=== PATIENT | male | born 1995 | race Caucasian/White ===

== ENCOUNTER 2020-02-10 00:39 | Observation (INO) | payer BC, SELFPAY ==
[2020-02-10] VITALS (10 sets, daily range): BP systolic 123–152; BP diastolic 70–93; PULSE 90–110; RESP 10–22; TEMP 36.3–37.7; O2SAT 90–100; BMI 29.7
--- NOTE | ~2020-02-10 | CT_ITS ---
EXAMINATION: CT chest abdomen pelvis w con DATE: 02/10/2020 09:16 INDICATION: Nausea and vomiting. Bilateral flank pain. TECHNIQUE: Computed tomography (CT) of the chest, abdomen, and pelvis was performed with 100 mL Omnip aque 350 intravenous contrast. Automated exposure control and iterative reconstruction technique were employed. The dose-length product was 811.48 mGy-cm. COMPARISON: CT abdomen and pelvis 08/25/2019 FINDINGS: CHEST CT: There are mild groundglass opacities in left lower lobe. No pleural effusion or pneumothorax. Pneumom ediastinum is noted. The heart size is normal. No pericardial effusion. There is mild thoracic spondy losis. ABDOMEN/PELVIS CT: There is an 8 mm cyst in the liver. The gallbladder, spleen, pancreas, adrenal glands, and kidneys ar e normal. There are no dilated loops of bowel. There is diverticulosis of the colon without evidence of diverticulitis. The appendix is normal. There are no dilated loops of bowel. There are no patholog ically enlarged lymph nodes. There is no free intraperitoneal fluid. There is mild lumbar spondylosis . IMPRESSION: 1. Pneumomediastinum. 2. Mild groundglass opacities in left lung lower lobe, consistent with atelectasis versus pneumonia. Reviewed, dictated and finalized at location A. IMPRESSION: 1. Pneumomediastinum. 2. Mild groundglass opacities in left lung lower lobe, consistent with atelecta sis versus pneumonia.
[2020-02-10] MEDS: LACTATED RINGERS 1,000 ML 999 ML IV CONT ×3 (00:52→01:39)
--- NOTE | 2020-02-10 00:57 | ED.GENADULT ---
HPI - General Adult General Chief complaint: Nausea/Vomiting/Diarrhea Stated complaint: Leg cramping Source: patient Mode of arrival: ambulatory Limitations: no limitations History of Present Illness HPI narrative: 24 y.o. developed abdominal pain and vomiting at 4 PM today after ingesting several beers and shots of alcohol. He thinks he vomited about 20 times over the last 9 hours. The initial emesis was clear, but then coffee ground sometimes, sometimes bilious (this is corroborated by his mother). A hot shower helps reduce his nausea. Between episodes of vomiting he drinks fluid which he vomits right back up. He has a hx of migraine headaches but none today. Just prior to arrival pt began having intense cramping in his calfs, right more than left. Pt became anxious with these symptoms, breathing faster and experiencing tingling in his hands. 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 He drinks Gatoraide throughout the day. Pt was hospitalized [facility] around June and again in August for IVF and tx. of vomiting. Hospital stays were 3 - 4 days. He had abdominal pain and vomiting after a tooth extraction in July. The E.D. note was reviewed. He had hypokalemia as well as A.K.I. and dehydration. Between episodes he is totally symptom free. He has a hx of anxiety and ADHD well controlled (per mother) with current meds. He gets heartburn several times a week which has not worsened and is not treated. He states he was a frequent drinker up until a year ago. Now he has a couple of beers on weekends. It's unusual for him to drink on weekdays. Related Data Home Medications Medication Instructions Recorded Confirmed bupropion HCl 150 mg PO DAILY 08/25/19 02/10/20 diazepam 10 mg PO DAILY 08/25/19 02/10/20 escitalopram oxalate 20 mg PO DAILY 08/25/19 02/10/20 oxcarbazepine 300 mg PO BID 08/25/19 02/10/20 dextroamphetamine-amphetamine 10 mg PO DAILY 02/10/20 02/10/20 [Adderall XR] Allergies Allergy/AdvReac Type Severity Reaction Status Date / Time No Known Allergies Allergy Verified 09/14/19 09:09 Review of Systems Constitutional: Constitutional: Denies chills, Reports fatigue and Denies fever(s) ENT: Denies dysphagia, Denies dizziness and Denies sore throat Cardiovascular: Cardiovascular: Denies chest pain Respiratory: Respiratory: Denies dyspnea Gastrointestinal: Gastrointestinal: Reports no additional gastrointestinal complaints Genitourinary: Genitourinary: Reports dysuria Musculoskeletal: Comments: muscle aching associated with his vomiting. Integumentary/Breasts: Comments: no rash Neurologic: Denies syncope Comments: no headache Psychiatric: Psychiatric: Reports no additional psychiatric complaints Hematologic/Lymphatic: Hematologic/Lymphatic: Denies easy bruising PMFSH Social History Social History (Updated 02/10/20 @ 01:02 by Abdiaziz Raymond) Years smoked: 6 Smoking status: Current every day smoker Tobacco type: cigarettes Second hand tobacco smoke exposure: Yes Alcohol intake: current Drinks per week: 4 Substance use: current Substance use type: marijuana Gender identity (if verbalized by the patient): Male Spiritual care concerns: No Exam Narrative: Exam Narrative: Pt limped through the E.D. on the way to his room secondary to leg cramps. Const: Orientation/consciousness: patient oriented x3 Other: In distress, c/o frequent calf cramping. HENMT: Mouth: Yes Normal oral and palatal mucosa present Eyes: Pupils: Equal, round and reactive pupils present EOM: EOMs intact bilaterally Neck: Neck: no lymphadenopathy Chest: Chest palpation & inspection: normal inspection of the chest Resp: Effort & Inspection: normal respiratory effort Auscultation: clear to auscultation bilaterally Cardio: Rate: not tachycardic Rhythm: regular rhythm GI: GI Palp:
[2020-02-10] MEDS: ONDANSETRON INJ 4 MG/2 ML VIAL IV PUSH ×2 (01:12→06:47)
[2020-02-10 01:35] LABS: Basophils Absolute Auto 0.09 K/mm3 (0.00-0.10); Basophils Percent Auto 0.5 % (0.0-1.0); Eosinophils Absolute Auto 0.02 K/mm3 (0.02-0.50); Eosinophils Percent Auto 0.1 % (1.0-6.0); Hematocrit 51.4 % (40.0-54.0); Immature Granulocyte Absolute 0.29 K/mm3 (0.00-0.00); Immature Granulocyte Percent A 1.7 % (0.0-0.0); Lymphocytes Absolute Auto 2.38 K/mm3 (1.10-4.50); Lymphocytes Percent Auto 14.2 % (18.0-42.0); Mean Corpuscular Hemoglobin 29.6 pg (27.0-31.0); Mean Corpuscular Volume 84.4 fL (78.0-102.0); Mean Platelet Volume 10.6 fl (8.7-11.0); Monocytes Absolute Auto 0.85 K/mm3 (0.10-0.90); Monocytes Percent Auto 5.1 % (2.0-11.0); Neutrophils Absolute Auto 13.1 K/mm3 (1.7-7.2); Neutrophils Percent Auto 78.4 % (50.0-70.0); Platelet Count Result 371 K/mm3 (150-420); Red Blood Count 6.09 M/mm3 (4.70-6.10); Red Cell Distribution Width 13.6 % (11.6-14.4); White Blood Count 16.7 K/mm3 (4.8-10.8)
[2020-02-10 01:43] LABS: Alanine Aminotransferase 39 U/L (16-63); Albumin Level 4.8 g/dL (3.4-5.0); Alkaline Phosphatase 116 U/L (46-116); Anion Gap 20.3 mmol/L (7-16); Aspartate Amino Transferase 26 U/L (15-37); Bilirubin,Total 1.9 mg/dL (0.00-1.00); Blood Urea Nitrogen 35 mg/dL (7-18); CRP 1.2 mg/dL (0.0-0.9); Calcium 9.7 mg/dL (8.5-10.1); Carbon Dioxide 27 mmol/L (21-32); Chloride 95 mmol/L (98-108); Creatine Kinase 322 U/L (39-308); Estimated CRCL calculation 51 ml/min; Estimated Glomerular Filt Rate 37; Ethanol < 3 mg/dL (0-6); Glucose 162 mg/dL (70-99); Lipase 55 U/L (73-393); Osmolality Calculated 300 mOsm/kg (285-295); Potassium 3.3 mmol/L (3.5-5.1); Sodium 139 mmol/L (136-145); Total Protein 8.3 g/dL (6.4-8.2)
[2020-02-10 01:46] LABS: Lactic Acid 3.4 mmol/L (0.4-2.0)
[2020-02-10] MEDS: PANTOPRAZOLE SODIUM IV 40 MG VIAL IV PUSH ×2 (01:47→09:28)
[2020-02-10] MEDS: PROMETHAZINE HCL 25 MG/ML AMPUL IM ×2 (01:52→10:07)
[2020-02-10 02:17] LABS: Add Urine Microscopic? YES; Appearance Urine Clear (Clear); Bilirubin Urine Negative (Negative); Blood Urine Negative (Negative); Color Urine Yellow (Yellow); Glucose Urine UA Negative (Negative); Ketones Urine 3+ (Negative); Leukocyte Esterase Ur Trace (Negative); Nitrate Urine Negative (Negative); Protein Urine Trace (Negative); Specific Grav Ur 1.015 (1.010-1.020); Urobilinogen Urine 0.2 mg/dL (0.2-1.0)
[2020-02-10 02:26] LABS: Amphetamine Screen Urine Negative (Negative); Barbiturate Screen Urine Negative (Negative); Benzodiazepines Screen Urine Positive (Negative); Cannabinoid Screen Urine Positive (Negative); Cocaine Screen Urine Negative (Negative); Methadone Screen Urine Negative (Negative); Opiate Screen Urine Negative (Negative); Phencyclidine Screen Urine Negative (Negative); RBC Urine 0-2 /hpf (0-2); Squamous Epithelial Cell Urine Rare /hpf (Few)
[2020-02-10 02:27] LABS: Bacteria Urine 1+ /hpf; Hyaline Casts Urine 30-49 /lpf
--- NOTE | 2020-02-10 02:35 | PC.NURSE ---
While pt is sleeping it is noted his oxygen sat drops 87-90%, pt placed on 2L NC. ERP aware
[2020-02-10] MEDS: KETOROLAC 30 MG/ML VIAL (*BKC) IV PUSH (02:47)
[2020-02-10] MEDS: LACTATED RINGERS 1,000 ML 125 ML IV CONT ×2 (03:11→12:10)
--- NOTE | 2020-02-10 03:53 | ADMGEN ---
This patient, Wenceslao Ruiz, was admitted to 2nd Floor Room 203-2. Patient oriented to hospital policies and general routines including ID bracelet, bed and alarms, visiting hours, pain management, procedures, bathroom and other care routines, personal items, smoking policy, room service/diet, and visiting hours. Information on how to activate the Rapid Response Team has been discussed. Patient encouraged to report perceived risks to care and to ask questions if they do not understand what they are told or what they should do.
--- NOTE | 2020-02-10 04:07 | PC.NURSE ---
pt is vomiting, charge master analyst calling Dr Angel regarding medication
--- NOTE | 2020-02-10 04:09 | PC.NURSE ---
Attempted to talk to Dr. Angel but he was with a patient in ER.
--- NOTE | 2020-02-10 04:50 | PM.EVENT ---
Event Note Event Note Event Note: Escitalopram held while taking Zofran 4 mg every 4 hours to decrease risk of prolonged QTc.
[2020-02-10 05:59] LABS: Basophils Absolute Auto 0.02 K/mm3 (0.00-0.10); Basophils Percent Auto 0.1 % (0.0-1.0); Eosinophils Absolute Auto 0.04 K/mm3 (0.02-0.50); Eosinophils Percent Auto 0.3 % (1.0-6.0); Hematocrit 47.2 % (40.0-54.0); Hemoglobin 16.3 g/dL (14.0-18.0); Immature Granulocyte Absolute 0.09 K/mm3 (0.00-0.00); Immature Granulocyte Percent A 0.6 % (0.0-0.0); Lymphocytes Absolute Auto 0.96 K/mm3 (1.10-4.50); Lymphocytes Percent Auto 6.7 % (18.0-42.0); Mean Corpuscular HGB Conc 34.5 g/dL (32.0-36.0); Mean Corpuscular Hemoglobin 29.6 pg (27.0-31.0); Mean Corpuscular Volume 85.8 fL (78.0-102.0); Mean Platelet Volume 10.2 fl (8.7-11.0); Monocytes Absolute Auto 0.52 K/mm3 (0.10-0.90); Monocytes Percent Auto 3.6 % (2.0-11.0); Neutrophils Absolute Auto 12.7 K/mm3 (1.7-7.2); Neutrophils Percent Auto 88.7 % (50.0-70.0); Platelet Count Result 301 K/mm3 (150-420); Red Cell Distribution Width 13.7 % (11.6-14.4); White Blood Count 14.4 K/mm3 (4.8-10.8)
--- NOTE | 2020-02-10 06:06 | PC.NURSE ---
[id number] Angel regarding pt's continued nausea and vomiting. New orders received and noted.
[2020-02-10 06:09] LABS: Anion Gap 15.5 mmol/L (7-16); Blood Urea Nitrogen 27 mg/dL (7-18); Calcium 9.1 mg/dL (8.5-10.1); Carbon Dioxide 29 mmol/L (21-32); Chloride 98 mmol/L (98-108); Estimated CRCL calculation 71 ml/min; Estimated Glomerular Filt Rate > 60; Glucose 125 mg/dL (70-99); Osmolality Calculated 294 mOsm/kg (285-295); Potassium 3.5 mmol/L (3.5-5.1); Sodium 139 mmol/L (136-145)
[2020-02-10 06:22] LABS: Lactic Acid 1.3 mmol/L (0.4-2.0)
[2020-02-10 06:28] LABS: Occult Blood Negative (Negative)
--- NOTE | 2020-02-10 06:36 | ECG_ITS ---
Measurements Intervals [place] Rate: 99 P: 56 LA: 166 QRS: 73 QRSD: 106 T: 22 QT: 381 QTc: 491 Interpretive Statements SINUS RHYTHM MINIMAL Q WAVES- INFERIOR LEADS NONSPECIFIC T-WAVE ABNORMALITY- LATERAL LEADS BORDERLINE ECG Electronically Signed On 02-10-2020 7:07:29 CDT by Monty Johnson D.O.
--- NOTE | 2020-02-10 07:43 | PC.NURSE ---
Continues to have bile color emesis off and on, abdominal cramping off and on, fluids infusing,
--- NOTE | 2020-02-10 08:08 | PC.NURSE ---
saline lock covered with plastic bag, up for hot shower to try to ease vomiting
--- NOTE | 2020-02-10 08:30 | PC.NURSE ---
shower complete, feels better, less nausea, capsaicin cream applied to abdomen
[2020-02-10] MEDS: CAPSAICIN 0.025% CREAM 60 GM TUBE 1 APPLIC TOPICAL ×3 (08:35→16:58)
[2020-02-10] MEDS: FAMOTIDINE 20 MG/ISO 50 ML 20 MG/50 ML BAG 100 MG IVPB (08:38)
--- NOTE | 2020-02-10 08:39 | PM.IMHP ---
H&P: HPI History of Present Illness Chief complaint: dehydration <Mary Timmons, JANN - Last Filed: 02/10/20 14:03> Narrative: Wenceslao Ruiz is a 24 year old male admitted late yesterday evening. He stated that yesterday he went to a friend's house had 2 shots of alcohol as well as a big tall beer, arrived home and started feeling sick to the stomach, started having nausea vomiting, reported that he vomited about 20 times, and was unable to stop himself. He reports having intermittent severe Vomiting episodes requiring multiple ER visits and hospitalizations over the last 6 months. Wenceslao continued to actively vomit in the ED, having coffee ground emesis as well as green bilious emesis. He was found to be severely dehydrated and was also experiencing severe leg cramps and pain. His admission creatinine of 2.24, lactic of 3.4, which improved with continuous 125 ml/hr IVFs to creatinine 1.41 with lactic 1.3 today. His alcohol level was checked when he came into the ER but found to be less than 3. His total bilirubin was elevated at 1.9 and elevated CRP at 1.2 today. LFTs wnl. Glucose levels consistently elevated, checking C-peptide and A1C. Wenceslao stated that he has always had a quick gag relex, will gag during teeth brushing. He also uses marijuana on a regular basis due to his anxiety. He sees a Psychiatrist every 2 months for 1-2 hours, and takes his medications daily. He does report having GI discomfort nearly every day upon waking, and will either have to eat something to get comfort or vomit to get comfort. Wenceslao admitted this morning to his nurse as well as to myself and Dr. Ibarra that on a rare occasion, when he is having significant abdominal pain or discomfort at home, wishes to relieve his pain by vomiting, that he will use his finger. His mother reports hearing Wenceslao in the morning when he brushes his teeth, gagging which she stated quickly leads to him vomiting, and is never just once, he ends up vomiting multiple times. She stated that his father also seems to have that problem. This morning I did witness the patient in a vomiting episode. Drinking water seemed to be the only possible trigger. It was a mixture of retching and vomiting of green bilious emesis, he has significantly strong and forceful vomiting reflex, and is complaining of a sore back and abdomen after his episodes. Changed patient to NPO. Ordered CT scan Chest Abd Pelvis. Instructed patient to take a hot shower and ordered Capscacin cream to be applied to his arms and entire abdomen. His relief was almost immediate. Wenceslao stated that the Capscacin cream really helped resolve his nausea, retching, and vomitting and he is now able to rest. Continue NPO status and IVFs at 125 ml/hr with goal to have very tight control and elimination of his nausea and vomitng. CT scan showed a pneumomediastinum. He stated that during his N/V episodes that he has some generalized soreness or discomfort at the anterior base of his throat/neck, but not severe and not at this current time of my exam. Patient is mostly asymptomatic; he denies SOB, dyspnea, chest or neck pain, denies pain with drinking or eating, no difficulty or discomfort taking deep breaths, both sides of chest with similar expansion, breath sounds clear and present to all lobes, no labored breathing or accessory muscle use with turns or sitting up in bed, and no subcutaneous emphysema. Vital signs are stable with no fevers at admission or overnight. But this morning, his temp is 37.6 C (99.68 F), HR 100, RR 20, BP 152/88, 98% on 2 L RA. Immediately called and discussed with patient and his mother, his transfer to higher level of care hospital for GI consultation with possible CT surgery consultation if needed. Wenceslao stated that he preferred to transfer to [facility], when I called [facility] transfer line they had no beds, so Wenceslao agreed to transfer to [facility], that is currently in process and awaiting call back from [facility] M
--- NOTE | 2020-02-10 09:00 | PC.NURSE ---
states feels like cream is working, noted a stinging sensation to abdomen which makes him not think about the cramping and nausea
--- NOTE | 2020-02-10 09:02 | PC.NURSE ---
to imaging via [facility]
[2020-02-10 09:05] LABS: Folic Acid 18.4 ng/mL (8.6->20); Magnesium 2.1 mg/dL (1.8-2.4); Phosphorus 4.4 mg/dL (2.6-4.7); Vitamin B12 587 pg/mL (193-986)
[2020-02-10 09:13] LABS: Free T4 Free Thyroxine Reflex 1.47 ng/dL (0.76-1.46); Thyroid Stimulating Hormone Reflex 0.24 u/IU/mL (0.36-3.74)
--- NOTE | 2020-02-10 09:21 | PC.NURSE ---
returned from imaging
[2020-02-10 09:33] LABS: Hemoglobin A1C 5.5 % (<5.7)
--- NOTE | 2020-02-10 10:24 | PC.NURSE ---
Starting to have nausea return, phenergan given
--- NOTE | 2020-02-10 11:16 | PC.NURSE ---
Resting quietly, no further emesis at this time, not ready to try oral meds yet, fluids infusing
--- NOTE | 2020-02-10 12:19 | PC.NURSE ---
Resting well, no vomiting, still not wanting oral meds, hospitalist attempting to transfer to [facility], placed on telemetry as ordered, no chest pain, no sob
--- NOTE | 2020-02-10 13:01 | PC.NURSE ---
[facility] accepts patient in transfer due to esophogeal tear, no distress, sleeping, telemetry ST
--- NOTE | 2020-02-10 14:03 | PM.DS ---
DS: Admitting Diagnosis Admitting Diagnosis Admitting Diagnosis: Dehydration <Mary Timmons NP - Last Filed: 02/10/20 16:36> DS: Discharge Diagnosis Discharge Diagnosis (1) Acute kidney injury: Code(s): N17.9 - Acute kidney failure, unspecified <Mary Timmons NP - Last Filed: 02/10/20 16:36> Status: Acute <Mary Timmons NP - Last Filed: 02/10/20 16:36> Assessment and Plan: due to severity of his prolonged hyperemesis telemetry monitoring replenish electrolytes as needed, potassium currently 3.5, magnesium currently 2.1, phosphorus currently 4.4 admission creatinine of 2.24, lactic of 3.4, which improved to creatinine 1.41 with lactic 1.3 today. continue IV fluids at 125 ml/hr as patient needs to remain NPO until GI evaluation/EGD. Improving with IV hydration but he did receive CT scan with IV contrast - continue to monitor. avoid further nephrotoxic meds <Mary Timmons NP - Last Filed: 02/10/20 16:36> (2) Acute dehydration: Code(s): E86.0 - Dehydration <Mary Timmons NP - Last Filed: 02/10/20 16:36> Status: Acute <Mary Timmons NP - Last Filed: 02/10/20 16:36> Assessment and Plan: due to severity of his prolonged hyperemesis either due to Cannabis hyperemesis syndrome or Cyclic Vomiting Syndrome telemetry monitoring replenish electrolytes as needed, potassium currently 3.5, magnesium currently 2.1, phosphorus currently 4.4 admission creatinine of 2.24, lactic of 3.4, which improved to creatinine 1.41 with lactic 1.3 today. continue IV fluids as patient needs to remain NPO until GI evaluation/EGD and or CT surgeon evaluation due to pneumomediastinum on CT scan, needs work up for possible perforation of esophagus/GI tract/or PUD, ensure patient can saftely eat and drink and maintain hydration and adequate nutrition prior to discharge. Transfer to GI Eval and possible Cyclic Vomiting Syndrome work up. Continue home antidepressants and PPIs. <Mary Timmons NP - Last Filed: 02/10/20 16:36> (3) Cannabis hyperemesis syndrome concurrent with and due to cannabis abuse: Code(s): F12.188 - Cannabis abuse with other cannabis-induced disorder <Mary Timmons NP - Last Filed: 02/10/20 16:36> Status: Acute <Mary Timmons NP - Last Filed: 02/10/20 16:36> Assessment and Plan: His HOT SHOWER and Capscacin Cream to abdomen/arms has really brought him great comfort and relief from N/V. Continue Capscacin and hot showers as needed. Using shower chair and nursing assistance appropriately. Giving IV Protonix due to Coffee Ground emesis report from Wenceslao's mother/the patient/ and the ER Dr. Angel report. Giving IV Pepcid due to persistent GERD and belching despite receiving protonix. ordered CT scan Chest/Abd/Pelvis: findings include Pneumomediastinum, and mild groundglass opacities in the LLL, consistent with atelectasis vs pneumonia. Wenceslao's Risk factors for Pneumomediastinum include: intubation from ankle surgery, patient gagging self with fingers, possible PUD, esophageal varicies, mary retching and vomitting from marijuana induced hyperemesis. Lung sounds are clear, no SOB, no wheezing, sats >94% on room air, no cough, no crepitus, no checking for H.Pylori changed to NPO status ordered PRN IV benadryl, zofran, promethazine; considering Reglan. Telemetry monitoring due to risk for prolonged QT interval due to anti-emetic use. transfer for GI consult, possible EGD. <Mary Timmons NP - Last Filed: 02/10/20 16:36> (4) Anxiety: Code(s): F41.9 - Anxiety disorder, unspecified <Mary Timmons NP - Last Filed: 02/10/20 16:36> Status: Acute <Mary Timmons NP - Last Filed: 02/10/20 16:36> Assessment and Plan: Continue seeing Psychiatrist every month. Continue home meds of Buproprion, Adderall XR, diazepam, lexapro, and oxcarbazepine. See weekly or biweekly counseling with a Psych
--- NOTE | 2020-02-10 14:04 | PC.NURSE ---
[facility], no bed yet, will call when available
--- NOTE | 2020-02-10 14:57 | PC.NURSE ---
No nausea, no vomiting, awaiting bed at [facility], NPO at this time, fluids infusing
--- NOTE | 2020-02-10 16:41 | PC.NURSE ---
Bed assignment obtained
--- NOTE | 2020-02-10 16:53 | PC.NURSE ---
Report to Taylor millan Quach, to go to [id number]
--- NOTE | 2020-02-10 17:01 | PC.NURSE ---
Refused IV zofran as offerred for nausea, no emesis since 744 this am, nausea off and on
--- NOTE | 2020-02-10 17:35 | PC.NURSE ---
Transfer via EMS to [facility], no emesis upon dc
[2020-02-13 04:24] LABS: C-Peptide 4.31 ng/mL (0.80-3.85)
[2020-02-13 11:15] LABS: Cortisol Random 68.6 mcg/dL (***)
[2020-02-13 18:54] LABS: H pylori, Urea Breath NOT DETECTED (NOT DETECTED)
[2020-02-14 05:01] LABS: Insulin Level Total 15.2 uIU/mL (<=19.6)
[2020-02-14 05:25] LABS: Hepatitis A Antibody IgM Nonreactive; Hepatitis B Core Antibody Nonreactive (Nonreactive); Hepatitis B Surface Antigen Nonreactive (Nonreactive); Hepatitis C Signal to Cutoff 0.01 ratio (<1.00); Hepatitis C Virus Antibody Nonreactive (Nonreactive)
== END 2020-02-10 17:35 | disposition short-term general hospital (02) ==
LOC: CHSED 00:44 → CHS2ND 02:28
PROVIDERS: Nurse Practitioner; Admitting Provider Family Medicine; Emergency Provider Family Medicine; PCP Family Medicine; Visit Provider Family Medicine
DX: E86.0 Dehydration (principal); N17.9 Acute kidney failure, unspecified; J98.2 Interstitial emphysema; M21.42 Flat foot [pes planus] (acquired), left foot; K21.9 Gastro-esophageal reflux disease without esophagitis; J39.2 Other diseases of pharynx; E05.90 Thyrotoxicosis, unspecified without thyrotoxic crisis or storm; F17.210 Nicotine dependence, cigarettes, uncomplicated; F41.9 Anxiety disorder, unspecified; F90.9 Attention-deficit hyperactivity disorder, unspecified type; F12.980 Cannabis use, unspecified with anxiety disorder
CPT/HCPCS: 36415; 71260; 74177; 80048; 80053; 80074; 80307; 81001; 82533; 82550; 82607; 82746; 83013; 83036; 83525; 83605; 83690; 83735; 84100; 84439; 84443; 84681; 85025; 86140; 87086; 93005; 96361; 96365; 96372; 96375; 96376; 99284; A9270; C9113; G0378; J1200; J1885; J2405; J2550; J3360; J7120; Q9965

== ENCOUNTER 2020-11-19 19:15 | Emergency (ER) | payer OTHER, SELFPAY ==
[2020-11-19 19:30] VITALS: BP 138/74; PULSE 94; RESP 18; TEMP 36.9; O2SAT 96
--- NOTE | 2020-11-19 20:03 | ED.GENADULT ---
HPI - General Adult General Chief complaint: Wound/Laceration Stated complaint: left leg lac Time Seen by Provider: 11/19/20 20:03 Source: patient and RN notes reviewed Mode of arrival: ambulatory Limitations: no limitations History of Present Illness HPI narrative: 25-year-old male presents with complaints of laceration to left lower, caused by a chain saw for the past 4.5 hours. Wenceslao reports while cutting a tree branch the chain slipped hitting LT leg causing lacerations. Cleaned areas and applied pressure and dressing, bleeding controlled. Denies focal weakness, altered sensation. Denies high fever or chills. Denies rash or skin lesions. Denies pain, numbness or tingling, or loss of mobility. No foreign body sensation. Tetanus NOT up-to-date, will update today. The patient reports he have not been diagnosed with COVID-19. The patient reports he is not waiting for the results of a COVID-19 lab test. The patient reports he do not have weakness or fatigue. The patient reports he do not have a new or worsening cough or shortness of breath. Denies chest pain. The patient reports he do not have any rhinorrhea, congestion, loss of taste or smell, sore throat, nausea, vomiting, abdominal pain, and diarrhea. Tolerating po intake well. Denies recent traveling. Denies concerns for COVID-19 or exposures been home with limited outdoor exposure except for essential household needs, work, and return home. At this time, patient is not suspected of having COVID-19. Some parts of this dictation were generated by voice recognition software and may contain typographical and/or grammatical inaccuracies. Related Data Home Medications Medication Instructions Recorded Confirmed diazepam 5 mg PO DAILY 08/25/19 11/19/20 escitalopram oxalate 20 mg PO DAILY 08/25/19 11/19/20 oxcarbazepine 300 mg PO BID 08/25/19 11/19/20 dextroamphetamine-amphetamine 10 mg PO DAILY 02/10/20 11/19/20 [Adderall XR] Allergies Allergy/AdvReac Type Severity Reaction Status Date / Time No Known Allergies Allergy Verified 11/19/20 19:44 Review of Systems Review of Systems: Narrative: CONSTITUTIONAL: Denies fever, chills, sweats. EYES: Denies visual changes, redness, discharge. ENT: Denies rhinorrhea, congestion, sore throat, otalgia. CARDIOVASCULAR: Denies chest pain, palpitations, edema. RESPIRATORY: Denies dyspnea, wheezing, cough. GASTROINTESTINAL: Denies abdominal pain, nausea, vomiting, or diarrhea. SKIN: Denies rash or itching. Complains of lacerations to left lower leg. MUSCULOSKELETAL: Denies acute back pain, joint pain, or myalgia. NEUROLOGIC: Denies numbness or focal weakness. PSYCHIATRIC: Denies anxiety or depression. All systems reviewed & are unremarkable except as noted in HPI and below. [facility] Past Medical History Medical History (Updated 11/20/20 @ 00:00 by [facility]) Alcohol use Anxiety Coffee ground emesis Depression Drug-induced nausea and vomiting Flat foot [pes planus] (acquired), left foot (09/25/18) GERD (gastroesophageal reflux disease) History of ETOH abuse Hyperactive gag reflex Marijuana use Pain in left ankle and joints of left foot Posterior tibial tendinitis, left leg (09/25/18) Sprain of deltoid ligament of left ankle, sequela Vomiting bile Surgical History Surgical History History of ankle surgery [place] teeth extracted Family History Family History Father Vomiting Grandparent Diabetes mellitus DM II with Insulin dependence Social History Social History (Updated 11/19/20 @ 21:01 by WESTLEY Quarles) Smoking packs per day: 1 Smoking cigarettes per day: 20.0 Years smoked: 6 Smoking pack-years: 6.00 Smoking status: Current every day smoker Tobacco type: cigarettes Second hand tobacco smoke exposure: Yes Alcohol intake: current Drinks pe
[2020-11-19] MEDS: TETANUS,DIPHTHERIA,AC PERTUSSIS ADULT (0.5 ML) BOOSTRIX IM (20:22)
== END 2020-11-19 20:58 | disposition home or self-care (01) ==
PROVIDERS: Emergency Provider Nurse Practitioner Family; PCP Family Medicine
DX: S81.812A Laceration without foreign body, left lower leg, initial encounter (principal); W29.3XXA Contact with powered garden and outdoor hand tools and machinery, initial encounter; Z23 Encounter for immunization; F17.210 Nicotine dependence, cigarettes, uncomplicated; F41.9 Anxiety disorder, unspecified; F32.9 Major depressive disorder, single episode, unspecified; K21.9 Gastro-esophageal reflux disease without esophagitis
CPT/HCPCS: 12002; 90471; 90715; 99213; G0463

== ENCOUNTER 2022-08-23 12:02 | Emergency (ER) | payer OTHER, MEDICAID, SELFPAY ==
[2022-08-23 12:11] VITALS: BP 138/88; PULSE 147; RESP 16; TEMP 36.9; O2SAT 98
[2022-08-23 12:43] LABS: Basophils Absolute Auto 0.09 K/mm3 (0.00-0.10); Basophils Percent Auto 0.9 % (0.0-1.0); Eosinophils Percent Auto 2.1 % (1.0-6.0); Hematocrit 46.9 % (40.0-54.0); Hemoglobin 15.9 g/dL (14.0-18.0); Immature Granulocyte Absolute 0.03 K/mm3 (0.00-0.00); Immature Granulocyte Percent A 0.3 % (0.0-0.0); Lymphocytes Absolute Auto 2.93 K/mm3 (1.10-4.50); Lymphocytes Percent Auto 30.1 % (18.0-42.0); Mean Corpuscular HGB Conc 33.9 g/dL (32.0-36.0); Mean Corpuscular Hemoglobin 29.6 pg (27.0-31.0); Mean Corpuscular Volume 87.3 fL (78.0-102.0); Mean Platelet Volume 10.3 fl (8.7-11.0); Monocytes Absolute Auto 0.63 K/mm3 (0.10-0.90); Monocytes Percent Auto 6.5 % (2.0-11.0); Neutrophils Absolute Auto 5.9 K/mm3 (1.7-7.2); Neutrophils Percent Auto 60.1 % (50.0-70.0); Platelet Count Result 321 K/mm3 (150-420); Red Blood Count 5.37 M/mm3 (4.70-6.10); Red Cell Distribution Width 12.6 % (11.6-14.4); White Blood Count 9.7 K/mm3 (4.8-10.8)
[2022-08-23 13:03] LABS: Alanine Aminotransferase 35 U/L (16-63); Albumin Level 4.2 g/dL (3.4-5.0); Alkaline Phosphatase 83 U/L (46-116); Anion Gap 8 mmol/L (8-16); Aspartate Amino Transferase 23 U/L (15-37); Bilirubin,Total 0.9 mg/dL (0.00-1.00); Blood Urea Nitrogen 9 mg/dL (7-18); Calcium 8.8 mg/dL (8.5-10.1); Carbon Dioxide 29 mmol/L (21-32); Chloride 104 mmol/L (98-108); Estimated Glomerular Filt Rate > 60; Glucose 111 mg/dL (70-99); Magnesium 1.9 mg/dL (1.8-2.4); Osmolality Calculated 291 mOsm/kg (285-295); Potassium 3.4 mmol/L (3.5-5.1); Salicylate 0.3 mg/dL (2.8-20.0); Sodium 141 mmol/L (136-145); Total Protein 7.4 g/dL (6.4-8.2)
[2022-08-23 13:05] LABS: Acetaminophen < 2 ug/mL (10-30); Ethanol < 3 mg/dL (0-6)
[2022-08-23 13:15] LABS: Add Urine Microscopic? YES; Appearance Urine Clear (Clear); Bilirubin Urine Negative (Negative); Blood Urine Negative (Negative); Color Urine Light Yellow (Yellow); Glucose Urine UA Negative (Negative); Ketones Urine Negative (Negative); Leukocyte Esterase Ur Trace LEU/UL (Negative); Nitrate Urine Negative (Negative); Protein Urine Negative (Negative)
[2022-08-23 13:18] LABS: SARS-CoV-2 RNA PCR Negative (Negative)
[2022-08-23 13:19] LABS: RBC Urine None seen /hpf (0-2); WBC Urine 0-3 /hpf (0-3)
[2022-08-23 13:20] LABS: Bacteria Urine Trace /hpf
[2022-08-23 13:21] LABS: Mucus Urine Few /lpf
[2022-08-23 13:23] LABS: Amphetamine Screen Urine Positive (Negative); Barbiturate Screen Urine Negative (Negative); Benzodiazepines Screen Urine Positive (Negative); Cannabinoid Screen Urine Negative (Negative); Cocaine Screen Urine Negative (Negative); Methadone Screen Urine Negative (Negative); Opiate Screen Urine Negative (Negative); Phencyclidine Screen Urine Negative (Negative)
--- NOTE | 2022-08-23 13:28 | PC.NURSE ---
patient continued to deny any suicidal ideation with ERP and RN in room. patient Refused any IM or PO medications when ERP offered to calm delusions. after erp left room patient put boots on and walked out of ED.
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
--- NOTE | 2022-08-23 13:44 | PCRCNOTE ---
1315 Attempted to do an EKG but pt was very paranoid and got up off the cot before he could be completely hooked up and began pacing the rivera.
== END 2022-08-23 13:59 | disposition left against medical advice (07) ==
PROVIDERS: Emergency Provider Emergency Medicine; PCP Internal Medicine Infectious Disease
DX: F22 Delusional disorders (principal); F23 Brief psychotic disorder; F15.90 Other stimulant use, unspecified, uncomplicated; F90.9 Attention-deficit hyperactivity disorder, unspecified type; F41.9 Anxiety disorder, unspecified; F17.210 Nicotine dependence, cigarettes, uncomplicated; Z20.822 Contact with and (suspected) exposure to COVID-19; Z79.899 Other long term (current) drug therapy
CPT/HCPCS: 36415; 80053; 80307; 81001; 83735; 85025; 93005; 99284; J1630; U0003; U0005

== ENCOUNTER 2022-12-12 18:20 | Emergency (ER) | payer OTHER, SELFPAY ==
--- NOTE | ~2022-12-12 | XR_ITS ---
XR finger 5th RT min 2V 12/12/2022 18:50 INDICATION: Right fifth finger infection PROCEDURE: 4 views right fifth finger COMPARISON: 05/08/2015 FINDINGS: Fracture, dislocation or subluxation is not identified. There is soft tissue swelling adjac ent to the fifth PIP joint. No erosive change to suggest osteomyelitis. No foreign bodies are identi fied. IMPRESSION: 1: Moderate soft tissue swelling adjacent to the fifth PIP joint. Reviewed, dictated and finalized at location A.
[2022-12-12 18:28] VITALS: BP 122/71; PULSE 120; RESP 18; TEMP 37.3; O2SAT 97
--- NOTE | 2022-12-12 18:28 | ED.GENADULT ---
HPI - General Adult General Chief complaint: Extremity Problem,Nontraumatic Stated complaint: Skin Sore/Finger Source: patient and RN notes reviewed History of Present Illness HPI narrative: 27 yo M presents to urgent care with complaints of right pinky finger pain and swelling. PT states he first noticed yesterday but today it swelled up more after swinging a hammer all day. Pt states he always has calluses on his hands from work and believes he had a blood blister in the middle of this swelling. Denies any drainage from the area, fevers, chills, vomiting, numbness, or tingling. Denies any known injury. Pt has taken 3 doses of ibuprofen today with good relief, last dose was around 16:30. Pt states the swelling has gone down a lot when compared to earlier today. Related Data Home Medications Medication Instructions Recorded Confirmed escitalopram oxalate 10 mg tablet 10 mg PO DAILY 12/12/22 12/12/22 hydroxyzine pamoate 25 mg capsule 25 mg PO TID 12/12/22 12/12/22 paliperidone palmitate 156 mg/mL 156 mg IM MONTHLY 12/12/22 12/12/22 intramuscular syringe (Invega Sustenna) risperidone 0.5 mg tablet 0.5 mg PO BID 12/12/22 12/12/22 risperidone 2 mg tablet 2 mg PO BID 12/12/22 12/12/22 Allergies Allergy/AdvReac Type Severity Reaction Status Date / Time No Known Allergies Allergy Verified 12/12/22 18:30 Review of Systems Review of Systems: Pertinent positives and pertinent negatives per HPI. [facility] Past Medical History Medical History (Updated 12/12/22 @ 19:06 by Nina Billy APRN) Alcohol use Anxiety Coffee ground emesis Depression Drug-induced nausea and vomiting Flat foot [pes planus] (acquired), left foot (09/25/18) GERD (gastroesophageal reflux disease) History of ETOH abuse Hyperactive gag reflex Marijuana use Pain in left ankle and joints of left foot Posterior tibial tendinitis, left leg (09/25/18) Sprain of deltoid ligament of left ankle, sequela Vomiting bile Surgical History Surgical History History of ankle surgery [place] teeth extracted Family History Family History Father Vomiting Grandparent Diabetes mellitus DM II with Insulin dependence Social History Social History (Updated 11/19/20 @ 21:01 by WESTLEY Quarles) Smoking packs per day: 1 Smoking cigarettes per day: 20.0 Years smoked: 6 Smoking pack-years: 6.00 Smoking status: Current every day smoker Tobacco type: cigarettes Second hand tobacco smoke exposure: Yes Alcohol intake: current Drinks per week: 4 Substance use: current Substance use type: methamphetamine and unknown Living arrangements: with family Occupation/Education: occupation Gender identity (if verbalized by the patient): Male Spiritual care concerns: No Comments At the time of my signature, I reviewed and agree with the nursing past medical, surgical, social, and family history. There is no relevant family history pertinent to the patient complaint. Exam Narrative: GENERAL: This is a well-nourished, well-developed patient, in no apparent distress. HEAD: normocephalic, atraumatic. EYES: Sclera clear/white. Vision is grossly intact. EARS: External ears normal, auditory canals clear and without drainage. Hearing grossly intact. NECK: Neck supple, non-tender without lymphadenopathy, masses or thyromegaly. CARDIOVASCULAR: Slightly tachycardic RESPIRATORY: No respiratory distress SKIN: warm, intact with no suspicious lesions or rash, good texture and turgor. NEURO: awake, alert, and oriented to person, place and time. There were no obvious focal neurologic abnormalities. EXTREMITIES: Erythema noted around right PIP joint with moderate swelling. Black dot noted to center of swelling, dorsally. no drainage. Pt has some ROM but not full due to swelling. Cap refill <3 sec. Course Course Level of Ca
[2022-12-12 18:45] VITALS: BP 122/71; PULSE 120; RESP 18; TEMP 37.3; O2SAT 97
== END 2022-12-12 19:10 | disposition home or self-care (01) ==
PROVIDERS: Emergency Provider Nurse Practitioner Family
DX: L03.011 Cellulitis of right finger (principal); F17.210 Nicotine dependence, cigarettes, uncomplicated; K21.9 Gastro-esophageal reflux disease without esophagitis; F41.9 Anxiety disorder, unspecified; F32.A Depression, unspecified
CPT/HCPCS: 73140; 99213; G0463

== ENCOUNTER 2023-04-07 05:27 | Emergency (ER) | payer OTHER, SELFPAY ==
--- NOTE | 2023-04-07 05:29 | ED.PSYCH ---
HPI - Psych General Chief Complaint: Psychiatric Symptoms Stated Complaint: psychiatric eval Time Seen by Provider: 04/07/23 05:28 Source: patient Mode of arrival: other ( police /[employer]) Limitations: clinical condition History of Present Illness HPI Narrative: patient is a 27-year-old male here with police/[employer] for his safety due to acute psychosis. psychology services called us to let us know he was coming and called [employer] / police to bring the patient to the emergency room due to the fact that he was having acute psychosis at home. He was barricaded in his back bedroom at home with his parents /mother and having acute psychotic features. Onset (ago): hour(s) Duration: constant History of same: Yes Relieving factors: none Exacerbating factors: none Associated psychiatric symptoms: none Associated symptoms: denies other symptoms Treatments prior to arrival: none Related Data Home Medications Medication Instructions Recorded Confirmed escitalopram oxalate 10 mg tablet 10 mg PO DAILY 12/12/22 12/12/22 hydroxyzine pamoate 25 mg capsule 25 mg PO TID 12/12/22 12/12/22 paliperidone palmitate 156 mg/mL 156 mg IM MONTHLY 12/12/22 12/12/22 intramuscular syringe (Invega Sustenna) risperidone 0.5 mg tablet 0.5 mg PO BID 12/12/22 12/12/22 risperidone 2 mg tablet 2 mg PO BID 12/12/22 12/12/22 Allergies Allergy/AdvReac Type Severity Reaction Status Date / Time No Known Allergies Allergy Verified 12/12/22 18:30 Review of Systems Review of Systems: All systems reviewed & are unremarkable except as noted in HPI and below Constitutional: Constitutional: Reports no additional constitutional complaints Eyes: Eyes: Reports no additional eye complaints ENT: Reports system reviewed and no additional complaints, except as documented Cardiovascular: Cardiovascular: Reports no additional cardiovascular complaints Respiratory: Respiratory: Reports no additional respiratory complaints Gastrointestinal: Gastrointestinal: Reports no additional gastrointestinal complaints Genitourinary: Genitourinary: Reports no additional male genitourinary complaints Musculoskeletal: Musculoskeletal: Reports no additional musculoskeletal complaints Integumentary/Breasts: Skin/Breast: Reports system reviewed and no additional complaints, except as docu Neurologic: Reports system reviewed and no additional complaints, except as documented Psychiatric: Psychiatric: Reports no additional psychiatric complaints Endocrine: Endocrine: Reports no additional endocrine complaints Hematologic/Lymphatic: Hematologic/Lymphatic: Reports no additional hematologic/lymphatic complaints Allergic/Immunologic: Allergic/Immunologic: Reports no additional allergic/immunologic complaints [facility] Past Medical History Medical History (Updated 04/07/23 @ 07:03 by Juan Chase MD) Alcohol use Anxiety Coffee ground emesis Depression Drug-induced nausea and vomiting Flat foot [pes planus] (acquired), left foot (09/25/18) GERD (gastroesophageal reflux disease) History of ETOH abuse Hyperactive gag reflex Marijuana use Pain in left ankle and joints of left foot Posterior tibial tendinitis, left leg (09/25/18) Sprain of deltoid ligament of left ankle, sequela Vomiting bile Surgical History Surgical History History of ankle surgery [place] teeth extracted Family History Family History Father Vomiting Grandparent Diabetes mellitus DM II with Insulin dependence Social History Social History Smoking packs per day: 1 Smoking cigarettes per day: 20.0 Years smoked: 6 Smoking pack-years: 6.00 Smoking status: Current every day smoker Tobacco type: cigarettes Second hand tobacco smoke exposure: Yes Alcohol intake: current Shreyas
--- NOTE | 2023-04-07 05:30 | PC.NURSE ---
Pt given as per order zyprexa 10mg IM to help calm behavior. Pt cannot follow simple commands and fighting/resiting staff. Attempting to calm pt c PD at bedside, pt continues staring into space and has no eye contact, he is unable to be redirected. He has noted unsteady gait and attempts to resist sitting.
--- NOTE | 2023-04-07 05:32 | ECG_ITS ---
Measurements Intervals [place] Rate: 82 P: 5 DC: 149 QRS: 52 QRSD: 98 T: 48 QT: 375 QTc: 438 Interpretive Statements SINUS RHYTHM EARLY REPOLARIZATION OTHERWISE NORMAL ECG COMPARED TO ECG 02/10/2020 06:03:13 NO SIGNIFICANT CHANGES Electronically Signed On 04-07-2023 10:00:02 CDT by Michael Silver M.D.
[2023-04-07] MEDS: OLANZapine 10 MG, WATER, STERILE FOR INJECTION 2.1 ML IM (05:34)
[2023-04-07 06:00] VITALS: PULSE 100; O2SAT 87
--- NOTE | 2023-04-07 06:05 | PC.NURSE ---
Pt became very sedated and semi conscious p given Zyprexa, pt assisted to bed to lying position and clothing removed along c belongings. Pt is now relaxed, upon assessment of VS pts. RR is shallow at approx 8-10 and SPO2 87% on RA. He is diaphoretic. Pt moved to RM 1 for closer observation, placed on O2 at 4L NC and monitor. Pts. SPO2 increased to 93%. He remains semi-conscious at this time p moving to RM 1. Pts eyes open but unable to comprehend or follow instruction.
[2023-04-07 06:13] VITALS: BP 143/92; PULSE 92; RESP 20; TEMP 37.2; O2SAT 99
[2023-04-07 06:18] LABS: Basophils Absolute Auto 0.06 K/mm3 (0.00-0.10); Basophils Percent Auto 0.8 % (0.0-1.0); Eosinophils Absolute Auto 0.04 K/mm3 (0.02-0.50); Eosinophils Percent Auto 0.5 % (1.0-6.0); Hematocrit 43.7 % (40.0-54.0); Immature Granulocyte Absolute 0.05 K/mm3 (0.00-0.00); Immature Granulocyte Percent A 0.7 % (0.0-0.0); Lymphocytes Absolute Auto 3.05 K/mm3 (1.10-4.50); Lymphocytes Percent Auto 39.7 % (18.0-42.0); Mean Corpuscular HGB Conc 34.3 g/dL (32.0-36.0); Mean Corpuscular Hemoglobin 30.4 pg (27.0-31.0); Mean Corpuscular Volume 88.5 fL (78.0-102.0); Mean Platelet Volume 9.8 fl (8.7-11.0); Monocytes Absolute Auto 0.64 K/mm3 (0.10-0.90); Monocytes Percent Auto 8.3 % (2.0-11.0); Neutrophils Absolute Auto 3.9 K/mm3 (1.7-7.2); Platelet Count Result 296 K/mm3 (150-420); Red Blood Count 4.94 M/mm3 (4.70-6.10); Red Cell Distribution Width 13.2 % (11.6-14.4); White Blood Count 7.7 K/mm3 (4.8-10.8)
[2023-04-07 06:28] VITALS: O2SAT 97
--- NOTE | 2023-04-07 06:38 | PC.NURSE ---
Pt is more awake and alert when entering room, He will open his eyes when asked and answer some questions that he wants to answer. VSS at this time, monitor shows NSR.
[2023-04-07 06:40] LABS: Alanine Aminotransferase 32 U/L (16-63); Alkaline Phosphatase 74 U/L (46-116); Anion Gap 13 mmol/L (8-16); Aspartate Amino Transferase 17 U/L (15-37); Bilirubin,Total 1.7 mg/dL (0.00-1.00); Blood Urea Nitrogen 18 mg/dL (7-18); Calcium 8.7 mg/dL (8.5-10.1); Carbon Dioxide 26 mmol/L (21-32); Chloride 102 mmol/L (98-108); Estimated Glomerular Filt Rate > 60; Glucose 150 mg/dL (70-99); Osmolality Calculated 296 mOsm/kg (285-295); Potassium 2.8 mmol/L (3.5-5.1); Sodium 141 mmol/L (136-145); Thyroid Stimulating Hormone 1.13 uIU/mL (0.36-3.74); Total Protein 7.2 g/dL (6.4-8.2)
[2023-04-07 06:41] VITALS: BP 129/88; PULSE 72; RESP 20; O2SAT 100
[2023-04-07 06:41] LABS: Acetaminophen < 2 ug/mL (10-30); Ethanol < 3 mg/dL (0-6); Salicylate < 0.2 mg/dL (2.8-20.0)
--- NOTE | 2023-04-07 06:45 | PC.NURSE ---
Pt sitting up in bed awake and alert, answering all question appropriately. ERP in to re-evaluate pt and he denies any SI/HI and won't discuss what happened tonight. Pt is cooperative c care at this time but now wanting to go home. ERP Dr Fernandez talking c pt about need for consultation c mental health but pt refuses. He states he wants to walk home and will sign AMA form.
[2023-04-07 06:50] VITALS: BP 138/74; PULSE 78; RESP 20; TEMP 36.6; O2SAT 100
--- NOTE | 2023-04-07 07:00 | PC.NURSE ---
Pts parents here and wanting to see pt. Pt is ok c parents coming to room. He still refuses talking to mental health resources. Pt signed AMA paperwork p talking c pt about need for resources and need for mental health eval. Risks/benefits explained to pt by ERP and he still signed paperwork. Pt left room and stormed out of ER and didn't want to discuss anything c parents.
== END 2023-04-07 07:00 | disposition left against medical advice (07) ==
PROVIDERS: Emergency Provider Emergency Medicine
DX: F23 Brief psychotic disorder (principal); F17.210 Nicotine dependence, cigarettes, uncomplicated
CPT/HCPCS: 36415; 80053; 80307; 84443; 85025; 93005; 96372; 99284

== ENCOUNTER 2023-04-26 17:16 | Emergency (ER) | payer OTHER, SELFPAY ==
[2023-04-26 17:19] VITALS: BP 142/89; PULSE 109; RESP 20; TEMP 36.4; O2SAT 99
[2023-04-26 17:59] LABS: Basophils Absolute Auto 0.1 K/mm3 (0.0-0.1); Basophils Percent Auto 0.6 % (0.2-1.2); Eosinophils Absolute Auto 0.1 K/mm3 (0-0.3); Eosinophils Percent Auto 1.6 % (0-4.4); Hematocrit 51.1 % (42.0-52.0); Hemoglobin 17.2 g/dL (14.0-18.0); Immature Granulocyte Absolute 0.03 K/mm3 (0.00-0.031); Immature Granulocyte Percent A 0.3 % (0-0.5); Lymphocytes Absolute Auto 2.21 K/mm3 (0.9-3.2); Lymphocytes Percent Auto 25.5 % (18.3-44.2); Mean Corpuscular HGB Conc 33.7 g/dl (32-36); Mean Platelet Volume 9.8 fl (7.4-10.4); Monocytes Absolute Auto 0.6 K/mm3 (0.1-0.6); Monocytes Percent Auto 7.2 % (2.6-8.5); Neutrophils Absolute Auto 5.6 K/mm3 (1.3-6.7); Neutrophils Percent Auto 64.8 % (45.5-73.1); Platelet Count Result 308 k/mm3 (150-375); Red Blood Count 5.74 M/mm3 (4.6-6.20); Red Cell Distribution Width 13.2 % (11.5-14.5); White Blood Count 8.7 K/mm3 (4.5-10.0)
[2023-04-26 18:01] LABS: Appearance Urine Clear (Clear); Bilirubin Urine Negative (Negative); Blood Urine Negative (Negative); Color Urine Yellow (Yellow); Glucose Urine UA Negative (Negative); Ketones Urine Negative (Negative); Leukocyte Esterase Ur Negative LEU/UL (Negative); Nitrate Urine Negative (Negative); Protein Urine Negative (Negative); Specific Grav Ur 1.022 (1.001-1.035)
[2023-04-26 18:08] LABS: Ethanol < 10 mg/dL (<10)
[2023-04-26 18:09] LABS: Alanine Aminotransferase 35 U/L (6-50); Albumin Level 4.6 g/dL (3.5-5.1); Alkaline Phosphatase 64 U/L (38-126); Anion Gap 9 mmol/L (8-16); Aspartate Amino Transferase 28 U/L (17-59); Bilirubin,Total 1.4 mg/dL (0.2-1.3); Blood Urea Nitrogen 16 mg/dL (9-20); Calcium 9.2 mg/dL (8.4-10.2); Carbon Dioxide 28 mmol/L (22-30); Chloride 103 mmol/L (98-107); Estimated CRCL calculation 103 ml/min; Estimated Glomerular Filt Rate > 60; Glucose 103 mg/dL (65-110); Potassium 4.2 mmol/L (3.4-5.0); Sodium 140 mmol/L (137-145)
[2023-04-26 18:19] LABS: Add Urine Microscopic? NO
[2023-04-26 18:36] LABS: SARS-CoV-2 RNA PCR Negative (Negative)
[2023-04-26 18:38] LABS: Amphetamine Screen Urine Negative (Negative); Barbiturate Screen Urine Negative (Negative); Benzodiazepines Screen Urine Negative (Negative); Cannabinoid Screen Urine Negative (Negative); Cocaine Screen Urine Negative (Negative); Methadone Screen Urine Negative (Negative); Opiate Screen Urine Negative (Negative); Phencyclidine Screen Urine Negative (Negative)
[2023-04-26 18:39] LABS: Thyroid Stimulating Hormone 0.906 uIU/mL (0.465-4.680)
--- NOTE | 2023-04-26 19:02 | PC.NURSE ---
Attempted to call Crisis for evaluation of pt with no answer. Voicemail left.
--- NOTE | 2023-04-26 19:25 | PC.NURSE ---
Shelley with Crisis called back for evaluation. She states a phone representative will be out soon.
--- NOTE | 2023-04-26 19:39 | ED.PSYCH ---
HPI - Psych General Chief Complaint: Psychiatric Symptoms Stated Complaint: mental issues Time Seen by Provider: 04/26/23 18:33 History of Present Illness HPI Narrative: Patient is a 27-year-old male presenting with psychotic symptoms. Patient's mother is at bedside and assists with the history. Patient states that he has struggled with visual and auditory hallucinations for many months. States that he has become increasingly paranoid and thinks that people are watching him and following him. States that every time he goes into a store everyone covers their eyes because they do not want to look at him. States that he hears voices and things under his floor which prevent him from sleeping. He denies suicidal ideation or homicidal ideation. His mother states that he has become progressively more unstable over the last several months. States that they tried to seek help several weeks ago but the patient ended up leaving AMA. He denies any physical complaints. Related Data Home Medications Medication Instructions Recorded Confirmed escitalopram oxalate 10 mg tablet 10 mg PO DAILY 12/12/22 12/12/22 hydroxyzine pamoate 25 mg capsule 25 mg PO TID 12/12/22 12/12/22 paliperidone palmitate 156 mg/mL 156 mg IM MONTHLY 12/12/22 12/12/22 intramuscular syringe (Invega Sustenna) risperidone 0.5 mg tablet 0.5 mg PO BID 12/12/22 12/12/22 risperidone 2 mg tablet 2 mg PO BID 12/12/22 12/12/22 Allergies Allergy/AdvReac Type Severity Reaction Status Date / Time No Known Allergies Allergy Verified 04/26/23 17:26 Review of Systems Review of Systems: All systems reviewed & are unremarkable except as noted in HPI and below PMFSH Past Medical History Medical History (Updated 04/26/23 @ 21:21 by Jossy oTvar MD) Alcohol use Anxiety Coffee ground emesis Depression Drug-induced nausea and vomiting Flat foot [pes planus] (acquired), left foot (09/25/18) GERD (gastroesophageal reflux disease) History of ETOH abuse Hyperactive gag reflex Marijuana use Pain in left ankle and joints of left foot Posterior tibial tendinitis, left leg (09/25/18) Sprain of deltoid ligament of left ankle, sequela Vomiting bile Surgical History Surgical History History of ankle surgery [place] teeth extracted Family History Family History Father Vomiting Grandparent Diabetes mellitus DM II with Insulin dependence Social History Social History Smoking packs per day: 1 Smoking cigarettes per day: 20.0 Years smoked: 6 Smoking pack-years: 6.00 Smoking status: Current every day smoker Tobacco type: cigarettes Second hand tobacco smoke exposure: Yes Alcohol intake: current Drinks per week: 4 Substance use: current Substance use type: does not use Living arrangements: with family Occupation/Education: occupation Gender identity (if verbalized by the patient): Male Spiritual care concerns: No Exam Narrative: GENERAL: Well-appearing, in no acute distress. HEAD: Normocephalic, atraumatic. EYES: PERRLA and EOMI. ENT: No epistaxis NECK: Supple. CHEST: No respiratory distress. HEART: Regular rate and rhythm ABDOMEN: Nondistended EXTREMITIES: Normal range of motion. SKIN: Warm, dry, no rash. NEURO: Alert and oriented x3. PSYCH: Somewhat inappropriate affect, he started giggling when saying the voices used to tell him to kill himself; denies SI or HI; speech is coherent and seemingly linear, does not appear to be responding to internal stimuli Course Vital Signs Vital signs: Vital Signs Temperature 97.6 F 04/26/23 17:19 Pulse Rate 109 H 04/26/23 17:19 Respiratory Rate 20 04/26/23 17:19 Blood Pressure 142/89 H 04/26/23 17:19 Pulse Oximetry 99 04/26/23 17:19 Oxygen Delivery Room Air 04/26/23 17:19 Te
--- NOTE | 2023-04-26 20:00 | PC.NURSE ---
Crisis arrived for evaluation. Representatives at bedside.
[2023-04-26 21:39] VITALS: BP 134/98; PULSE 86; RESP 18; O2SAT 96
== END 2023-04-26 21:40 | disposition home or self-care (01) ==
PROVIDERS: Preventive Medicine Aerospace Medicine; Emergency Provider Emergency Medicine; PCP Internal Medicine Infectious Disease
DX: F22 Delusional disorders (principal); Z20.822 Contact with and (suspected) exposure to COVID-19; F41.9 Anxiety disorder, unspecified; F32.A Depression, unspecified; K21.9 Gastro-esophageal reflux disease without esophagitis; F17.210 Nicotine dependence, cigarettes, uncomplicated
CPT/HCPCS: 36415; 80053; 80307; 81003; 84443; 85025; 87635; 99284

== ENCOUNTER 2024-05-31 14:51 | Emergency (ER) | payer OTHER, SELFPAY ==
[2024-05-31 15:30] VITALS: BP 140/80; PULSE 87; RESP 15; TEMP 36.6; O2SAT 100
--- NOTE | 2024-05-31 17:25 | ED.GENADULT ---
HPI - General Adult General Chief complaint: Unspecified Stated complaint: drug exposure History of Present Illness HPI narrative: 28-year-old male presents to the emergency department from [facility] with his mother at bedside for drug test. Patient states yesterday he found a baggy of a white substance on the ground at the sober house. He liked it and then reported it to his staff. States that everyone in the house was drug tested yesterday. He was told by staff today than he did go to the emergency department to get dressed tested again. He states he feels fine. No complaints. Related Data Home Medications Medication Instructions Recorded Confirmed escitalopram oxalate 10 mg tablet 10 mg PO DAILY 12/12/22 12/12/22 hydroxyzine pamoate 25 mg capsule 25 mg PO TID 12/12/22 12/12/22 paliperidone palmitate 156 mg/mL 156 mg IM MONTHLY 12/12/22 12/12/22 intramuscular syringe (Invega Sustenna) risperidone 0.5 mg tablet 0.5 mg PO BID 12/12/22 12/12/22 risperidone 2 mg tablet 2 mg PO BID 12/12/22 12/12/22 Allergies Allergy/AdvReac Type Severity Reaction Status Date / Time No Known Allergies Allergy Verified 05/31/24 14:51 Review of Systems Review of Systems: All systems reviewed & are unremarkable except as noted in HPI and below PMFSH Past Medical History Medical History (Updated 05/31/24 @ 17:33 by Anayeli Murillo PA-C) Alcohol use Anxiety Coffee ground emesis Depression Drug-induced nausea and vomiting Flat foot [pes planus] (acquired), left foot (09/25/18) GERD (gastroesophageal reflux disease) History of ETOH abuse Hyperactive gag reflex Marijuana use Pain in left ankle and joints of left foot Posterior tibial tendinitis, left leg (09/25/18) Sprain of deltoid ligament of left ankle, sequela Vomiting bile Surgical History Surgical History History of ankle surgery [place] teeth extracted Family History Family History Father Vomiting Grandparent Diabetes mellitus DM II with Insulin dependence Social History Social History Smoking packs per day: 1 Smoking cigarettes per day: 20.0 Years smoked: 6 Smoking pack-years: 6.00 Smoking status: Current every day smoker Tobacco type: cigarettes Second hand tobacco smoke exposure: Yes Alcohol intake: current Drinks per week: 4 Substance use: current Substance use type: does not use Living arrangements: with family Occupation/Education: occupation Gender identity (if verbalized by the patient): Male Spiritual care concerns: No Exam Narrative: GENERAL: Well-appearing, well-nourished, and in no acute distress. HEAD: Normocephalic, atraumatic. EYES: EOMI. ENT: Nares clear, no rhinorrhea or epistaxis. Mucous membranes moist. NECK: Supple. CHEST: Clear to auscultation. No respiratory distress. HEART: Regular rate and rhythm. No murmur heard. Normal peripheral pulses. ABDOMEN: Soft, nontender, nondistended, normal active bowel sounds. EXTREMITIES: Normal range of motion. No edema. SKIN: Warm, dry, no rash. NEURO: No focal deficits. Alert and oriented x3 Course Vital Signs Vital signs: Vital Signs Temperature 97.9 F 05/31/24 15:30 Pulse Rate 87 05/31/24 15:30 Respiratory Rate 15 05/31/24 15:30 Blood Pressure 140/80 05/31/24 15:30 Pulse Oximetry 100 05/31/24 15:30 Temperature 97.9 F 05/31/24 15:30 Pulse Rate 87 05/31/24 15:30 Respiratory Rate 15 05/31/24 15:30 Blood Pressure 140/80 05/31/24 15:30 Pulse Oximetry 100 05/31/24 15:30 Medical Decision Making [facility] Narrative Medical decision making narrative: 28-year-old male presents to the ER with his mom is bedside from [facility] for drug test. Patient liked a white baggy of substance he found on the ground the sober house yester
== END 2024-05-31 18:44 | disposition home or self-care (01) ==
LOC: ANHED 17:35
PROVIDERS: Emergency Provider Physician Assistant; PCP Internal Medicine Infectious Disease
DX: Z02.83 Encounter for blood-alcohol and blood-drug test (principal); F41.9 Anxiety disorder, unspecified; F32.A Depression, unspecified; F17.210 Nicotine dependence, cigarettes, uncomplicated
CPT/HCPCS: 99281

== ENCOUNTER 2024-09-26 09:24 | Emergency (ER) | payer OTHER, SELFPAY ==
--- NOTE | 2024-09-26 09:45 | ED_ITS ---
HPI - URI/Sore Throat General Chief Complaint: Upper Respiratory Infection Stated Complaint: Sinus/Bodyaches Time Seen by Provider: 09/26/24 09:45 History of Present Illness HPI Narrative: 28-year-old male presented for complaint of sore throat, body aches, sinus pressure/congestion, cough, fever/chills. onset yesterday. Denies sob, wheezing, n/v/d. Remains with similar symptoms. Taking Coricidin for symptoms. Related Data Home Medications ?Medication ?Instructions ?Recorded ?Confirmed ?Last Taken ?Type hydroxyzine pamoate 25 mg capsule 25 mg PO TID 12/12/22 12/12/22 Unknown History paliperidone palmitate 156 mg/mL 156 mg IM MONTHLY 12/12/22 12/12/22 Unknown History intramuscular syringe (Invega Sustenna) sertraline 100 mg tablet mg 09/26/24 Unknown History Allergies Allergy/AdvReac Type Severity Reaction Status Date / Time No Known Allergies Allergy Verified 09/26/24 09:27 Review of Systems Review of Systems: per HPI [facility] Past Medical History Medical History Alcohol use Drug-induced nausea and vomiting Coffee ground emesis Vomiting bile Hyperactive gag reflex Marijuana use Flat foot [pes planus] (acquired), left foot (09/25/18) Pain in left ankle and joints of left foot Posterior tibial tendinitis, left leg (09/25/18) Sprain of deltoid ligament of left ankle, sequela History of ETOH abuse Depression Anxiety GERD (gastroesophageal reflux disease) Surgical History Surgical History Lee teeth extracted History of ankle surgery Family History Family History Father Vomiting Grandparent Diabetes mellitus DM II with Insulin dependence Social History Social History Smoking packs per day: 1 Smoking cigarettes per day: 20.0 Years smoked: 6 Smoking pack-years: 6.00 Smoking status: Current every day smoker Tobacco type: cigarettes Second hand tobacco smoke exposure: Yes Alcohol intake: current Drinks per week: 4 Substance use: current Substance use type: does not use Living arrangements: with family Occupation/Education: occupation Gender identity (if verbalized by the patient): Male Spiritual care concerns: No Exam Narrative: GENERAL: Ill-appearing, nontoxic no acute distress. EYES: conjunctivae clear ENT: Mucous membranes moist. TM erythematous with normal light reflex bilaterally; no tragal tenderness. Oropharynx erythematous without lesions. No drooling, no hoarseness, no trismus, uvula midline. No tripod positioning, hot potato voice, or soft palate swelling. NECK: Supple. No lymphadenopathy CHEST: Clear to auscultation, breath sounds equal. No respiratory distress, speaks in full sentences. HEART: Regular rate and rhythm. No murmur heard. SKIN: Warm, dry, no rash. NEURO: Alert and oriented x3. Course Course Emergency Course: Patient is aware of diagnosis, understands and agrees to treatment plan. Anticipatory guidance given. Patient agrees to follow-up as directed and is aware of reasons to seek care at the emergency department. Portions of this record may have been created with voice recognition software Level of Care: Express Care Visit MDM - URI/Sore Throat MDM Narrative Medical decision making narrative: POS flu. Neg strep result reviewed with pt. Advise supportive treatments. Patient is appropriate for outpatient treatment and follow-up. Differential Diagnosis Differential diagnosis: Likely upper respiratory infection, viral infection and pharyngitis Discharge Plan Discharge Clinical Impression: Influenza Patient Disposition: Home, Self-Care Condition: Stable Instructions: Influenza (ED) Additional Instructions: Influenza positive You should avoid crowds until you are fever free for 24 hours without the use of fever reducing medications, or the symptoms are improved Rest. Drink plenty of fluids. Tylenol 1000mg every 8 hours as needed for pain/fever Recommend Flonase spray and Zyrtec (or Claritin/Karlie) for sinus pressure/congestion over the counter Cough syrup may cause drowsiness; avoid driving or take it at night time. Follow up with your primary care provider as needed Go to the ER for worsening symptoms or concerns Patient Language: Persian Prescriptions: New benzonatate 200 mg capsule 200 mg PO TID PRN (Reason: cough) Qty: 20 0RF methylprednisolone [Medrol (Aric)] 4 mg tablets,dose pack See Rx Instructions .ROUTE .COMPLEX Qty: 21 0RF Rx Instructions: orally per package directions No Action hydroxyzine pamoate 25 mg capsule 25 mg PO TID Invega Sustenna 156 mg/mL syringe 156 mg IM MONTHLY sertraline 100 mg tablet Follow-up/Referrals: Edwina,Milton De La Cruz MD [Primary Care Provider] - Stand Alone Forms: Work/School Release IP
[2024-09-26 09:54] LABS: EDCOVIDSCREEN Negative (Negative); EDINFLUASCREEN Positive (Negative); EDINFLUBSCREEN Negative (Negative); EDSTREPNEGPOS1 Negative (Negative)
== END 2024-09-26 09:55 | disposition home or self-care (01) ==
PROVIDERS: Emergency Provider Nurse Practitioner Family; PCP Internal Medicine Infectious Disease
DX: J10.1 Influenza due to other identified influenza virus with other respiratory manifestations (principal); Z20.822 Contact with and (suspected) exposure to COVID-19; K21.9 Gastro-esophageal reflux disease without esophagitis; F41.9 Anxiety disorder, unspecified; F17.210 Nicotine dependence, cigarettes, uncomplicated
CPT/HCPCS: 87081; 87426; 87804; 87880; 99213; G0463

== ENCOUNTER 2024-09-26 19:35 | Emergency (ER) | payer OTHER, SELFPAY ==
--- NOTE | ~2024-09-26 | XR_ITS ---
EXAMINATION: XR chest 2V Exam Date/Time: 09/26/2024 20:48 MUSIC THERAPIST HISTORY: CHEST PAIN Comparison: 09/14/2016. RESULT: Lines, tubes, and devices: None. Lungs and pleura: Clear. Cardiomediastinal silhouette: Stable. Other: No acute osseous or upper abdominal finding. IMPRESSION: No acute cardiopulmonary process. Reviewed, dictated and finalized at location K. C THERAPIST
[2024-09-26 19:37] VITALS: BP 139/84; PULSE 113; RESP 20; TEMP 37; O2SAT 100
--- OUTSIDE RECORDS SUMMARY | 2024-09-26 19:37 | XMS_ITS | Referral Summary ---
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 (06/14/2021 4:01 PM CDT): Drinking more again - cessation advised. Advised to cut back on use. Agreed to do so. Assessment & Plan (06/19/2019 2:57 PM CDT): Chronic condition, persistent symptoms, would benefit from reduction in use of alcohol. He does not feel that naltrexone has been beneficial. Despite this, it is my recommendation to continue using the naltrexone, and to continue to try to get the patient to discontinue use of alcohol. It is likely that he is using alcohol to help with sleep and to control some of the symptoms of PTSD. Supportive, insight-oriented counseling provided in the office today. Alcohol use disorder 01/30/2019 Assessment & Plan (12/14/2022 3:14 PM CDT): He no longer drinks daily, but still has a few beers not infrequently. He is in group therapy for substance use. Assessment & Plan (09/16/2022 1:32 PM EVP OPERATIONS): Chronic and persistent use. Advised against using alcohol and drugs. Patient states that he is going to continue using them. He does not have much interest to quit at this time. Assessment & Plan (08/07/2021 3:34 PM EVP OPERATIONS): He is still drinking heavily every day. Other mood problems seem to be better. We encouraged him to follow-up with psychiatry and seek assistance through other agencies such as [facility]. We will check some follow-up labs for toxic effects of heavy daily alcohol use. Assessment & Plan (10/10/2019 10:00 AM EVP OPERATIONS): Chronic issue, treatment recommended, does not wish to stop use at this time, but states that he tries to cut back issues. Supportive counseling and education provided regarding strategies for doing so. Substance use treatment highly advised but declined by the patient at this time. Assessment & Plan (01/30/2019 11:21 AM CDT): Chronic, persistent daily use. Start naltrexone 50 mg at bedtime and follow-up. AMANDA (generalized anxiety disorder) 01/30/2019 Assessment & Plan (06/03/2022 12:26 PM CDT): Chronic condition with persistent symptoms. Medication changes today: Clonidine 0.1 mg p.o. b.i.d. off-label for anxiety/impulse control Insight-oriented, supportive counseling provided. Continued management as discussed Assessment & Plan (01/14/2022 11:38 AM CDT): Chronic, stable. No change to treatment. Continue to monitor. Assessment & Plan (09/11/2021 9:44 PM EVP OPERATIONS): Chronic condition, persistent but stable symptoms. Medication changes today: None Continue management as discussed. Support provided. Assessment & Plan (06/14/2021 4:05 PM CDT): Chronic, persistent. Assessment & Plan (04/02/2021 5:52 PM CDT): Chronic condition, persistent but stable symptoms. Medication changes today: None Continue management as discussed. Support provided. Assessment & Plan (12/12/2020 5:06 PM CDT): Chronic, stable. No medication changes at this time. Continue to monitor at interval. Assessment & Plan (10/10/2019 9:57 AM EVP OPERATIONS): Chronic, persistent, difficult to tell whether not this is solely from an organic source-has genetic predisposition for certain-or if made worse by substance use issues-multiple. Continue current medication regimen. No changes except to try to target mood lability with Abilify. See additional problems. Assessment & Plan (06/19/2019 2:56 PM CDT): Chronic, persistent anxiety despite use of multiple different medications. Needs to start therapy at some point. Has been to unstable from a psychiatric standpoint to do so. Continue Lexapro 20 mg daily. Continue Valium 5 mg twice daily Consideration for addition of hydroxyzine in the future. Continue to monitor. Assessment & Plan (01/30/2019 11:20 AM CDT): F41.1 - Generalized Anxiety Disorder - chronic, stable symptoms of Generalized Anxiety Disorder including restlessness or feeling of feeling keyed up or on edge, being easily fatigued, difficulty concentrating or mind going blank, irritability, muscle tension, and sleep disturbance. The patient reports that the anxiety, worry, or physical symptoms cause clinically significant distress or impairment in social, occupational, or other important areas of functioning. Continue the following medications: - Lexapro 10 mg daily -Valium 5 mg in the morning-not to be taking in conjunction with alcohol or within 6 hours of use of any alcohol whatsoever Full informed consent provided by the patient to start/continue the current medication (or medications). The patient verbalized an understanding of the reason for initiating/continuing including the diagnosis and target symptoms for the medication recommended, the possible benefits and/or intended outcome of treatment, and as applicable, all available procedures involved in the proposed treatment, the possible risks and side effects, (including risk of medications to women and women who are ), the possible alternatives and complementary treatments, the possible results of not taking the recommended medications, (including but not limited to worsening symptoms, psychiatric instability, and even ), the possibility that this medication dose and/or frequency may need to be adjusted over time in consultation with Dr. Mcconnell. The patient verbalized an understanding of the need for ongoing medical and psychiatric monitoring on an interval basis. At this time, the patient verbalizes full consent to initiate/continue and understands the benefits and risks and wishes to proceed with full, informed consent. - supportive, insight-oriented counseling provided in the office today. - the patient is not participating in therapy Pain of foot 05/05/2014 Arthralgia of ankle 04/28/2014 Abdominal pain 03/11/2014 Assessment & Plan (09/05/2019 4:23 PM EVP OPERATIONS): Due to gastritis, IVF, supportive care. Clears only for now, improving and will advance diet as tolerated Tobacco use disorder 02/23/2013 Assessment & Plan (12/14/2022 3:12 PM CDT): He is no longer smoking cigarettes but is vaping. We recommended a pneumococcal vaccination. We can not give him immunizations here due to his insurance. Assessment & Plan (08/07/2021 3:28 PM EVP OPERATIONS): Smokes cigarettes, about a pack a day. He has no motivation to quit. His father has emphysema and he has relatives who had lung cancer. We discussed the importance of cutting back and quitting now while he is still young. Persistent mood disorder (CMS/HCC) 02/24/2008 Assessment & Plan (08/07/2021 3:31 PM EVP OPERATIONS): He has a long history of mood problems including anger, depression, and anxiety. He was diagnosed as bipolar by his psychiatrist. He is doing much better on medications which he takes every day, but still drinks too much. About two years ago he had some complications including a mild elevation of AST and probable alcoholic gastritis. He also smokes marijuana most days, just a couple of hits. 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 He gets up every day. He enjoys his work. 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 It sounds like there are still some issues that he needs to work on including his alcohol use, and lonely feelings when he gets home. He will continue current medications and keep his follow ups with psychiatry. Resolved Problems Problem Noted Date Diagnosed Date Resolved Date Hypomagnesemia 10/07/2023 10/07/2023 Hypocalcemia 10/07/2023 10/07/2023 Close exposure to COVID-19 virus 04/25/2021 08/05/2021 Overview (08/05/2021): Test negative. Hyperemesis 02/10/2020 12/30/2022 Overview (12/30/2022): Possibly due to cannabis use, pneumomediastinum on OSH CT per notes from 02/11/2020. Assessment & Plan (02/11/2020 9:40 AM CDT): Reportedly last cannabis use 2 weeks ago Pneumomediastinum on OSH CT. 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 Assessment & Plan (09/05/2019 4:23 PM EVP OPERATIONS): replete Intractable vomiting 09/04/2019 023 Overview (12/30/2022): Cyclic vomiting syndrome vs gastritis per evaluation in 2019. Assessment & Plan (09/04/2019 6:03 PM EVP OPERATIONS): Cyclic vomiting syndrome vs gastritis. Supportive care GI bleed 09/04/2019 12/30/2022 Overview (12/30/2022): See hospital records. Placed on PPI. Assessment & Plan (09/04/2019 6:08 PM EVP OPERATIONS): Monitor CBC. Protonix bid Sprain of ligament of tarsometatarsal joint 03/15/2014 08/05/2021 Overview (08/05/2021): Details lacking. Diarrhea 03/11/2014 08/05/2021 Overview (08/05/2021): Details lacking. Immunizations Name Administration Dates Next Due DTaP 04/15/2009, 2,10/28/1998,04/29,03/01/1998,1997 HPV, Quadrivalent 03/01/2015,10/27/2014,10/22/19 14 Hep B / HiB 05/01/2002,04/29/1998 Hep B, Adolescent or Pediatric 1997,1997 HiB 10/28/1998,03/01/1998,1997 IPV 05/01/2002,03/01/1998,1997 Influenza, Unspecified 10/08/2018(Deferred: Yudelka ent Refused) MMR 06/17/2002,10/28/1998 Meningococcal MCV4P (Menactra) 10/22/2013 OPV 10/28/1998 Pfizer SARS-CoV-2 Monovalent Vaccination (12+ Yrs) PURPLE 05/27/2021,05/06/2021 Tdap 11/19/2020,03/14/2012 Varicella 04/15/2009,06/17/2002 Social History Tobacco Use Types Packs/Day Years Used Date Smoking Tobacco: Every Day Cigarettes Cigars Smokeless Tobacco: Never Tobacco Cessation:Ready to Q uit: No; Counseling Given: Not Answered Alcohol Use Standard Drinks/Week Comments Yes 8 (1 standard drink = 0.6 oz pur e alcohol) AUDIT-C Answer Date Recorded Q1: How often do you have a drink containing alcohol? 4 or more times a week 10/06/2023 Q2: How many drinks containi ng alcohol do you have on a typical day when you are drinking? 5 or 6 Q3: How often do you have si x or more drinks on one occasion? Weekly 10/06/2023 PHQ-2 Answer Date Recorded PHQ-2 Total Score (If total score is 3 or more points, staff should administer the PHQ-9) 2 12/14/2022 Personal Safety Answer Date Recorded Have you ever been in or are you currently in a harmful physical or emotional relationship or is someone making you feel afraid or unsafe? Denies 02/24/2024 Sex and Gender Information Value Date Recorded Sex Assigned at Not on file Legal Sex Male 3:19 AM EVP OPERATIONS Gender Identity Not on file Sexual Orientation Not on file Last Filed Vital Signs Vital Sign Reading Time Taken Comments Blood Pressure 123/73 02/25/2024 3:19 PM CDT Pulse 94 02/25/2024 3:19 PM CDT Temperature 36.6 ??C (97.9 ??F) 02/25/2024 12:32 AM C DT Respiratory Rate 18 02/25/2024 3:19 PM CDT Oxygen Saturation 95% 02/25/2024 3:19 PM CDT Inhaled Oxygen Concentration - - Weight 94.9 kg (209 lb 3.5 oz) 02/24/2024 6:43 P M CDT Height 167.6 cm (5' 6 ) 02/24/2024 6:43 PM CDT Body Mass Index 33.77 02/24/2024 6:43 PM CDT Plan of Treatment Not on file Insurance [facility] CHOICE PLUS Advance Directives For more information, please contact: [phone] * Full Code (Latest Code Status on File) Date Activated Date Inactivated Comments 10/06/2023 7:38 PM 10/09/2023 4:49 PM * Full Code Date Activated Date Inactivated Comments 02/10/2020 6:52 PM 02/12/2020 4:44 PM * Full Code Date Activated Date Inactivated Comments 09/04/2019 5:46 PM 09/06/2019 8:13 PM * Full Code Date Activated Date Inactivated Comments 08/28/2019 7:00 AM 08/30/2019 6:47 PM * Full Code Date Activated Date Inactivated Comments 08/28/2019 4:14 AM 08/28/2019 7:00 AM Care Teams Loading Unit Operator Relationship Specialty Start Date End Date Milton Bland MD [address] [place] [id number] PCP - General Internal Medicine 08/07/21 Marck Gee MD Surgeon Thoracic Surgery 02/11/20 [place] [id number] [address] [place] [address] Consulting Physician Plastic Surgery 12/21/22
--- OUTSIDE RECORDS SUMMARY | 2024-09-26 19:37 | XMS_ITS | Patient Health Summary ---
Author Organization [email or web address] Address [address] [place] [address] Care Team Providers Care Head Boys Tennis Coach Name Role Phone Unavailable Primary Care Provider Unavailabl e Note from [facility],non-owned Affiliates and Associated Physician Practices is amultiple site organization consisting of ambulatory clinics and hospital sitesin [place], [place], [place] and [place]. This disclosure is being madepursuant to the Care Everywhere program and may not contain all information available regarding this patient. Last updated 18.[email or web address] Allergies No known active allergies Medications * Be aware that medications may not be up to date on this document. Always verify current medications with the patient. * hydrOXYzine hcl (ATARAX) 25 MG tablet(Started 03/01/2018) Take 1 tablet by mouth 3 times daily as needed (anxiety) Social History Tobacco Use Types Packs/Day Years Used Date Smoking Tobacco: Every Day Smokeless Tobacco: Never Alcohol Use Standard Drinks/Week Comments Yes 0 (1 standard drink = 0.6 oz pur e alcohol) Sex and Gender Information Value Date Recorded Sex Assigned at Not on file Gender Identity Not on file Sexual Orientation Not on file Last Filed Vital Signs Vital Sign Reading Time Taken Comments Blood Pressure 128/79 03/01/2018 1:39 PM CDT Pulse 92 03/01/2018 1:38 PM CDT Temperature 36.7 ??C (98 ??F) 03/01/2018 1:38 PM CDT Respiratory Rate 15 03/01/2018 1:38 PM CDT Oxygen Saturation 100% 03/01/2018 1:38 PM CDT Inhaled Oxygen Concentration - - Weight 72.6 kg (160 lb) 03/01/2018 1:38 PM CDT Height 172.7 cm (5' 8 ) 03/01/2018 1:38 PM CDT Body Mass Index 24.33 03/01/2018 1:38 PM CDT Procedures * HEPATITIS SCREEN ACUTE(Performed 03/01/2018) * HIV-1 HIV-2 ANTIBODY + HIV P24 AG RAPID PNL(Performed 03/01/2018) * URINE DRUG SCREEN IMMUNOASSAY(Performed 03/01/2018) * URINALYSIS REFLEX MICROSCOPIC REFLEX CULTURE(Performed 03/01/2018) * TSH(Performed 03/01/2018) * MAGNESIUM BLOOD(Performed 03/01/2018) * COMPREHENSIVE METABOLIC PANEL(Performed 03/01/2018) * CBC W AUTO DIFFERENTIAL(Performed 03/01/2018) Results * HIV-1 HIV-2 ANTIBODY + HIV P24 AG RAPID PNL (03/01/2018 2:23 PM CDT) [facility] HIV1/2 Ab + P24 Ag Rapid Non Reactive Non Reactive 03/01/2018 3:24 PM CDT [facility] Blood BLOOD SPECIMEN / Unknown Venipuncture / Unknown 03/01/2018 2:23 PM CDT 03/01/2018 2:50 PM CDT Narrative [facility] - 03/01/2018 3:24 PM CDT No Laboratory evidence of HIV infection. Evens Angel MD LAB - SEROLOGY ORDER CAITLIN [facility] [address] [place] [address] * URINALYSIS REFLEX MICROSCOPIC REFLEX CULTURE (03/01/2018 2:23 PM CDT) Pathologist [facility] Color UA Yellow Straw, Yellow 03/01/2018 2:36 PM CDT [facility] Clarity UA Clear Clear 03/01/2018 2:36 PM CDT [facility] Glucose UA Negative Negative 03/01/2018 2:36 PM CDT [facility] Bilirubin UA Negative Negative 03/01/2018 2:36 PM CDT [facility] Ketone UA Negative Negative 03/01/2018 2:36 PM CDT [facility] Specific [place] UA 1.016 1.005 - 1.030 03/01/2018 2:36 PM CDT [facility] Blood UA Negative Negative 03/01/2018 2:36 PM CDT [facility] pH UA 8.0 5.0 - 8.0 pH 03/01/2018 2:36 PM CDT [facility] Protein UA Negative Negative 03/01/2018 2:36 PM CDT [facility] Urobilinogen UA Negative Negative mg/dL 03/01/2018 2:36 PM CDT [facility] Nitrite UA Negative Negative 03/01/2018 2:36 PM CDT [facility] Leukocyte UA Negative Negative 03/01/2018 2:36 PM CDT [facility] Urine Microscopy Urine microscopy not indicated 03/01/2018 2:36 PM CDT [facility] Reflex Status Culture not indicated 03/01/2018 2:36 PM CDT [facility] Urine URINE SPECIMEN OBTAINED BY CLEAN CATCH PROCEDURE / Unknown Collection / Unknown 03/01/2018 2:23 PM CDT 03/01/2018 2:[address] [facility] - 03/01/2018 2:36 PM CDT Evens Angel MD LAB - URINALYSIS ORD ERABLES Performing Organization Address City/State/[facility] Co de Phone Number [facility] [address] [place] [id number] * CBC W AUTO DIFFERENTIAL (03/01/2018 2:23 PM CDT) WBC 6.8 4.4 - 10.7 x10E9/L 03/01/2018 2:33 PM CDT [facility] WBC Corrected x10E9/L 03/01/2018 2:33 PM CDT [facility] RBC 5.32 3.80 - 5.40 x10E12/L 03/01/2018 2:33 PM CDT [facility] Hemoglobin 15.7 12.0 - 17.6 gm/dL 03/01/2018 2:33 PM CDT [facility] Hematocrit 47.1 35.2 - 51.7 % 03/01/2018 2:33 PM CDT [facility] MCV 88.5 80.7 - 98.3 fl 03/01/2018 2:33 PM CDT [facility] MCH 29.5 26.7 - 34.0 pg 03/01/2018 2:33 PM CDT [facility] MCHC 33.3 30.8 - 35.9 gm/dL 03/01/2018 2:33 PM CDT [facility] Platelet Count 284 153 - 416 x10E9/L 03/01/2018 2:33 PM CDT [facility] RDW-CV 13.2 12.1 - 14.9 % 03/01/2018 2:33 PM CDT [facility] MPV 10.5 9.4 - 12.9 fl 03/01/2018 2:33 PM CDT [facility] Neutrophils % 58.7 44.0 - 73.0 % 03/01/2018 2:33 PM CDT [facility] Lymphocytes % 29.4 20.0 - 43.0 % 03/01/2018 2:33 PM CDT [facility] Monocytes % 8.3 5.0 - 13.0 % 03/01/2018 2:33 PM CDT [facility] Eosinophils % 2.6 0.0 - 6.0 % 03/01/2018 2:33 PM CDT [facility] Basophils % 0.7 0.0 - 2.0 % 03/01/2018 2:33 PM CDT [facility] Immature Granulocytes 0.3 0 - 1 % 03/01/2018 2:33 PM CDT [facility] Neutrophil Absolute 4.01 2.01 - 7.14 x10E9/L 03/01/2018 2:33 PM CDT [facility] Lymphocytes Absolute 2.01 1.07 - 3.94 x10E9/L 03/01/2018 2:33 PM CDT [facility] Monocytes Absolute 0.57 0.26 - 1.07 x10E9/L 03/01/2018 2:33 PM CDT [facility] Eosinophils Absolute 0.18 0 - 0.47 x10E9/L 03/01/2018 2:33 PM CDT [facility] Basophils Absolute 0.05 0 - 0.08 x10E9/L 03/01/2018 2:33 PM CDT [facility] Immature Granulocytes Absolute 0.02 0.00 - 0.06 x10E9/L 03/01/2018 2:33 PM CDT [facility] nRBC Auto 0 /100 WBC 03/01/2018 2:33 PM CDT [facility] Blood BLOOD SPECIMEN / Unknown Venipuncture / Unknown 03/01/2018 2:23 PM CDT 03/01/2018 2:27 PM CDT Evens Angel MD LAB - HEMATOLOGY ORD ERABLES [facility] [address] [place] [address] * (ABNORMAL) COMPREHENSIVE METABOLIC PANEL (03/01/2018 2:23 PM CDT) Glucose 83 74 - 106 mg/dL 03/01/2018 2:49 PM CDT [facility] Sodium 140 136 - 145 mmol/L 03/01/2018 2:49 PM CDT [facility] Potassium 4.5 3.5 - 5.1 mmol/L 03/01/2018 2:49 PM CDT [facility] Chloride 104 98 - 107 mmol/L 03/01/2018 2:49 PM CDT [facility] CO2 32(H) 22 - 31 mmol/L 03/01/2018 2:49 PM CDT [facility] Calcium 8.7 8.5 - 10.1 mg/dL 03/01/2018 2:49 PM CDT [facility] Anion Gap 4(L) 8 - 16 mmol/L 03/01/2018 2:49 PM CDT [facility] BUN 16 7 - 21 mg/dL 03/01/2018 2:49 PM CDT [facility] Creatinine 0.96 0.50 - 1.30 mg/dL 03/01/2018 2:49 PM CDT [facility] Alkaline Phosphatase 78 38 - 126 U/L 03/01/2018 2:49 PM CDT [facility] ALT 27 13 - 61 U/L 03/01/2018 2:49 PM CDT [facility] AST 12 5 - 40 U/L 03/01/2018 2:49 PM CDT [facility] Protein Total 6.8 6.4 - 8.2 gm/dL 03/01/2018 2:49 PM CDT [facility] Albumin 3.9 3.4 - 5.0 gm/dL 03/01/2018 2:49 PM CDT [facility] Bilirubin Total 0.9 0.2 - 1.0 mg/dL 03/01/2018 2:49 PM CDT [facility] eGFR by MDRD >60 >60 mL/min/1.7 3m2 03/01/2018 2:49 PM CDT [facility] eGFR by MDRD >60 >60 mL/min/1.7 3m2 03/01/2018 2:49 PM CDT [facility] Blood BLOOD SPECIMEN / Unknown Venipuncture / Unknown 03/01/2018 2:23 PM CDT 03/01/2018 2:27 PM CDT Evens Angel MD LAB - CHEMISTRY [place] [facility] Organization Address City/State/ZIP Co de Phone Number [facility] [address] [place] [address] * DRUG SCREEN TOX URINE PANEL (03/01/2018 2:23 PM CDT) Pathologist [facility] Amphetamines Screen Urine Not Detected Not Detected 03/01/2018 3:06 PM CDT [facility] Barbiturates Screen Urine Not Detected Not Detected 03/01/2018 3:06 PM CDT [facility] Benzodiazepines Screen Urine Not Detected Not Detected 03/01/2018 3:06 PM CDT [facility] Cannabinoids Screen Urine Not Detected Not Detected 03/01/2018 3:06 PM CDT [facility] Cocaine Screen Urine Not Detected Not Detected 03/01/2018 3:06 PM CDT [facility] Methadone Screen Urine Not Detected Not Detected 03/01/2018 3:06 PM CDT [facility] Opiate Screen Urine Not Detected Not Detected 03/01/2018 3:06 PM CDT [facility] Phencyclidine Screen Urine Not Detected Not Detected 03/01/2018 3:06 PM CDT [facility] Urine URINE / Unknown Collection / Unknown 03/01/2018 2:23 PM CDT 03/01/2018 2:27 PM CDT Narrative [facility] - 03/01/2018 3:06 PM CDT This drug screen is designed for MEDICAL purposes only. It is not to be used for legal purposes, including but not limited to worker's comp, police investigations, occupational issues, child custody, etc. ??Any positive result is only presumptive and must be confirmed with a separate confirmatory test ordered by the physician. Drug Screening Test Cutoff Values: AMPHETAMINES ?1000 ng/mL BARBITURATES ? 200 ng/mL BENZODIAZEPINES ??200 ng/mL CANNABINOIDS(THC) 50 ng/mL COCAINE ?300 ng/mL METHADONE ?300 ng/mL OPIATES ?300 ng/mL PHENCYCLIDINE(PCP)25 ng/mL Evens Angel MD LAB - URINE CHEMISTR Y ORDERABLES Performing Organization Address [facility] de Phone Number [facility] [id number] [place] [address] * MAGNESIUM BLOOD (03/01/2018 2:23 PM CDT) [facility] Magnesium 2.1 1.6 - 2.6 mg/dL 03/01/2018 2:49 PM CDT [facility] Blood BLOOD SPECIMEN / Unknown Venipuncture / Unknown 03/01/2018 2:23 PM CDT 03/01/2018 2:27 PM CDT Evens Angel MD LAB - CHEMISTRY [place] Performing Organization Address [facility] de Phone Number [facility] [address] [place] [phone] * TSH (03/01/2018 2:23 PM CDT) [facility] TSH 0.467 0.358 - 3.740 uIU/mL 03/01/2018 2:57 PM CDT [facility] Blood BLOOD SPECIMEN / Unknown Venipuncture / Unknown 03/01/2018 2:23 PM CDT 03/01/2018 2:27 PM CDT Evens Angel MD LAB - CHEMISTRY [place] Performing Organization Address [facility] de Phone Number [facility] [id number] [place] [address] * HEPATITIS SCREEN ACUTE (03/01/2018 2:23 PM CDT) [facility] HAV Antibody IgM Non Reactive Non Reactive 03/02/2018 6:46 PM CDT [facility] HBsAg Non Reactive Non Reactive 03/02/2018 6:46 PM CDT [facility] HBc Antibody IgM Non Reactive Non Reactive 03/02/2018 6:46 PM CDT [facility] HCV Antibody Screen Non Reactive Non Reactive 03/02/2018 6:46 PM CDT [facility] HCV S/C Ratio 0.08 0.00 - 0.79 03/02/2018 6:46 PM CDT [facility] Comment: Blscvg-sn-bucnnp ratio (S/CO) <0.80:?? Non Reactive Blood BLOOD SPECIMEN / Unknown Venipuncture / Unknown 03/01/2018 2:23 PM CDT 03/01/2018 2:50 PM CDT [facility] - 03/02/2018 6:46 PM CDT Non Reactive - Antibodies to Hepatitis C virus (HCV) were not detected, result does not exclude early acute HCV infection. Non Reactive - Antibodies to Hepatitis C virus (HCV) were not detected, result does not exclude early acute HCV infection. Evens Angel MD LAB - CHEMISTRY [place] [facility] Organization Address City/State/ZIP Co de Phone Number [facility] [address] [place] [address]
--- OUTSIDE RECORDS SUMMARY | 2024-09-26 19:37 | XMS_ITS | Clinical Summary ---
Author Organization [facility] Address [address] [place] [address]. 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 Gender Identity Not on file Sexual Orientation Not on file Plan of Treatment Health Maintenance Due Date Last Done Comments Annual Physical 2000 HPV Vaccines (1 - Male 3-dos e series) 2012 DTaP, Tdap and Td Vaccines ( 1 - Tdap) 2016 Hepatitis B Vaccines (1 of 3 - 19+ 3-dose series) 2016 COVID-19 Vaccine ( - 2023-2 5 season) 2024 Influenza Adult (#1) 2024 Hepatitis C Completed 04/30/2016 Meningococcal B Vaccine Aged Out No l onger eligible based on patient's age to complete this topic Meningococcal Vaccine Aged Out No sahil amari eligible based on patient's age to complete this topic Pneumococcal Vaccine: Pediat rics (0 to 5 Years) and At-Risk Patients (6 to 64 Years) Aged Out No longer eligi ble based on patient's age to complete this topic RSV Immunizations Under 20 Months Aged Out No longer eligible based on patient's age to complete this topic Procedures Procedure Name Priority Date/Time Associated Diagnosis Comments HEPATITIS PANEL,ACUTE NOW 04/30/2016 12:54 PM CDT from Last 3 Months or Most Recently Relevant to Health Maintenance Results * HEPATITIS PANEL,ACUTE (04/30/2016 12:54 PM CDT) HEPATITIS B SURFACE AG NON-REACTI VE NON-REACT CARM[place] 05/01/2016 8:50 AM CDT [facility] Comment:HBsAg NOT DETECTED. HEP B CORE IGM NON-REACTI VE NON-REACT CARMELINA 05/01/2016 8:50 AM CDT [facility] Comment: IgM ANTI HBc NOT DETECTED. DOES NOT EXCLUDE THE POSSIBILITY OF EXPOSURE TO OR INFECTION WITH HBV. NO RETEST REQUIRED. HAV IGM NON-REACTI VE NON-REACT CARMELINA 05/01/2016 8:50 AM CDT [facility] Comment: IgM ANTI HAV NOT DETECTED. DOES NOT EXCLUDE THE POSSIBILITY OF EXPOSURE TO OR INFECTION WITH HAV. LEVELS OF IgM ANTI HAV MAY BE BELOW THE CUTOFF IN EARLY INFECTION. HEPATITIS C AB NON-REACTI VE NON-REACT CARMELINA 05/01/2016 8:50 AM CDT [facility] Comment: ANTIBODIES TO HCV NOT DETECTED. DOES NOT EXCLUDE THE POSSIBILITY OF EXPOSURE TO HCV. 04/30/2016 12:5 4 PM CDT 04/30/2016 12:55 PM CDT us Generic Conversion [facility] Final R esult [facility] [place] [address], [id number] from Last 3 Months or Most Recently Relevant to Health Maintenance
--- OUTSIDE RECORDS SUMMARY | 2024-09-26 19:37 | XMS_ITS | Referral Summary ---
Author Organization [facility] Address [address] [place] [place] [address] Care Team Providers Care Torch Heater Name Role Phone Unavailable Primary Care Provider Unavailabl e Source Comments [facility],non-owned Affiliates and Associated Physician Practices is amultiple site organization consisting of ambulatory clinics and hospital sitesin [place], [place], [place] and [place]. This disclosure is being madepursuant to the Care Everywhere program and may not contain all information available regarding this patient. Last updated 18.[facility] Allergies No known active allergies Medications * Be aware that medications may not be up to date on this document. Alwaysverify current medications with the patient. Medication Sig Dispensed Refills Start Date End Date Status hydrOXYzine hcl (ATARAX) 25 MG tablet Take 1 tablet by mouth 3 times daily as needed (anxiety) 21 tablet 03/01/2018 Active Social History Tobacco Use Types Packs/Day Years [...] Mass Index 24.33 03/01/2018 1:38 PM CDT Plan of Treatment Not on file Procedures Procedure Name Priority Date/Time Associated Diagnosis Comments HEPATITIS SCREEN ACUTE Add on 03/01/2018 2:23 PM CDT from Last 3 Months or Most Recently Relevant to Health Maintenance Results * HEPATITIS SCREEN ACUTE (03/01/2018 2:23 PM CDT) HAV Antibody IgM Non Reactive Non Reactive 03/02/2018 6:46 PM CDT [facility] HBsAg Non Reactive Non Reactive 03/02/2018 6:46 PM CDT [facility] HBc Antibody IgM Non Reactive Non Reactive 03/02/2018 6:46 PM CDT [facility] HCV Antibody Screen Non Reactive Non Reactive 03/02/2018 6:46 PM CDT [facility] HCV S/C Ratio 0.08 0.00 - 0.79 03/02/2018 6:46 PM CDT [facility] Comment: Kiqzst-jc-dnlghs ratio (S/CO) <0.80:?? Non Reactive Blood BLOOD SPECIMEN / Unknown Venipuncture / Unknown 03/01/2018 2:23 PM CDT 03/01/2018 2:50 PM CDT Narrative [facility] - 03/02/2018 6:46 PM CDT Non Reactive - Antibodies to Hepatitis C virus (HCV) were not detected, result does not exclude early acute HCV infection. Non Reactive - Antibodies to Hepatitis C virus (HCV) were not detected, result does not exclude early acute HCV infection. Evens Angel MD LAB - CHEMISTRY [place] [facility] [address] [place] [address] from Last 3 Months or Most Recently Relevant to Health Maintenance
--- OUTSIDE RECORDS SUMMARY | 2024-09-26 19:37 | XMS_ITS | Clinical Summary ---
Author Organization [facility] [address] [facility] lt Address [address] [place] [address] Care Team Providers Care Custom Stock Maker Name Role Phone Marck Gee MD Unavailable Milotn Bland MD Primary Care Provider [phone] Victoria Tran MD Unavailable [phone] Allergies No known active allergies Medications albuterol [...] 5th finger, seen in Urgent Care and [facility] ER. Assessment & Plan (12/17/2022 4:44 PM CDT): The right fifth finger cellulitis persists. It centers over the dorsal fifth PIP joint where the wound remains open and gaping with exposure of subcutaneous fat. He did go back to work and was swinging a hammer which is probably not the best thing for this condition. 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 There is no definite tendon or [...] planned. Assessment & Plan (09/16/2022 1:32 PM ZIPPER MEASURER): Subacute, interval improvement with initiation of Invega [...] monitor. Assessment & Plan (08/30/2022 8:31 PM ZIPPER MEASURER): Acute on chronic. Denies SI HI Start Invega - titrate up for effect. 2 wk f/u - plan peter MYERS if eff. Prediabetes 05/30/2022 Assessment & Plan (05/30/2022 3:53 PM CDT): A1c = 5.8% Eat more whole foods Patellar bursitis of left knee 05/26/2021 Assessment & Plan (08/25/2021 4:57 PM ZIPPER MEASURER): About two months ago, he developed some [...] 01/04/2020 Assessment & Plan (11/01/2022 7:51 PM ZIPPER MEASURER): Discontinue Adderall since has relapsed again. Assessment & Plan (08/30/2022 8:33 PM ZIPPER MEASURER): Chronic, persistent symptoms of inattention, distractibility, inability [...] discussed. Assessment & Plan (09/11/2021 9:44 PM ZIPPER MEASURER): Chronic, persistent symptoms of inattention, distractibility, inability [...] freq. Assessment & Plan (11/01/2022 7:52 PM ZIPPER MEASURER): Strongly encouraged cessation. Not ready to quit. Referred for substance use treatment. Ambivalent about treatment. Assessment & Plan (09/16/2022 1:32 PM ZIPPER MEASURER): Chronic, persistent use. Likely contributing to psychosis. Not ready or willing to quit at this time. Encouraged substance use treatment. Declined. Assessment & Plan (08/30/2022 8:34 PM ZIPPER MEASURER): Not using. Strongly cautioned - no use. Agreed. Assessment & Plan (06/03/2022 12:23 PM CDT): Recommend decreasing overall use. Assessment & Plan (08/07/2021 3:32 PM ZIPPER MEASURER): He smokes a little bit every day which helps him calm down after a day of work. Assessment & Plan (06/14/2021 3:59 PM CDT): Reduce overall use. Assessment & Plan (10/10/2019 9:55 AM ZIPPER MEASURER): Chronic, persistent, does not see as a [...] labs Assessment & Plan (09/05/2019 4:23 PM ZIPPER MEASURER): Due to intractable vomiting, improving, cont to monitor Cannabis abuse, daily use 09/01/2019 Bipolar and related disorder ([facility]/HCC) 9 Assessment & Plan (06/03/2022 12:26 PM [...] interval. Assessment & Plan (10/10/2019 9:59 AM ZIPPER MEASURER): Chronic, persistent, admixed with substance use issues. [...] consent. Assessment & Plan (09/04/2019 6:02 PM ZIPPER MEASURER): [facility] home meds Assessment & Plan [...] disorder , severe, in sustained remission, dependence ([facility]) 06/19/2019 Assessment & Plan (12/17/2022 4:47 PM CDT): He is in group therapy and is working hard to avoid amphetamines but still snorts occasionally. Assessment & Plan (11/26/2022 4:14 PM CDT): Last use 10 days ago. Ongoing PI and voices. Assessment & Plan (11/01/2022 7:53 PM ZIPPER MEASURER): Admits that he used about a week [...] available. Assessment & Plan (08/30/2022 8:34 PM ZIPPER MEASURER): Relapse - no use reported since Jun. Cont cessation. Needs drug tx. Referred. Assessment & Plan (09/11/2021 9:44 PM ZIPPER MEASURER): Continued cessation highly advised. Denies any use. Assessment & Plan (06/14/2021 4:01 PM CDT): Continued cessation as advised. Denies any use. Assessment & Plan (12/12/2020 5:05 PM CDT): Denies any use. Continued cessation highly advised. Assessment & Plan (10/10/2019 9:56 AM ZIPPER MEASURER): Chronic, stable. Denies any use of methamphetamine. [...] proceed with full, informed consent. Alcohol-induced insomnia ([facility]/HCC) 06/19/2019 Assessment & Plan (06/14/2021 4:01 PM [...] use. Assessment & Plan (09/16/2022 1:32 PM ZIPPER MEASURER): Chronic and persistent use. Advised against using alcohol and drugs. Patient states that he is going to continue using them. He does not have much interest to quit at this time. Assessment & Plan (08/07/2021 3:34 PM ZIPPER MEASURER): He is still drinking heavily every day. Other mood problems seem to be better. We encouraged him to follow-up with psychiatry and seek assistance through other agencies such as alcoholics anonymous. We will check some follow-up labs for toxic effects of heavy daily alcohol use. Assessment & Plan (10/10/2019 10:00 AM ZIPPER MEASURER): Chronic issue, treatment recommended, does not wish [...] monitor. Assessment & Plan (09/11/2021 9:44 PM ZIPPER MEASURER): Chronic condition, persistent but stable symptoms. Medication [...] interval. Assessment & Plan (10/10/2019 9:57 AM ZIPPER MEASURER): Chronic, persistent, difficult to tell whether not [...] 03/11/2014 Assessment & Plan (09/05/2019 4:23 PM ZIPPER MEASURER): Due to gastritis, IVF, supportive care. Clears only for now, improving and will advance diet as tolerated Tobacco use disorder 02/23/2013 Assessment & Plan (12/14/2022 3:12 PM CDT): He is no longer smoking cigarettes but is vaping. We recommended a pneumococcal vaccination. We can not give him immunizations here due to his insurance. Assessment & Plan (08/07/2021 3:28 PM ZIPPER MEASURER): Smokes cigarettes, about a pack a day. He has no motivation to quit. His father has emphysema and he has relatives who had lung cancer. We discussed the importance of cutting back and quitting now while he is still young. 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 He gets up every day. He enjoys his work. 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 It sounds like there are still some [...] Follow with patient who the patient's outpatient Lifestyle Coordinator is Hypokalemia 09/05/2019 10/07/2023 Overview (08/05/2021): See hospital record. Assessment & Plan (09/05/2019 4:23 PM ZIPPER MEASURER): replete Intractable vomiting 09/04/2019 023 Overview (12/30/2022): Cyclic vomiting syndrome vs gastritis per evaluation in 2019. Assessment & Plan (09/04/2019 6:03 PM ZIPPER MEASURER): Cyclic vomiting syndrome vs gastritis. Supportive care GI bleed 09/04/2019 12/30/2022 Overview (12/30/2022): See hospital records. Placed on PPI. Assessment & Plan (09/04/2019 6:08 PM ZIPPER MEASURER): Monitor CBC. Protonix bid Sprain of ligament [...] Yrs) PURPLE 05/27/2021,05/06/2021 Tdap 11/19/2020,03/14/2012 Varicella 04/15/2009,06/17/2002 Surgical History Surgery Date Site/Laterality Comments TENDON REPAIR 09/25/2018 Left Old injury from baseball, left ankle tendon repair at [facility]. Medical History Medical History Date Comments Obesity Hypokalemia 09/05/2019 See hospital rec ord. Diarrhea 03/11/2014 Details lacking. Sprain of ligament of tarsometatarsal joint 03/15/2014 Details lacking. Close exposure to COVID-19 virus 04/25/2021 Test negative but lost sense of taste and smell. His entire family was sick with test-confirmed Covid. Chickenpox Alcohol dependence, daily use (HCC) 01/30/2019 Intractable vomiting 09/04/2019 Cyclic vomi ting syndrome vs gastritis per evaluation in 2019. Hyperemesis 02/10/2020 Possibly due to cannabis use, pneumomediastinum on OSH CT per notes from 02/11/2020. GI bleed 09/04/2019 See hospital rec ords. Probable alcoholic gastirits. Placed on PPI. Family History Medical History Relation Name Comments Hypertension Father No Known Problems Mother Arthritis Other 1 Family history of Arthritis; Hypertension Other 2 Family history of Hypertension; Alcohol abuse Paternal Grandmother Hypertension Paternal Grandmother Hyperte nsion; Relation Name Status Comments Father Alive Mother Alive Other 1 Other 2 Paternal Grandmother Social History Tobacco Use Types Packs/Day Years [...] on file Legal Sex Male 3:19 AM ZIPPER MEASURER Gender Identity Not on file Sexual Orientation Not on file Obstetrics History Last Filed Vital Signs Vital Sign Reading [...] 02/24/2024 6:43 PM CDT Plan of Treatment Health Maintenance Due Date Last Done Comments Hepatitis C Screening 1997 Pneumococcal vaccine <65 (1 of 2 - PCV) 10/25/2003 Depression Screening 12/15/2023 12/14/2022, 08/07/2021, 08/27/2019, Additional history exists Regular Well Visit/Exam 18-64 12/15/2023 12/14/2022, 08/07/2021 Covid-19 Vaccine (3 - 2023-2 5 season) 2024 05/27/2021, 05/06/2021 DTaP/Tdap/Td Vaccine (9 - Td or Tdap) 11/19/2030 11/19/2020, 03/14/2012, 04/15/2009, Additional history exists HPV Vaccines Completed 03/01/2015, 11/2014, 10/22/2013 Influenza Vaccine Discontinued Insurance [facility] [employer] [facility] [employer] [facility] [place] [address] Advance Directives For more information, please contact: [phone] * Full Code (Latest Code Status on [...] 4:14 AM 08/28/2019 7:00 AM Care Teams Custom Stock Maker Relationship Specialty Start Date End Date Milton Bland MD [address] [place] [id number] PCP - General Internal Medicine 08/07/21 Marck Gee MD Surgeon Thoracic Surgery 02/11/20 [place] [address] [address] [place] [address] Consulting Physician Plastic Surgery 12/21/22
--- OUTSIDE RECORDS SUMMARY | 2024-09-26 19:37 | XMS_ITS | Clinical Summary ---
Author Organization [facility] Address [address] [place] [address] Care Team Providers Care Human Resources Talent Manager Name Role Phone Unavailable Primary Care Provider Unavailabl e Source Comments [facility],non-owned Affiliates and Associated Physician Practices is amultiple site organization consisting of ambulatory clinics and hospital sitesin [place], [place]. This disclosure is being madepursuant to the Care Everywhere program and may not contain all information available regarding this patient. Last updated 18.[facility] Allergies No known active allergies Medications * [...] 03/01/2018 1:38 PM CDT Plan of Treatment Health Maintenance Due Date Last Done Comments HIV SCREENING 2012 HPV VACCINE (1 - Male 3-dose series) 2012 DTAP/TDAP/TD VACCINES (1 - Tdap) 2016 HEPATITIS B VACCINE (1 of 3 - 19+ 3-dose series) 2016 PNEUMOCOCCAL VACCINE (1 of 2 - PCV) 2016 COVID-19 VACCINE (1 - 2023-2 5 season) 2024 INFLUENZA VACCINE (#1) 2024 DEPRESSION SCREENING 08/26/2024 ZOSTER VACCINE (1 of 2) 10/25/2047 HEPATITIS C SCREENING Completed 03/01/2018 HIB VACCINE Aged Out No longer eligi ble based on patient's age to complete this topic MENINGOCOCCAL (Group B) VACCINE Aged Out No longer eligible based on patient's age to complete this topic MENINGOCOCCAL VACCINE Aged Out No sahil amari eligible based on patient's age to complete this topic Procedures Procedure Name Priority Date/Time Associated Diagnosis Comments HEPATITIS SCREEN ACUTE Add on 03/01/2018 2:23 PM CDT from Last 3 Months or Most Recently Relevant to Health Maintenance Results * HEPATITIS SCREEN ACUTE (03/01/2018 2:23 PM CDT) HAV Antibody IgM Non Reactive Non Reactive 03/02/2018 6:46 PM CDT [facility] HBsAg Non Reactive Non Reactive 03/02/2018 6:46 PM CDT [facility] HBc Antibody IgM Non Reactive Non Reactive 03/02/2018 6:46 PM CDT [facility] HCV Antibody Screen Non Reactive Non Reactive 03/02/2018 6:46 PM CDT [facility] HCV S/C Ratio 0.08 0.00 - 0.79 03/02/2018 6:46 PM CDT [facility] Comment: Bgieuw-zi-kplilt ratio (S/CO) <0.80:?? Non Reactive Blood BLOOD SPECIMEN / Unknown Venipuncture / Unknown 03/01/2018 2:23 PM CDT 03/01/2018 2:50 PM CDT Narrative [facility] - 03/02/2018 6:46 PM CDT Non Reactive - Antibodies to Hepatitis C virus (HCV) were not detected, result does not exclude early acute HCV infection. Non Reactive - Antibodies to Hepatitis C virus (HCV) were not detected, result does not exclude early acute HCV infection. Evens Angel MD LAB - CHEMISTRY CARLOS [place]on Organization Address City/State/ZIP Co de Phone Number [facility] [address] [place] [address] from Last 3 Months or Most Recently Relevant to Health Maintenance
--- NOTE | 2024-09-26 19:41 | ECG_ITS ---
Test Date: 2024-09-26 19:44:51 Measurements Intervals Coram Rate: 112 P: 46 NH: 168 QRS: 47 QRSD: 98 T: 33 QT: 308 QTc: 422 Interpretive Statements SINUS TACHYCARDIA INCOMPLETE RIGHT BUNDLE BRANCH BLOCK BORDERLINE T WAVE ABNORMALITY- ANTERIOR LEADS BASELINE ARTIFACT- I, III, AVR, AVL, V1-V2 ABNORMAL ECG No previous ECG available for comparison Electronically Signed On 09-27-2024 08:09:58 REVENUE TAX SPECIALIST by Monty Johnson D.O.
--- OUTSIDE RECORDS SUMMARY | 2024-09-26 20:58 | XMS_ITS | Referral Summary ---
Author Organization [facility] Address [address] [place] [address] Care Team Providers Care Preschool Education Director Name Role Phone Unavailable Primary Care Provider Unavailabl e Source Comments [facility],non-owned Affiliates and Associated Physician Practices is amultiple site organization consisting of ambulatory clinics and hospital sitesin [place], [place], [place] and [place]. This disclosure is being madepursuant to the Care Everywhere program and may not contain all information available regarding this patient. Last updated 18.[facility] Allergies No known active allergies Medications * [...] Reactive Non Reactive 03/02/2018 6:46 PM CDT [facility] HBsAg Non Reactive Non Reactive 03/02/2018 6:46 PM CDT [facility] HBc Antibody IgM Non Reactive Non Reactive 03/02/2018 6:46 PM CDT [facility] HCV Antibody Screen Non Reactive Non Reactive 03/02/2018 6:46 PM CDT [facility] HCV S/C Ratio 0.08 0.00 - 0.79 03/02/2018 6:46 PM CDT [facility] Comment: Edvrgr-mh-omsenj ratio (S/CO) <0.80:?? Non Reactive Blood BLOOD SPECIMEN / Unknown Venipuncture / Unknown 03/01/2018 2:23 PM CDT 03/01/2018 2:50 PM CDT Narrative [facility] - 03/02/2018 6:46 PM CDT Non Reactive - Antibodies to Hepatitis C virus (HCV) were not detected, result does not exclude early acute HCV infection. Non Reactive - Antibodies to Hepatitis C virus (HCV) were not detected, result does not exclude early acute HCV infection. Evens Angel MD LAB - CHEMISTRY CARLOS [place] [facility] [address] [place] [address] from Last 3 Months or Most Recently Relevant to Health Maintenance
--- OUTSIDE RECORDS SUMMARY | 2024-09-26 20:58 | XMS_ITS | Referral Summary ---
Author Organization [facility] [address] [facility] lt Address [address] [place] [address] Care Team Providers Care International Project Engineer Name Role Phone Marck Gee MD Unavailable Milton Bland MD Primary Care Provider [phone] Victoria Tran MD Unavailable Allergies No known active allergies Medications albuterol [...] 5th finger, seen in Urgent Care and [facility] ER. Assessment & Plan (12/17/2022 4:44 PM CDT): The right fifth finger cellulitis persists. It centers over the dorsal fifth PIP joint where the wound remains open and gaping with exposure of subcutaneous fat. He did go back to work and was swinging a hammer which is probably not the best thing for this condition. He will ask for pulmonary fellow duty. There is no definite tendon or [...] planned. Assessment & Plan (09/16/2022 1:32 PM FLOOR SERVICE WORKER SPRING): Subacute, interval improvement with initiation of Invega [...] monitor. Assessment & Plan (08/30/2022 8:31 PM FLOOR SERVICE WORKER SPRING): Acute on chronic. Denies SI HI Start Invega - titrate up for effect. 2 wk f/u - plan peter MYERS if eff. 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 If he must kneel, he should use knee pads. A trial of nonsteroidals might be appropriate. ADHD (attention deficit hype ractivity disorder), combined type 01/04/2020 Assessment & Plan (11/01/2022 7:51 PM FLOOR SERVICE WORKER SPRING): Discontinue Adderall since has relapsed again. Assessment & Plan (08/30/2022 8:33 PM FLOOR SERVICE WORKER SPRING): Chronic, persistent symptoms of inattention, distractibility, inability [...] discussed. Assessment & Plan (09/11/2021 9:44 PM FLOOR SERVICE WORKER SPRING): Chronic, persistent symptoms of inattention, distractibility, inability [...] freq. Assessment & Plan (11/01/2022 7:52 PM FLOOR SERVICE WORKER SPRING): Strongly encouraged cessation. Not ready to quit. Referred for substance use treatment. Ambivalent about treatment. Assessment & Plan (09/16/2022 1:32 PM FLOOR SERVICE WORKER SPRING): Chronic, persistent use. Likely contributing to psychosis. Not ready or willing to quit at this time. Encouraged substance use treatment. Declined. Assessment & Plan (08/30/2022 8:34 PM FLOOR SERVICE WORKER SPRING): Not using. Strongly cautioned - no use. Agreed. Assessment & Plan (06/03/2022 12:23 PM CDT): Recommend decreasing overall use. Assessment & Plan (08/07/2021 3:32 PM FLOOR SERVICE WORKER SPRING): He smokes a little bit every day which helps him calm down after a day of work. Assessment & Plan (06/14/2021 3:59 PM CDT): Reduce overall use. Assessment & Plan (10/10/2019 9:55 AM FLOOR SERVICE WORKER SPRING): Chronic, persistent, does not see as a [...] labs Assessment & Plan (09/05/2019 4:23 PM FLOOR SERVICE WORKER SPRING): Due to intractable vomiting, improving, cont to monitor Cannabis abuse, daily use 09/01/2019 Bipolar and related disorder ([facility]/HCC) 9 Assessment & Plan (06/03/2022 12:26 [...] interval. Assessment & Plan (10/10/2019 9:59 AM FLOOR SERVICE WORKER SPRING): Chronic, persistent, admixed with substance use issues. [...] consent. Assessment & Plan (09/04/2019 6:02 PM FLOOR SERVICE WORKER SPRING): [facility] home meds Assessment & Plan (06/19/2019 2:56 [...] disorder , severe, in sustained remission, dependence ([facility]) 06/19/2019 Assessment & Plan (12/17/2022 4:47 PM CDT): He is in group therapy and is working hard to avoid amphetamines but still snorts occasionally. Assessment & Plan (11/26/2022 4:14 PM CDT): Last use 10 days ago. Ongoing PI and voices. Assessment & Plan (11/01/2022 7:53 PM FLOOR SERVICE WORKER SPRING): Admits that he used about a week [...] available. Assessment & Plan (08/30/2022 8:34 PM FLOOR SERVICE WORKER SPRING): Relapse - no use reported since Jun. Cont cessation. Needs drug tx. Referred. Assessment & Plan (09/11/2021 9:44 PM FLOOR SERVICE WORKER SPRING): Continued cessation highly advised. Denies any use. Assessment & Plan (06/14/2021 4:01 PM CDT): Continued cessation as advised. Denies any use. Assessment & Plan (12/12/2020 5:05 PM CDT): Denies any use. Continued cessation highly advised. Assessment & Plan (10/10/2019 9:56 AM FLOOR SERVICE WORKER SPRING): Chronic, stable. Denies any use of methamphetamine. [...] proceed with full, informed consent. 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 Assessment & Plan (09/16/2022 1:32 PM FLOOR SERVICE WORKER SPRING): Chronic and persistent use. Advised against using alcohol and drugs. Patient states that he is going to continue using them. He does not have much interest to quit at this time. Assessment & Plan (08/07/2021 3:34 PM FLOOR SERVICE WORKER SPRING): He is still drinking heavily every day. Other mood problems seem to be better. We encouraged him to follow-up with psychiatry and seek assistance through other agencies such as alcoholics anonymous. We will check some follow-up labs for toxic effects of heavy daily alcohol use. Assessment & Plan (10/10/2019 10:00 AM FLOOR SERVICE WORKER SPRING): Chronic issue, treatment recommended, does not wish [...] monitor. Assessment & Plan (09/11/2021 9:44 PM FLOOR SERVICE WORKER SPRING): Chronic condition, persistent but stable symptoms. Medication [...] interval. Assessment & Plan (10/10/2019 9:57 AM FLOOR SERVICE WORKER SPRING): Chronic, persistent, difficult to tell whether not [...] 03/11/2014 Assessment & Plan (09/05/2019 4:23 PM FLOOR SERVICE WORKER SPRING): Due to gastritis, IVF, supportive care. Clears only for now, improving and will advance diet as tolerated Tobacco use disorder 02/23/2013 Assessment & Plan (12/14/2022 3:12 PM CDT): He is no longer smoking cigarettes but is vaping. We recommended a pneumococcal vaccination. We can not give him immunizations here due to his insurance. Assessment & Plan (08/07/2021 3:28 PM FLOOR SERVICE WORKER SPRING): Smokes cigarettes, about a pack a day. He has no motivation to quit. His father has emphysema and he has relatives who had lung cancer. We discussed the importance of cutting back and quitting now while he is still young. 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 He gets up every day. He enjoys his work. 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 It sounds like there are still [...] Follow with patient who the patient's outpatient Forest Resources Professor is Hypokalemia 09/05/2019 10/07/2023 Overview (08/05/2021): See hospital record. Assessment & Plan (09/05/2019 4:23 PM FLOOR SERVICE WORKER SPRING): replete Intractable vomiting 09/04/2019 023 Overview (12/30/2022): Cyclic vomiting syndrome vs gastritis per evaluation in 2019. Assessment & Plan (09/04/2019 6:03 PM FLOOR SERVICE WORKER SPRING): Cyclic vomiting syndrome vs gastritis. Supportive care GI bleed 09/04/2019 12/30/2022 Overview (12/30/2022): See hospital records. Placed on PPI. Assessment & Plan (09/04/2019 6:08 PM FLOOR SERVICE WORKER SPRING): Monitor CBC. Protonix bid Sprain of ligament [...] on file Legal Sex Male 3:19 AM FLOOR SERVICE WORKER SPRING Gender Identity Not on file Sexual Orientation [...] Plan of Treatment Not on file Insurance [facility] CHO[facility] PL[facility] Advance Directives For more information, please contact: [phone] * Full Code (Latest Code Status on [...] 4:14 AM 08/28/2019 7:00 AM Care Teams International Project Engineer Relationship Specialty Start Date End Date Milton Bland MD [address] [place] [id number] PCP - General Internal Medicine 08/07/21 Marck Gee MD Surgeon Thoracic Surgery 02/11/20 [place] [id number] [address] [place] [address] Consulting Physician Plastic Surgery 12/21/22
--- OUTSIDE RECORDS SUMMARY | 2024-09-26 20:58 | XMS_ITS | Patient Health Summary ---
Author Organization [facility] Address [address] [place] [address] Care Team Providers Care Slipper Maker Name Role Phone Unavailable Primary Care Provider Unavailabl e Note from [facility],non-owned Affiliates and Associated Physician Practices is amultiple site organization consisting of ambulatory clinics and hospital sitesin [place], [place], [place] and [place]. This disclosure is being madepursuant to the Care Everywhere program and may not contain all information available regarding this patient. Last updated 18.[facility] Allergies No known active allergies Medications * [...] AG RAPID PNL (03/01/2018 2:23 PM CDT) [facility] HIV1/2 Ab + P24 Ag Rapid Non Reactive Non Reactive 03/01/2018 3:24 PM CDT [facility] Blood BLOOD SPECIMEN / Unknown Venipuncture / Unknown 03/01/2018 2:23 PM CDT 03/01/2018 2:50 PM CDT Narrative [facility] - 03/01/2018 3:24 PM CDT No Laboratory evidence of HIV infection. Evens Angel MD LAB - SEROLOGY ORDER CAITLIN [facility] [address] [place] [address] * URINALYSIS REFLEX MICROSCOPIC REFLEX CULTURE (03/01/2018 2:23 PM CDT) Pathologist [facility] Color UA Yellow Straw, Yellow 03/01/2018 2:36 PM CDT [facility] Clarity UA Clear Clear 03/01/2018 2:36 PM CDT [facility] Glucose UA Negative Negative 03/01/2018 2:36 PM CDT [facility] Bilirubin UA Negative Negative 03/01/2018 2:36 PM CDT [facility] Ketone UA Negative Negative 03/01/2018 2:36 PM CDT [facility] Specific Castile UA 1.016 1.005 - 1.030 03/01/2018 2:36 PM CDT [facility] Blood UA Negative Negative 03/01/2018 2:36 PM CDT [facility] pH UA 8.0 5.0 - 8.0 pH 03/01/2018 2:36 PM CDT [facility] Protein UA Negative Negative 03/01/2018 2:36 PM CDT [facility] Urobilinogen UA Negative Negative mg/dL 03/01/2018 2:36 PM CDT [facility] Nitrite UA Negative Negative 03/01/2018 2:36 PM CDT [facility] Leukocyte UA Negative Negative 03/01/2018 2:36 PM CDT [facility] Urine Microscopy Urine microscopy not indicated 03/01/2018 2:36 PM CDT [facility] Reflex Status Culture not indicated 03/01/2018 2:36 PM CDT [facility] Urine URINE SPECIMEN OBTAINED BY CLEAN CATCH PROCEDURE / Unknown Collection / Unknown 03/01/2018 2:23 PM CDT 03/01/2018 2:27 PM CDT [facility] - 03/01/2018 2:36 PM CDT Evens Angel MD LAB - URINALYSIS ORD ERABLES Performing Organization Address City/State/[facility] Co de Phone Number [facility] [address] [place] [phone] * CBC W AUTO DIFFERENTIAL (03/01/2018 2:23 PM CDT) WBC 6.8 4.4 - 10.7 x10E9/L 03/01/2018 2:33 PM CDT [facility] WBC Corrected x10E9/L 03/01/2018 2:33 PM CDT [facility] RBC 5.32 3.80 - 5.40 x10E12/L 03/01/2018 2:33 PM CDT [facility] Hemoglobin 15.7 12.0 - 17.6 gm/dL 03/01/2018 2:33 PM CDT [facility] Hematocrit 47.1 35.2 - 51.7 % 03/01/2018 2:33 PM CDT [facility] MCV 88.5 80.7 - 98.3 fl 03/01/2018 2:33 PM CDT [facility] MCH 29.5 26.7 - 34.0 pg 03/01/2018 2:33 PM CDT [facility] MCHC 33.3 30.8 - 35.9 gm/dL 03/01/2018 2:33 PM CDT [facility] Platelet Count 284 153 - 416 x10E9/L 03/01/2018 2:33 PM CDT [facility] RDW-CV 13.2 12.1 - 14.9 % 03/01/2018 2:33 PM CDT [facility] MPV 10.5 9.4 - 12.9 fl 03/01/2018 2:33 PM CDT [facility] Neutrophils % 58.7 44.0 - 73.0 % 03/01/2018 2:33 PM CDT [facility] Lymphocytes % 29.4 20.0 - 43.0 % 03/01/2018 2:33 PM CDT [facility] Monocytes % 8.3 5.0 - 13.0 % 03/01/2018 2:33 PM CDT [facility] Eosinophils % 2.6 0.0 - 6.0 % 03/01/2018 2:33 PM CDT [facility] Basophils % 0.7 0.0 - 2.0 % 03/01/2018 2:33 PM CDT [facility] Immature Granulocytes 0.3 0 - 1 % 03/01/2018 2:33 PM CDT [facility] Neutrophil Absolute 4.01 2.01 - 7.14 x10E9/L 03/01/2018 2:33 PM CDT [facility] Lymphocytes Absolute 2.01 1.07 - 3.94 x10E9/L 03/01/2018 2:33 PM CDT [facility] Monocytes Absolute 0.57 0.26 - 1.07 x10E9/L 03/01/2018 2:33 PM CDT [facility] Eosinophils Absolute 0.18 0 - 0.47 x10E9/L 03/01/2018 2:33 PM CDT [facility] Basophils Absolute 0.05 0 - 0.08 x10E9/L 03/01/2018 2:33 PM CDT [facility] Immature Granulocytes Absolute 0.02 0.00 - 0.06 x10E9/L 03/01/2018 2:33 PM CDT [facility] nRBC Auto 0 /100 WBC 03/01/2018 2:33 PM CDT [facility] Blood BLOOD SPECIMEN / Unknown Venipuncture / Unknown 03/01/2018 2:23 PM CDT 03/01/2018 2:27 PM CDT Evens Angel MD LAB - HEMATOLOGY ORD ERABLES [facility] [address] [place] [address] * (ABNORMAL) COMPREHENSIVE METABOLIC PANEL (03/01/2018 2:23 PM CDT) Glucose 83 74 - 106 mg/dL 03/01/2018 2:49 PM CDT [facility] Sodium 140 136 - 145 mmol/L 03/01/2018 2:49 PM CDT [facility] Potassium 4.5 3.5 - 5.1 mmol/L 03/01/2018 2:49 PM CDT [facility] Chloride 104 98 - 107 mmol/L 03/01/2018 2:49 PM CDT [facility] CO2 32(H) 22 - 31 mmol/L 03/01/2018 2:49 PM CDT [facility] Calcium 8.7 8.5 - 10.1 mg/dL 03/01/2018 2:49 PM CDT [facility] Anion Gap 4(L) 8 - 16 mmol/L 03/01/2018 2:49 PM CDT [facility] BUN 16 7 - 21 mg/dL 03/01/2018 2:49 PM CDT [facility] Creatinine 0.96 0.50 - 1.30 mg/dL 03/01/2018 2:49 PM CDT [facility] Alkaline Phosphatase 78 38 - 126 U/L 03/01/2018 2:49 PM CDT [facility] ALT 27 13 - 61 U/L 03/01/2018 2:49 PM CDT [facility] AST 12 5 - 40 U/L 03/01/2018 2:49 PM CDT [facility] Protein Total 6.8 6.4 - 8.2 gm/dL 03/01/2018 2:49 PM CDT [facility] Albumin 3.9 3.4 - 5.0 gm/dL 03/01/2018 2:49 PM CDT [facility] Bilirubin Total 0.9 0.2 - 1.0 mg/dL 03/01/2018 2:49 PM CDT [facility] eGFR by MDRD >60 >60 mL/min/1.7 3m2 03/01/2018 2:49 PM CDT [facility] eGFR by MDRD >60 >60 mL/min/1.7 3m2 03/01/2018 2:49 PM CDT [facility] Blood BLOOD SPECIMEN / Unknown Venipuncture / Unknown 03/01/2018 2:23 PM CDT 03/01/2018 2:27 PM CDT Evens Angel MD LAB - CHEMISTRY [place] [facility] [place]) Organization Address City/State/ZIP Co de Phone Number [facility] [address] [address] * DRUG SCREEN TOX URINE PANEL (03/01/2018 2:23 PM CDT) Pathologist [facility] Amphetamines Screen Urine Not Detected Not Detected 03/01/2018 3:06 PM CDT [facility] Barbiturates Screen Urine Not Detected Not Detected 03/01/2018 3:06 PM CDT [facility] Benzodiazepines Screen Urine Not Detected Not Detected 03/01/2018 3:06 PM CDT [facility] Cannabinoids Screen Urine Not Detected Not Detected 03/01/2018 3:06 PM CDT [facility] Cocaine Screen Urine Not Detected Not Detected 03/01/2018 3:06 PM CDT [facility] Methadone Screen Urine Not Detected Not Detected 03/01/2018 3:06 PM CDT [facility] Opiate Screen Urine Not Detected Not Detected 03/01/2018 3:06 PM CDT [facility] Phencyclidine Screen Urine Not Detected Not Detected 03/01/2018 3:06 PM CDT [facility] Urine URINE / Unknown Collection / Unknown 03/01/2018 2:23 PM CDT 03/01/2018 2:27 PM CDT Narrative [facility] - 03/01/2018 3:06 PM CDT This [...] URINE CHEMISTR Y ORDERABLES Performing Organization Address [facility] de Phone Number [facility] [phone] [place] [address] * MAGNESIUM BLOOD (03/01/2018 2:23 PM CDT) [facility] Magnesium 2.1 1.6 - 2.6 mg/dL 03/01/2018 2:49 PM CDT [facility] Blood BLOOD SPECIMEN / Unknown Venipuncture / Unknown 03/01/2018 2:23 PM CDT 03/01/2018 2:27 PM CDT Evens Angel MD LAB - CHEMISTRY [place] Performing Organization Address [facility] de Phone Number [facility] [address] [place] [address] * TSH (03/01/2018 2:23 PM CDT) [facility] TSH 0.467 0.358 - 3.740 uIU/mL 03/01/2018 2:57 PM CDT [facility] Blood BLOOD SPECIMEN / Unknown Venipuncture / Unknown 03/01/2018 2:23 PM CDT 03/01/2018 2:27 PM CDT Evens Angel MD LAB - CHEMISTRY [place] Performing Organization Address [facility] de Phone Number [facility] [id number] [place] [address] * HEPATITIS SCREEN ACUTE (03/01/2018 2:23 PM CDT) [facility] HAV Antibody IgM Non Reactive Non Reactive 03/02/2018 6:46 PM CDT [facility] HBsAg Non Reactive Non Reactive 03/02/2018 6:46 PM CDT [facility] HBc Antibody IgM Non Reactive Non Reactive 03/02/2018 6:46 PM CDT [facility] HCV Antibody Screen Non Reactive Non Reactive 03/02/2018 6:46 PM CDT [facility] HCV S/C Ratio 0.08 0.00 - 0.79 03/02/2018 6:46 PM CDT [facility] Comment: Utiofu-pd-uajcmf ratio (S/CO) <0.80:?? Non Reactive Blood BLOOD SPECIMEN / Unknown Venipuncture / Unknown 03/01/2018 2:23 PM CDT 03/01/2018 2:50 PM CDT [facility] - 03/02/2018 6:46 PM CDT Non Reactive - Antibodies to Hepatitis C virus (HCV) were not detected, result does not exclude early acute HCV infection. Non Reactive - Antibodies to Hepatitis C virus (HCV) were not detected, result does not exclude early acute HCV infection. Evens Angel MD LAB - CHEMISTRY [place] [facility] ([place], [place]) Organization Address City/State/ZIP Co de Phone Number [facility] [address] [place] [address]
--- OUTSIDE RECORDS SUMMARY | 2024-09-26 20:58 | XMS_ITS | Clinical Summary ---
Author Organization [facility] Address [address] [place] [address] Care Team Providers Care Molecular Physicist Name Role Phone Unavailable Primary Care Provider Unavailabl e Source Comments [facility],non-owned Affiliates and Associated Physician Practices is amultiple site organization consisting of ambulatory clinics and hospital sitesin [place], [place], [place] and [place]. This disclosure is being madepursuant to the Care Everywhere program and may not contain all information available regarding this patient. Last updated 18.[facility] Allergies No known active allergies Medications * [...] Reactive Non Reactive 03/02/2018 6:46 PM CDT [facility] HBsAg Non Reactive Non Reactive 03/02/2018 6:46 PM CDT [facility] HBc Antibody IgM Non Reactive Non Reactive 03/02/2018 6:46 PM CDT [facility] HCV Antibody Screen Non Reactive Non Reactive 03/02/2018 6:46 PM CDT [facility] HCV S/C Ratio 0.08 0.00 - 0.79 03/02/2018 6:46 PM CDT [facility] Comment: Irfncj-yr-fqykid ratio (S/CO) <0.80:?? Non Reactive Blood BLOOD SPECIMEN / Unknown Venipuncture / Unknown 03/01/2018 2:23 PM CDT 03/01/2018 2:50 PM CDT Narrative [facility] - 03/02/2018 6:46 PM CDT Non Reactive - Antibodies to Hepatitis C virus (HCV) were not detected, result does not exclude early acute HCV infection. Non Reactive - Antibodies to Hepatitis C virus (HCV) were not detected, result does not exclude early acute HCV infection. Evens Angel MD LAB - CHEMISTRY CARLOS [place] Organization Address City/State/ZIP Co de Phone Number [facility] [address] [place] [address] from Last 3 Months or Most Recently Relevant to Health Maintenance
--- OUTSIDE RECORDS SUMMARY | 2024-09-26 20:58 | XMS_ITS | Clinical Summary ---
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 Assessment & Plan (12/17/2022 4:44 PM CDT): The right fifth finger cellulitis persists. It centers over the dorsal fifth PIP joint where the wound remains open and gaping with exposure of subcutaneous fat. He did go back to work and was swinging a hammer which is probably not the best thing for this condition. 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 There is no definite tendon or [...] planned. Assessment & Plan (09/16/2022 1:32 PM CONSUMER LOAN PROCESSOR): Subacute, interval improvement with initiation of Invega [...] monitor. Assessment & Plan (08/30/2022 8:31 PM CONSUMER LOAN PROCESSOR): Acute on chronic. Denies SI HI Start Invega - titrate up for effect. 2 wk f/u - plan peter MYERS if eff. 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 If he must kneel, he should use knee pads. A trial of nonsteroidals might be appropriate. ADHD (attention deficit hype ractivity disorder), combined type 01/04/2020 Assessment & Plan (11/01/2022 7:51 PM CONSUMER LOAN PROCESSOR): Discontinue Adderall since has relapsed again. Assessment & Plan (08/30/2022 8:33 PM CONSUMER LOAN PROCESSOR): Chronic, persistent symptoms of inattention, distractibility, inability [...] discussed. Assessment & Plan (09/11/2021 9:44 PM CONSUMER LOAN PROCESSOR): Chronic, persistent symptoms of inattention, distractibility, inability [...] freq. Assessment & Plan (11/01/2022 7:52 PM CONSUMER LOAN PROCESSOR): Strongly encouraged cessation. Not ready to quit. Referred for substance use treatment. Ambivalent about treatment. Assessment & Plan (09/16/2022 1:32 PM CONSUMER LOAN PROCESSOR): Chronic, persistent use. Likely contributing to psychosis. Not ready or willing to quit at this time. Encouraged substance use treatment. Declined. Assessment & Plan (08/30/2022 8:34 PM CONSUMER LOAN PROCESSOR): Not using. Strongly cautioned - no use. Agreed. Assessment & Plan (06/03/2022 12:23 PM CDT): Recommend decreasing overall use. Assessment & Plan (08/07/2021 3:32 PM CONSUMER LOAN PROCESSOR): He smokes a little bit every day which helps him calm down after a day of work. Assessment & Plan (06/14/2021 3:59 PM CDT): Reduce overall use. Assessment & Plan (10/10/2019 9:55 AM CONSUMER LOAN PROCESSOR): Chronic, persistent, does not see as a [...] labs Assessment & Plan (09/05/2019 4:23 PM CONSUMER LOAN PROCESSOR): Due to intractable vomiting, improving, cont to monitor Cannabis abuse, daily use 09/01/2019 Bipolar and related disorder ([facility]/HCC) 9 Assessment & Plan (06/03/2022 12:26 PM [...] interval. Assessment & Plan (10/10/2019 9:59 AM CONSUMER LOAN PROCESSOR): Chronic, persistent, admixed with substance use issues. [...] consent. Assessment & Plan (09/04/2019 6:02 PM CONSUMER LOAN PROCESSOR): [facility] home meds Assessment & Plan [...] disorder , severe, in sustained remission, dependence ([facility]) 06/19/2019 Assessment & Plan (12/17/2022 4:47 PM CDT): He is in group therapy and is working hard to avoid amphetamines but still snorts occasionally. Assessment & Plan (11/26/2022 4:14 PM CDT): Last use 10 days ago. Ongoing PI and voices. Assessment & Plan (11/01/2022 7:53 PM CONSUMER LOAN PROCESSOR): Admits that he used about a week [...] available. Assessment & Plan (08/30/2022 8:34 PM CONSUMER LOAN PROCESSOR): Relapse - no use reported since Jun. Cont cessation. Needs drug tx. Referred. Assessment & Plan (09/11/2021 9:44 PM CONSUMER LOAN PROCESSOR): Continued cessation highly advised. Denies any use. Assessment & Plan (06/14/2021 4:01 PM CDT): Continued cessation as advised. Denies any use. Assessment & Plan (12/12/2020 5:05 PM CDT): Denies any use. Continued cessation highly advised. Assessment & Plan (10/10/2019 9:56 AM CONSUMER LOAN PROCESSOR): Chronic, stable. Denies any use of methamphetamine. [...] proceed with full, informed consent. Alcohol-induced insomnia ([facility]/HCC) 06/19/2019 Assessment & Plan (06/14/2021 4:01 PM [...] use. Assessment & Plan (09/16/2022 1:32 PM CONSUMER LOAN PROCESSOR): Chronic and persistent use. Advised against using alcohol and drugs. Patient states that he is going to continue using them. He does not have much interest to quit at this time. Assessment & Plan (08/07/2021 3:34 PM CONSUMER LOAN PROCESSOR): He is still drinking heavily every day. Other mood problems seem to be better. We encouraged him to follow-up with psychiatry and seek assistance through other agencies such as [facility]. We will check some follow-up labs for toxic effects of heavy daily alcohol use. Assessment & Plan (10/10/2019 10:00 AM CONSUMER LOAN PROCESSOR): Chronic issue, treatment recommended, does not wish [...] monitor. Assessment & Plan (09/11/2021 9:44 PM CONSUMER LOAN PROCESSOR): Chronic condition, persistent but stable symptoms. Medication [...] interval. Assessment & Plan (10/10/2019 9:57 AM CONSUMER LOAN PROCESSOR): Chronic, persistent, difficult to tell whether not [...] 03/11/2014 Assessment & Plan (09/05/2019 4:23 PM CONSUMER LOAN PROCESSOR): Due to gastritis, IVF, supportive care. Clears only for now, improving and will advance diet as tolerated Tobacco use disorder 02/23/2013 Assessment & Plan (12/14/2022 3:12 PM CDT): He is no longer smoking cigarettes but is vaping. We recommended a pneumococcal vaccination. We can not give him immunizations here due to his insurance. Assessment & Plan (08/07/2021 3:28 PM CONSUMER LOAN PROCESSOR): Smokes cigarettes, about a pack a day. He has no motivation to quit. His father has emphysema and he has relatives who had lung cancer. We discussed the importance of cutting back and quitting now while he is still young. 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 He gets up every day. He enjoys his work. 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 It sounds like there are still some [...] Follow with patient who the patient's outpatient [facility] [place] is Hypokalemia 09/05/2019 10/07/2023 Overview (08/05/2021): See hospital record. Assessment & Plan (09/05/2019 4:23 PM CONSUMER LOAN PROCESSOR): replete Intractable vomiting 09/04/2019 023 Overview (12/30/2022): Cyclic vomiting syndrome vs gastritis per evaluation in 2019. Assessment & Plan (09/04/2019 6:03 PM CONSUMER LOAN PROCESSOR): Cyclic vomiting syndrome vs gastritis. Supportive care GI bleed 09/04/2019 12/30/2022 Overview (12/30/2022): See hospital records. Placed on PPI. Assessment & Plan (09/04/2019 6:08 PM CONSUMER LOAN PROCESSOR): Monitor CBC. Protonix bid Sprain of ligament [...] from baseball, left ankle tendon repair at [facility]. 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
--- OUTSIDE RECORDS SUMMARY | 2024-09-26 20:58 | XMS_ITS | Clinical Summary ---
Author Organization [facility] Address [address] [place] [address]. 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 HEP B CORE IGM NON-REACTI VE NON-REACT CARMELINA 05/01/2016 8:50 AM CDT [facility] Comment: IgM ANTI HBc NOT DETECTED. DOES NOT EXCLUDE THE POSSIBILITY OF EXPOSURE TO OR INFECTION WITH HBV. NO RETEST REQUIRED. HAV IGM NON-REACTI VE NON-REACT CARMELINA 05/01/2016 8:50 AM CDT [facility] Comment: IgM ANTI HAV NOT DETECTED. DOES NOT EXCLUDE THE POSSIBILITY OF EXPOSURE TO OR INFECTION WITH HAV. LEVELS OF IgM ANTI HAV MAY BE BELOW THE CUTOFF IN EARLY INFECTION. HEPATITIS C AB NON-REACTI VE NON-REACT CARMELINA 05/01/2016 8:50 AM CDT [facility] Comment: ANTIBODIES TO HCV NOT DETECTED. DOES NOT EXCLUDE THE POSSIBILITY OF EXPOSURE TO HCV. 04/30/2016 12:5 4 PM CDT 04/30/2016 12:55 PM CDT us Generic Conversion [facility] Final R esult [facility] [place] [address], [id number] from Last 3 Months or Most Recently Relevant to Health Maintenance
[2024-09-26 21:11] LABS: Basophils Percent Auto 0.5 % (0.2-1.2); Eosinophils Percent Auto 0.2 % (0-4.4); Hematocrit 44.2 % (42.0-52.0); Hemoglobin 14.5 g/dL (14.0-18.0); Immature Granulocyte Absolute 0.04 K/mm3 (0.00-0.031); Immature Granulocyte Percent A 0.7 % (0-0.5); Lymphocytes Absolute Auto 1.09 K/mm3 (0.9-3.2); Lymphocytes Percent Auto 18.4 % (18.3-44.2); Mean Corpuscular HGB Conc 32.8 g/dl (32-36); Mean Corpuscular Hemoglobin 28.1 pg (26-34); Mean Corpuscular Volume 85.7 fl (80-100); Mean Platelet Volume 10.1 fl (7.4-10.4); Monocytes Absolute Auto 0.6 K/mm3 (0.1-0.6); Monocytes Percent Auto 10.6 % (2.6-8.5); Neutrophils Absolute Auto 4.1 K/mm3 (1.3-6.7); Neutrophils Percent Auto 69.6 % (45.5-73.1); Platelet Count Result 227 k/mm3 (150-375); Red Blood Count 5.16 M/mm3 (4.6-6.20); Red Cell Distribution Width 14.6 % (11.5-14.5); White Blood Count 5.9 K/mm3 (4.5-10.0)
--- NOTE | 2024-09-26 21:19 | ED_ITS ---
HPI - URI/Sore Throat General Chief Complaint: Upper Respiratory Infection Stated Complaint: chest pain Time Seen by Provider: 09/26/24 20:36 Source: patient Mode of arrival: ambulatory Limitations: no limitations History of Present Illness HPI Narrative: This is a 28 year old male that presents to the ER for cold symptoms present since yesterday. Reports cough, congestion, headache, fevers, myalgias, chest pain. Related Data Home Medications ?Medication ?Instructions ?Recorded ?Confirmed ?Last Taken ?Type hydroxyzine pamoate 25 mg capsule 25 mg PO TID 12/12/22 12/12/22 Unknown History paliperidone palmitate 156 mg/mL 156 mg IM MONTHLY 12/12/22 12/12/22 Unknown History intramuscular syringe (Invega Sustenna) sertraline 100 mg tablet mg 09/26/24 Unknown History Allergies Allergy/AdvReac Type Severity Reaction Status Date / Time No Known Allergies Allergy Verified 09/26/24 19:35 Review of Systems 2 Review of Systems: CONSTITUTIONAL: Reports fever ENT: Reports congestion, sore throat CARDIOVASCULAR: Reports chest pain RESPIRATORY: Reports cough All systems reviewed & are unremarkable except as noted in HPI and below PMFSH Past Medical History Medical History (Updated 09/26/24 @ 22:06 by Ermelinda Rico PA-C) Alcohol use Drug-induced nausea and vomiting Coffee ground emesis Vomiting bile Hyperactive gag reflex Marijuana use Flat foot [pes planus] (acquired), left foot (09/25/18) Pain in left ankle and joints of left foot Posterior tibial tendinitis, left leg (09/25/18) Sprain of deltoid ligament of left ankle, sequela History of ETOH abuse Depression Anxiety GERD (gastroesophageal reflux disease) Surgical History Surgical History [facility] teeth extracted History of ankle surgery Family History Family History Father Vomiting Grandparent Diabetes mellitus DM II with Insulin dependence Social History Social History Smoking packs per day: 1 Smoking cigarettes per day: 20.0 Years smoked: 6 Smoking pack-years: 6.00 Smoking status: Current every day smoker Tobacco type: cigarettes Second hand tobacco smoke exposure: Yes Alcohol intake: current Drinks per week: 4 Substance use: current Substance use type: does not use Living arrangements: with family Occupation/Education: occupation Gender identity (if verbalized by the patient): Male Spiritual care concerns: No Exam 2 Narrative: GENERAL: Well-appearing, well-nourished, and in no acute distress. HEAD: Normocephalic, atraumatic. EYES: EOMI. ENT: Nares clear, no rhinorrhea or epistaxis. Mucous membranes moist. Oropharynx without tonsillar hypertrophy exudate or other lesions. Bilateral TMs pearly mack non-bulging NECK: Supple. No adenopathy or masses. CHEST: Clear to auscultation. No respiratory distress. No wheezes rales or rhonchi HEART: Regular rate and rhythm. No murmur heard. Normal peripheral pulses. EXTREMITIES: Normal range of motion. No edema. SKIN: Warm, dry, no rash. NEURO: No focal deficits. Alert and oriented x3. PSYCH: Normal mood and affect Course Course Emergency Course: Patient updated on his workup and agrees with plan of care Vital Signs Vital signs: Vital Signs Temperature 98.6 F 09/26/24 19:37 Pulse Rate 113 H 09/26/24 19:37 Respiratory Rate 20 09/26/24 19:37 Blood Pressure 139/84 09/26/24 19:37 Pulse Oximetry 100 09/26/24 19:37 Oxygen Delivery Room Air 09/26/24 19:37 Temperature 98.6 F 09/26/24 19:37 Pulse Rate 111 H 09/26/24 21:25 Respiratory Rate 18 09/26/24 21:25 Blood Pressure 138/76 09/26/24 21:25 Pulse Oximetry 99 09/26/24 21:25 Oxygen Delivery Room Air 09/26/24 19:37 MDM - URI/Sore Throat MDM Narrative Medical decision making narrative: Patient presents the emergency department for cold symptoms present since yesterday. He is afebrile and nontoxic appearing. Mildly tachycardic upon arrival, this improved with IV fluids. Cbc without leukocytosis. Metabolic panel without concerning findings. EKG without concerning changes in baseline troponin is negative. Chest x-ray without acute cardiopulmonary abnormality. Patient updated on his workup and agrees with plan of care. He is currently influenza A positive. Symptoms likely due to this. Instructed on further care a viral infection. He is to follow up with primary provider. He was given warnings to return to the ER Differential Diagnosis Differential diagnosis: Likely upper respiratory infection, sinusitis, viral infection and influenza Lab Data Attestation: I reviewed the patient's lab results. 09/26/24 21:06 09/26/24 21:06 Labs: Lab Results 09/26/24 Range/Units 21:06 WBC 5.9 (4.5-10.0) K/mm3 RBC 5.16 (4.6-6.20) M/mm3 Hgb 14.5 (14.0-18.0) g/dL Hct 44.2 (42.0-52.0) % MCV 85.7 (80-100) fl MCH 28.1 (26-34) pg MCHC 32.8 (32-36) g/dl RDW 14.6 H (11.5-14.5) % Plt Count 227 (150-375) k/mm3 MPV 10.1 (7.4-10.4) fl Immature Gran % (Auto) 0.7 H (0-0.5) % Neut % (Auto) 69.6 (45.5-73.1) % Lymph % (Auto) 18.4 (18.3-44.2) % [place] % (Auto) 10.6 H (2.6-8.5) % Eos % (Auto) 0.2 (0-4.4) % Baso % (Auto) 0.5 (0.2-1.2) % Lymph # (Auto) 1.09 (0.9-3.2) K/mm3 [place] # (Auto) 0.6 (0.1-0.6) K/mm3 Eos # (Auto) 0.0 (0-0.3) K/mm3 Baso # (Auto) 0.0 (0.0-0.1) K/mm3 Abs Immat Gran (auto) 0.04 H (0.00-0.031) K/mm3 Absolute Neuts (auto) 4.1 (1.3-6.7) K/mm3 Absolute Nucleated RBC 0.000 (0.0-0.012) K/mm3 Nucleated RBC % 0.0 (0.0-0.2) % Sodium 142 (137-145) mmol/L Potassium 4.5 (3.4-5.0) mmol/L Chloride 108 H (98-107) mmol/L Carbon Dioxide 25 (22-30) mmol/L Anion Gap 9 (4-12) mmol/L BUN 18 (9-20) mg/dL Creatinine 0.74 (0.7-1.3) mg/dL Estim Creat Clear Calc Not Reportable Estimated GFR > 60 (59 - ) Glucose 111 H (65-110) mg/dL Calcium 8.7 (8.4-10.2) mg/dL Total Bilirubin 0.9 (0.2-1.3) mg/dL AST 30 (17-59) U/L ALT 30 (6-50) U/L Alkaline Phosphatase 74 (38-126) U/L Troponin I < 0.012 (0.000-0.034) ng/mL Total Protein 7.0 (6.3-8.2) g/dL Albumin 4.2 (3.5-5.1) g/dL Imaging Data Radiologist's impression: ITS Impressions Chest X-Ray 09/26/24 21:19 IMPRESSION: No acute cardiopulmonary process. ECG Data EKG #1: ECG completion date: 09/26/24 EKG Interpretation: tachycardia, sinus rhythm, no ST changes and normal QT Critical Care Time Critical Care Time Critical Care Time: No Discharge Plan Discharge Clinical Impression: Influenza A Patient Disposition: Home, Self-Care Condition: Stable Instructions: Influenza (ED) Additional Instructions: Return to the emergency department for worsening symptoms, or any other concerns Remain well-hydrated, get plenty of rest. Take Tylenol or Motrin [id number] for pain as needed. Flonase for nasal congestion. Zyrtec for runny nose. Lozenges or Chloraseptic spray for sore throat. Follow up with primary care doctor Patient Language: Lao Prescriptions: No Action hydroxyzine pamoate 25 mg capsule 25 mg PO TID Invega Sustenna 156 mg/mL syringe 156 mg IM MONTHLY sertraline 100 mg tablet benzonatate 200 mg capsule 200 mg PO TID PRN (Reason: cough) Qty: 20 0RF methylprednisolone [Medrol (Aric)] 4 mg tablets,dose pack See Rx Instructions .ROUTE .COMPLEX Qty: 21 0RF Rx Instructions: orally per package directions Follow-up/Referrals: Edwina,Milton De La Cruz MD [Primary Care Provider] -
[2024-09-26 21:22] LABS: Alanine Aminotransferase 30 U/L (6-50); Albumin Level 4.2 g/dL (3.5-5.1); Alkaline Phosphatase 74 U/L (38-126); Anion Gap 9 mmol/L (4-12); Aspartate Amino Transferase 30 U/L (17-59); Bilirubin,Total 0.9 mg/dL (0.2-1.3); Blood Urea Nitrogen 18 mg/dL (9-20); Calcium 8.7 mg/dL (8.4-10.2); Carbon Dioxide 25 mmol/L (22-30); Chloride 108 mmol/L (98-107); Estimated Glomerular Filt Rate > 60; Glucose 111 mg/dL (65-110); Potassium 4.5 mmol/L (3.4-5.0); Sodium 142 mmol/L (137-145)
[2024-09-26] MEDS: SODIUM CHLORIDE 0.9% IV 1,000 ML 999 ML IV CONT (21:24)
[2024-09-26 21:25] VITALS: BP 138/76; PULSE 111; RESP 18; O2SAT 99
[2024-09-26] MEDS: KETOROLAC 15 MG/ML VIAL (*BKC) IV PUSH (21:25)
[2024-09-26 21:34] LABS: Troponin I < 0.012 ng/mL (0.000-0.034)
[2024-09-26 22:43] VITALS: BP 130/72; PULSE 100; RESP 20; O2SAT 99
== END 2024-09-26 22:45 | disposition home or self-care (01) ==
PROVIDERS: Emergency Provider Physician Assistant; PCP Internal Medicine Infectious Disease
DX: J10.1 Influenza due to other identified influenza virus with other respiratory manifestations (principal); K21.9 Gastro-esophageal reflux disease without esophagitis; F41.8 Other specified anxiety disorders; F17.210 Nicotine dependence, cigarettes, uncomplicated
CPT/HCPCS: 36415; 71046; 80053; 84484; 85025; 93005; 96361; 96374; 99284; J1885; J7030

== ENCOUNTER 2025-04-07 11:25 | Emergency (ER) | payer OTHER, BC, SELFPAY ==
--- NOTE | ~2025-04-07 | XR_ITS ---
Exam: X-ray right ankle minimum 3 views Clinical history: Injury. Right ankle lateral, bruising. TECHNIQUE: 4 images of the right ankle were obtained. Comparisons: None. FINDINGS: The talar dome is unremarkable. No fracture. No dislocation. Soft tissue swelling about the lateral m alleolus. IMPRESSION: 1.No acute bony abnormality identified. Soft tissue swelling about the lateral malleolus. If symptoms persist or worsen, consider a short-term follow-up study or additional imaging for furthe r assessment. Reviewed, dictated and finalized at location A. IMPRESSION: 1.No acute bony abnormality identified. Soft tissue swelling about the lateral malleolus. If symptoms persist or worsen, consider a short-term follow-up study or additio nal imaging for further assessment.
--- OUTSIDE RECORDS SUMMARY | 2025-04-07 11:31 | XMS_ITS | Clinical Summary ---
Author Organization [facility] [address] lt Address [address] [place] [address] Care Team Providers Care Wire Stitcher Machine Name Role Phone Marck Gee MD Unavailable Milton Bland MD Primary Care Provider [phone] Victoria Tran MD Unavailable [phone] Allergies No known active allergies Medications albuterol [...] seen in Urgent Care and [facility] ER. Assessment & Plan (12/17/2022 4:44 PM CDT): The right fifth finger cellulitis persists. It centers over the dorsal fifth PIP joint where the wound remains open and gaping with exposure of subcutaneous fat. He did go back to work and was swinging a hammer which is probably not the best thing for this condition. He will ask for desilverizer duty. There is no definite tendon or [...] planned. Assessment & Plan (09/16/2022 1:32 PM TEACHER OF THE HANDICAPPED): Subacute, interval improvement with initiation of Invega [...] monitor. Assessment & Plan (08/30/2022 8:31 PM TEACHER OF THE HANDICAPPED): Acute on chronic. Denies SI HI Start Invega - titrate up for effect. 2 wk f/u - plan peter MYERS if eff. 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 If he must kneel, he should use knee pads. A trial of nonsteroidals might be appropriate. ADHD (attention deficit hype ractivity disorder), combined type 01/04/2020 Assessment & Plan (11/01/2022 7:51 PM TEACHER OF THE HANDICAPPED): Discontinue Adderall since has relapsed again. Assessment & Plan (08/30/2022 8:33 PM TEACHER OF THE HANDICAPPED): Chronic, persistent symptoms of inattention, distractibility, inability [...] discussed. Assessment & Plan (09/11/2021 9:44 PM TEACHER OF THE HANDICAPPED): Chronic, persistent symptoms of inattention, distractibility, inability [...] freq. Assessment & Plan (11/01/2022 7:52 PM TEACHER OF THE HANDICAPPED): Strongly encouraged cessation. Not ready to quit. Referred for substance use treatment. Ambivalent about treatment. Assessment & Plan (09/16/2022 1:32 PM TEACHER OF THE HANDICAPPED): Chronic, persistent use. Likely contributing to psychosis. Not ready or willing to quit at this time. Encouraged substance use treatment. Declined. Assessment & Plan (08/30/2022 8:34 PM TEACHER OF THE HANDICAPPED): Not using. Strongly cautioned - no use. Agreed. Assessment & Plan (06/03/2022 12:23 PM CDT): Recommend decreasing overall use. Assessment & Plan (08/07/2021 3:32 PM TEACHER OF THE HANDICAPPED): He smokes a little bit every day which helps him calm down after a day of work. Assessment & Plan (06/14/2021 3:59 PM CDT): Reduce overall use. Assessment & Plan (10/10/2019 9:55 AM TEACHER OF THE HANDICAPPED): Chronic, persistent, does not see as a [...] encouraged him to cut back on alcohol. HIALRIO (acute kidney injury) 09/04/2019 Overview (09/04/2019): Due to intractable vomiting Assessment & Plan (02/10/2020 7:40 PM CDT): Cr 2.24 on Admission to OSH; hydrated to Cr 1.41 NS @ 100 Recheck labs Assessment & Plan (09/05/2019 4:23 PM TEACHER OF THE HANDICAPPED): Due to intractable vomiting, improving, cont to monitor Cannabis abuse, daily use 09/01/2019 Bipolar and related disorder 06/19/2019 Assessment & Plan (06/03/2022 12:26 PM CDT): [...] interval. Assessment & Plan (10/10/2019 9:59 AM TEACHER OF THE HANDICAPPED): Chronic, persistent, admixed with substance use issues. [...] consent. Assessment & Plan (09/04/2019 6:02 PM TEACHER OF THE HANDICAPPED): [facility] Assessment & Plan (06/19/2019 2:56 PM [...] disorder , severe, in sustained remission, dependence ([facility]) 06/19/2019 Assessment & Plan (12/17/2022 4:47 PM CDT): He is in group therapy and is working hard to avoid amphetamines but still snorts occasionally. Assessment & Plan (11/26/2022 4:14 PM CDT): Last use 10 days ago. Ongoing PI and voices. Assessment & Plan (11/01/2022 7:53 PM TEACHER OF THE HANDICAPPED): Admits that he used about a week [...] available. Assessment & Plan (08/30/2022 8:34 PM TEACHER OF THE HANDICAPPED): Relapse - no use reported since Jun. Cont cessation. Needs drug tx. Referred. Assessment & Plan (09/11/2021 9:44 PM TEACHER OF THE HANDICAPPED): Continued cessation highly advised. Denies any use. Assessment & Plan (06/14/2021 4:01 PM CDT): Continued cessation as advised. Denies any use. Assessment & Plan (12/12/2020 5:05 PM CDT): Denies any use. Continued cessation highly advised. Assessment & Plan (10/10/2019 9:56 AM TEACHER OF THE HANDICAPPED): Chronic, stable. Denies any use of methamphetamine. [...] proceed with full, informed consent. Alcohol-induced insomnia 06/19/2019 Assessment & Plan (06/14/2021 4:01 PM [...] use. Assessment & Plan (09/16/2022 1:32 PM TEACHER OF THE HANDICAPPED): Chronic and persistent use. Advised against using alcohol and drugs. Patient states that he is going to continue using them. He does not have much interest to quit at this time. Assessment & Plan (08/07/2021 3:34 PM TEACHER OF THE HANDICAPPED): He is still drinking heavily every day. Other mood problems seem to be better. We encouraged him to follow-up with psychiatry and seek assistance through other agencies such as [facility]. We will check some follow-up labs for toxic effects of heavy daily alcohol use. Assessment & Plan (10/10/2019 10:00 AM TEACHER OF THE HANDICAPPED): Chronic issue, treatment recommended, does not wish [...] monitor. Assessment & Plan (09/11/2021 9:44 PM TEACHER OF THE HANDICAPPED): Chronic condition, persistent but stable symptoms. Medication [...] interval. Assessment & Plan (10/10/2019 9:57 AM TEACHER OF THE HANDICAPPED): Chronic, persistent, difficult to tell whether not [...] 03/11/2014 Assessment & Plan (09/05/2019 4:23 PM TEACHER OF THE HANDICAPPED): Due to gastritis, IVF, supportive care. Clears only for now, improving and will advance diet as tolerated Tobacco use disorder 02/23/2013 Assessment & Plan (12/14/2022 3:12 PM CDT): He is no longer smoking cigarettes but is vaping. We recommended a pneumococcal vaccination. We can not give him immunizations here due to his insurance. Assessment & Plan (08/07/2021 3:28 PM TEACHER OF THE HANDICAPPED): Smokes cigarettes, about a pack a day. He has no motivation to quit. His father has emphysema and he has relatives who had lung cancer. We discussed the importance of cutting back and quitting now while he is still young. 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 He gets up every day. He enjoys his work. 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 It sounds like there are still some [...] Follow with patient who the patient's outpatient Right Of Way Manager is Hypokalemia 09/05/2019 10/07/2023 Overview (08/05/2021): See hospital record. Assessment & Plan (09/05/2019 4:23 PM TEACHER OF THE HANDICAPPED): replete Intractable vomiting 09/04/2019 023 Overview (12/30/2022): Cyclic vomiting syndrome vs gastritis per evaluation in 2019. Assessment & Plan (09/04/2019 6:03 PM TEACHER OF THE HANDICAPPED): Cyclic vomiting syndrome vs gastritis. Supportive care GI bleed 09/04/2019 12/30/2022 Overview (12/30/2022): See hospital records. Placed on PPI. Assessment & Plan (09/04/2019 6:08 PM TEACHER OF THE HANDICAPPED): Monitor CBC. Protonix bid Sprain of ligament of tarsometatarsal joint 03/15/2014 08/05/2021 Overview (08/05/2021): Details lacking. Diarrhea 03/11/2014 08/05/2021 Overview (08/05/2021): Details lacking. Immunizations Immunization Administration Dates Next Due DTaP 04/15/2009, 2,10/28/1998,04/29,03/01/1998,1997 [...] from baseball, left ankle tendon repair at [facility]. Medical History Medical History Date [...] on file Legal Sex Male 3:19 AM TEACHER OF THE HANDICAPPED Gender Identity Not on file Sexual Orientation Not on file Obstetrics History Last Filed Vital Signs Vital Sign Reading Time Taken Comments Blood Pressure 123/73 02/25/2024 3:19 PM CDT Pulse 94 02/25/2024 3:19 PM CDT Temperature 36.6 C (97.9 F) 02/25/2024 12:32 AM CDT Respiratory Rate 18 02/25/2024 3:19 PM CDT Oxygen Saturation 95% 02/25/2024 3:19 PM CDT Inhaled Oxygen Concentration - - Weight 94.9 kg (209 lb 3.5 oz) 02/24/2024 6:43 P M CDT Height 167.6 cm (5' 6) 02/24/2024 6:43 PM CDT Body Mass Index 33.77 02/24/2024 6:43 PM CDT Plan of Treatment Health Maintenance Due Date Last Done Comments Hepatitis C Screening 1997 Pneumococcal vaccine <65 (1 of 2 - PCV) 2016 Depression Screening 12/15/2023 12/14/2022, 08/07/2021, 08/27/2019, Additional history exists Regular Well Visit/Exam 18-64 12/15/2023 12/14/2022, 08/07/2021 Covid-19 Vaccine (3 - 2023-2 5 season) 2024 05/27/2021, 05/06/2021 DTaP/Tdap/Td Vaccine (9 - Td or Tdap) 11/19/2030 11/19/2020, 03/14/2012, 04/15/2009, Additional history exists Hepatitis B Screening Completed 05/01/2002 , 04/29/1998, 1997, Additional history exists HPV Vaccines Completed 03/01/2015, 11/2014, 10/22/2013 Influenza Vaccine Discontinued Insurance [employer] [facility] [employer] [facility] [employer]ETNA [facility] CHOICE PLUS [facility] HMO/PPO Address: [facility] [address] [place] [address] Advance Directives For more information, please contact: [phone] * Full Code (Latest Code Status on [...] 4:14 AM 08/28/2019 7:00 AM Care Teams Wire Stitcher Machine Relationship Specialty Start Date End Date Milton Bland MD [address] [place] [address] [place] [id number] PCP - General Internal Medicine 08/07/21 Marck Gee MD Surgeon Thoracic Surgery 02/11/20 [place] [address] [facility] [address] [address] Consulting Physician Plastic Surgery 12/21/22
--- OUTSIDE RECORDS SUMMARY | 2025-04-07 11:32 | XMS_ITS | Clinical Summary ---
Author Organization [facility] Address [address] [place] [address] Care Team Providers Care Head Coach Name Role Phone Unavailable Primary Care Provider Unavailabl e Source Comments [facility],non-owned Affiliates and Associated Physician Practices is amultiple site organization consisting of ambulatory clinics and hospital sitesin [place], [place], [place] and [place]. This disclosure is being madepursuant to the Care Everywhere program and may not contain all information available regarding this patient. Last updated 18.[facility] Allergies No known active allergies Medications * Be aware that medications may not be up to date on this document. Alwaysverify current medications with the patient. 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 Gender Identity Not on file Sexual Orientation Not on file Last Filed Vital Signs Vital Sign Reading Time Taken Comments Blood Pressure 128/79 03/01/2018 1:39 PM CDT Pulse 92 03/01/2018 1:38 PM CDT Temperature 36.7 C (98 F) 03/01/2018 1:38 PM CDT Respiratory Rate 15 03/01/2018 1:38 PM CDT Oxygen Saturation 100% 03/01/2018 1:38 PM CDT Inhaled Oxygen Concentration - - Weight 72.6 kg (160 lb) 03/01/2018 1:38 PM CDT Height 172.7 cm (5' 8) 03/01/2018 1:38 PM CDT Body Mass Index 24.33 03/01/2018 1:38 PM CDT Plan of Treatment Health Maintenance Due Date Last Done Comments HIV SCREENING 2012 DTAP/TDAP/TD VACCINES (1 - Tdap) 2016 HEPATITIS B VACCINE (1 of 3 - 19+ 3-dose series) 2016 COVID-19 VACCINE (1 - 2023-2 5 season) 2024 DEPRESSION SCREENING 08/26/2024 HPV VACCINE (1 - 3-dose SCDM series) 2024 INFLUENZA VACCINE (#1) 2025 ZOSTER VACCINE (1 of 2) 10/25/2047 HEPATITIS C SCREENING Completed 03/01/2018 HIB VACCINE Aged Out No longer eligi ble based on patient's age to complete this topic MENINGOCOCCAL (Group B) VACC INE SHARED DECISION-MAKING Aged Out No longer eligibl e based on patient's age to complete this topic MENINGOCOCCAL GROUPS A/C/Y/W VACCINE Aged Out No longer eligible b ased on patient's age to complete this topic PNEUMOCOCCAL VACCINE Aged Out No long er eligible based on patient's age to complete this topic Procedures Procedure Name Priority Date/Time Associated Diagnosis Comments HEPATITIS SCREEN ACUTE Add on 03/01/2018 2:23 PM CDT from Last 3 Months or Most Recently Relevant to Health Maintenance Results * HEPATITIS SCREEN ACUTE (03/01/2018 2:23 PM CDT) HAV Antibody IgM Non Reactive Non Reactive 03/02/2018 6:46 PM CDT [facility] HBsAg Non Reactive Non Reactive 03/02/2018 6:46 PM CDT [facility] HBc Antibody IgM Non Reactive Non Reactive 03/02/2018 6:46 PM CDT [facility] HCV Antibody Screen Non Reactive Non Reactive 03/02/2018 6:46 PM CDT [facility] HCV S/C Ratio 0.08 0.00 - 0.79 03/02/2018 6:46 PM CDT [facility] Comment: Hzmcce-jr-xnxpbu ratio (S/CO) <0.80: Non Reactive Blood BLOOD SPECIMEN / Unknown Venipuncture / Unknown 03/01/2018 2:23 PM CDT 03/01/2018 2:50 PM CDT Narrative [facility] - 03/02/2018 6:46 PM CDT Non Reactive - Antibodies to Hepatitis C virus (HCV) were not detected, result does not exclude early acute HCV infection. Non Reactive - Antibodies to Hepatitis C virus (HCV) were not detected, result does not exclude early acute HCV infection. us Evens Angel MD LAB - CHEMISTRY ORDERABLES Fin al Result [facility] [address] [place] [address] from Last 3 Months or Most Recently Relevant to Health Maintenance Insurance MEDICAID - [place] [facility], [facility] MEDICAID [facility]
--- OUTSIDE RECORDS SUMMARY | 2025-04-07 11:32 | XMS_ITS | Patient Health Record ---
Author Organization [facility] Address [address] [place] [address] Care Team Providers Care Local Government Legislator Name Role Phone Rachel Wero Primary Care Provider Phill Sweeney Unavailable [phone] Kia Vazquez Unavailable [phone] Allergies Allergen (clinical drug ingredient) Drug/Non Drug Allergy documented on EMR Reaction Allergy Type Onset Date Status trazodone traZODone HCl nasal congestion and insomnia Drug Allergy 04/21/2024 Active Results Component Value Reference Range Notes QuantiFERON-TB Gold Plus ([id number]) Reviewed date:04/21/2024 08:06:49 AM Interpretation: Negative [facility] [address] [facility], [place], Phone - [phone], Director - Delmy Notes/Report: QuantiFERON Incubation Incubation performed. QuantiFERON-TB Gold Plus Negative Negative No response to M tuberculosis antigens detected. Infection with M tuberculosis is unlikely, but high risk individuals should be considered for additional testing (ATS/IDSA/CDC Clinical Practice Guidelines, 2017). The reference range is an Antigen minus Nil result of <0.35 IU/mL. Chemiluminescence immunoassay methodology QuantiFERON Criteria QuantiFERON-TB Gold Plus is a qualitative indirect test for M tuberculosis infection (including disease) and is intended for use in conjunction with risk assessment, radiography, and other medical and diagnostic evaluations. The QuantiFERON-TB Gold Plus result is determined by subtracting the Nil value from either TB antigen (Ag) value. The Mitogen tube serves as a control for the test. QuantiFERON TB1 Ag Value 0.41 QuantiFERON TB2 Ag Value 0.47 QuantiFERON Nil Value 0.51 QuantiFERON Mitogen Value >10.00 Reason For Referral No Information Medications Medication SIG (Take, Route, Frequency, Duration) Notes Start Date End Date Status Sertraline HCl 100 MG 1 tablet Orally On ce a day; Duration: 30 days Active hydrOXYzine Pamoate 25 MG 1-2 capsules Orally three times a day; Duration: 30 days As needed Active Multivitamin - 1 tablet Orally Once a day; Duration: 30 days Active Melatonin 5 MG 1 - 2 tablets in the evening Orally Once a day; Duration: 30 days As needed Active Social History Tobacco Use: Social History Observation Description Date Details (start date - stop date) Current Smoker NA - NA Tobacco Control (Standard) Question Answer Notes Tobacco use: Current every day smoker Additional Findings: Tobacco user e-cigarette Section Notes: - - - - - - - - - - - ADDITIONAL SOCIAL HISTORY 04/21/2024: - - - - - - - - - - - PERSONAL BACKGROUND HISTORY Describe childhood- Raised old-fashioned - has a brother that is 10 years older, got hit when he did something wrong but doesn't think he was abused Abuse/Trauma- Trauma from experiences while using drugs Education- Some college Occupation- Unemployed Legal History- On probation for damage to property, drug paraphernalia Spiritual Affiliation- None Other Social History - Homeless prior to going to treatment - - - - - - - - - - - ALCOHOL/DRUG HISTORY Alcohol - 2x/month 1 pint of hard liquor Marijuana - None Cocaine - None Heroin - None Fentanyl - None Meth - None Other Illicit Drugs - None OTC/Rx Drugs - None - - - - - - - - - - - PAST PSYCHIATRIC HISTORY Past Psychiatrist or Therapist - None recently Psychiatric Diagnosis(es) - Schizophrenia (meth induced), anxiety Past Psychiatric Medications - Buspar, clonidine, risperidone, quetiapine Inpt Psych Hospitalizations - Twice in the past year for voices Suicidal Ideation Hx - Endorses several months ago Suicide Attempt(s) - None Homicidal Ideation - None Self-Injury/High Risk Bx - None - - - - - - - - - - - FAMILY PSYCHIATRIC HISTORY - None that he is aware of - - - - - - - - - - - - - - - - - - - - - - ADDITIONAL SOCIAL HISTORY 04/21/2024: - - - - - - - - - - - PERSONAL BACKGROUND HISTORY Describe childhood- Raised old-fashioned - has a brother that is 10 years older, got hit when he did something wrong but doesn't think he was abused Abuse/Trauma- Trauma from experiences while using drugs Education- Some college Occupation- Unemployed Legal History- On probation for damage to property, drug paraphernalia Spiritual Affiliation- None Other Social History - Homeless prior to going to treatment - - - - - - - - - - - ALCOHOL/DRUG HISTORY Alcohol - 2x/month 1 pint of hard liquor Marijuana - None Cocaine - None Heroin - None Fentanyl - None Meth - None Other Illicit Drugs - None OTC/Rx Drugs - None - - - - - - - - - - - PAST PSYCHIATRIC HISTORY Past Psychiatrist or Therapist - None recently Psychiatric Diagnosis(es) - Schizophrenia (meth induced), anxiety Past Psychiatric Medications - Buspar, clonidine, risperidone, quetiapine Inpt Psych Hospitalizations - Twice in the past year for voices Suicidal Ideation Hx - Endorses several months ago Suicide Attempt(s) - None Homicidal Ideation - None Self-Injury/High Risk Bx - None - - - - - - - - - - - FAMILY PSYCHIATRIC HISTORY - None that he is aware of - - - - - - - - - - - - - - - - - - - - - - ADDITIONAL SOCIAL HISTORY 04/21/2024: - - - - - - - - - - - PERSONAL BACKGROUND HISTORY Describe childhood- Raised old-fashioned - has a brother that is 10 years older, got hit when he did something wrong but doesn't think he was abused Abuse/Trauma- Trauma from experiences while using drugs Education- Some college Occupation- Unemployed Legal History- On probation for damage to property, drug paraphernalia Spiritual Affiliation- None Other Social History - Homeless prior to going to treatment - - - - - - - - - - - ALCOHOL/DRUG HISTORY Alcohol - 2x/month 1 pint of hard liquor Marijuana - None Cocaine - None Heroin - None Fentanyl - None Meth - None Other Illicit Drugs - None OTC/Rx Drugs - None - - - - - - - - - - - PAST PSYCHIATRIC HISTORY Past Psychiatrist or Therapist - None recently Psychiatric Diagnosis(es) - Schizophrenia (meth induced), anxiety Past Psychiatric Medications - Buspar, clonidine, risperidone, quetiapine Inpt Psych Hospitalizations - Twice in the past year for voices Suicidal Ideation Hx - Endorses several months ago Suicide Attempt(s) - None Homicidal Ideation - None Self-Injury/High Risk Bx - None - - - - - - - - - - - FAMILY PSYCHIATRIC HISTORY - None that he is aware of - - - - - - - - - - - - - - - - - - - - - - ADDITIONAL SOCIAL HISTORY 04/21/2024: - - - - - - - - - - - PERSONAL BACKGROUND HISTORY Describe childhood- Raised old-fashioned - has a brother that is 10 years older, got hit when he did something wrong but doesn't think he was abused Abuse/Trauma- Trauma from experiences while using drugs Education- Some college Occupation- Unemployed Legal History- On probation for damage to property, drug paraphernalia Spiritual Affiliation- None Other Social History - Homeless prior to going to treatment - - - - - - - - - - - ALCOHOL/DRUG HISTORY Alcohol - 2x/month 1 pint of hard liquor Marijuana - None Cocaine - None Heroin - None Fentanyl - None Meth - None Other Illicit Drugs - None OTC/Rx Drugs - None - - - - - - - - - - - PAST PSYCHIATRIC HISTORY Past Psychiatrist or Therapist - None recently Psychiatric Diagnosis(es) - Schizophrenia (meth induced), anxiety Past Psychiatric Medications - Buspar, clonidine, risperidone, quetiapine Inpt Psych Hospitalizations - Twice in the past year for voices Suicidal Ideation Hx - Endorses several months ago Suicide Attempt(s) - None Homicidal Ideation - None Self-Injury/High Risk Bx - None - - - - - - - - - - - FAMILY PSYCHIATRIC HISTORY - None that he is aware of - - - - - - - - - - - Problems Problem Type SNOMED Code ICD Code Onset Dates Problem Status W/U Status Risk Notes Problem Tobacco user (839249348) Nicotine dependence, unspecified, uncomplicated (F17.200) Active confirmed Problem Generalized anxiety disorder (63693575) AMANDA (generalized anxiety disorder) (F41.1) Active confirmed Problem Bilateral tinnitus (8796409180218) Tinnitus of both ears (H93.13) Active confirmed Problem Methamphetamine abuse (661734329) Methamphetamine abuse (F15.10) Active confirmed Problem Obesity (988262286) Obesity (BMI 30-39.9) (E66.9) Active confirmed Problem Auditory hallucinations (90095833) Auditory hallucinations (R44.0) Problem resolved confirmed Vital Signs Heart Rate 84 /min 04/17/2024 Respiratory Rate 16 /min 04/17/2024 Blood pressure diastolic 70 mm Hg 04/17/2024 Oximetry 97 % 04/17/2024 Height 67.00 in 04/17/2024 Blood pressure systolic 108 mm Hg 04/17/2024 Weight 210.00 lbs 04/17/2024 BMI 32.89 kg/m2 04/17/2024 Encounters Encounter Location Date Provider Diagnosis [facility] [place] [address] 04/15/2024 [facility] General medical exam Z00.00 ; Obesity (BMI 30-39.9) E66.9 ; Nutritional counseling Z71.3 and Nicotine dependence, unspecified, uncomplicated F17.200 [facility] [place] [address] 04/16/2024 [facility] General medical exam Z00.00 [address] [address] [place] [address] 04/17/2024 Wero Ramos Tinnitus of both ear s H93.[address] [address] 04/21/2024 Kia Taylor Depressive disorder F32.A ; AMANDA (generalized anxiety disorder) F41.1 ; Methamphetamine abuse F15.10 ; Auditory hallucinations R44.0 and Nicotine dependence, unspecified, uncomplicated F17.[address] [address] 05/11/2024 Kia Taylor Depressive disorder F32.A ; AMANDA (generalized anxiety disorder) F41.1 ; Methamphetamine abuse F15.10 ; Auditory hallucinations R44.0 and Nicotine dependence, unspecified, uncomplicated F17.[address] [address] 06/08/2024 Kia Sabnelson Depressive disorder F32.A ; AMANDA (generalized anxiety disorder) F41.1 ; Methamphetamine abuse F15.10 ; Auditory hallucinations R44.0 and Nicotine dependence, unspecified, uncomplicated F17.[address] [place] [address] 08/04/2024 Kia Vazquez Depressive disorder F32.A ; AMANDA (generalized anxiety disorder) F41.1 ; Methamphetamine abuse F15.10 ; Nicotine dependence, unspecified, uncomplicated F17.200 and Medication management Z79.[address] [address] 05/05/2024 Wero Ramos [address] [address] 05/25/2024 Kia Vazquez AMANDA (generalized anxiety disorder) F41.1 Assessments Encounter Date Diagnosis (ICD Code) Assessment Notes Treatment Notes Treatment Clinical Notes Section Notes 04/15/2024 General medical exam (ICD-10 - Z00.00) Continue treatment as recommended by [facility] staff. Encouraged patient to obtain routine medical care with patient's own primary care provider or establish as a patient at [facility] if no current primary care provider. 04/15/2024 Obesity (BMI 30-39.9) (ICD-10 - E66.9) 04/16/2024 General medical exam (ICD-10 - Z00.00) 04/17/2024 Tinnitus of both ears (ICD-10 - H93.13) LIKELY DUE TO HEAD TRAUMA AND NOISE EXPOSURE WITH ASSOCIATED MILD HIGH FREQUENCY HEARING LOSS. ADVISED ASSIDUOUS HEARING PROTECTION. CONSIDER AUDIOLOGY REFERRAL AT F/U (AFTER COMPLETING STAY IN UNIT) 04/21/2024 Depressive disorder (ICD-10 - F32.A) 05/11/2024 Depressive disorder (ICD-10 - F32.A) 05/25/2024 AMANDA (generalized anxiety disorder) (ICD-10 - F41.1) 06/08/2024 Depressive disorder (ICD-10 - F32.A) 08/04/2024 Depressive disorder (ICD-10 - F32.A) 08/04/2024 AMANDA (generalized anxiety disorder) (ICD-10 - F41.1) Take sertraline as prescribed. 06/08/2024 AMANDA (generalized anxiety disorder) (ICD-10 - F41.1) Take sertraline as prescribed. 05/11/2024 AMANDA (generalized anxiety disorder) (ICD-10 - F41.1) Take sertraline as prescribed. 04/21/2024 AMANDA (generalized anxiety disorder) (ICD-10 - F41.1) Take sertraline as prescribed. 04/21/2024 Methamphetamine abuse (ICD-10 - F15.10) Continue long-term residential treatment as planned. 04/15/2024 Nutritional counseling (ICD-10 - Z71.3) 05/11/2024 Methamphetamine abuse (ICD-10 - F15.10) Continue long-term residential treatment as planned and recommend a combination of 12-step programs, outpatient programs, and psychotherapy to maintain recovery in the outpatient setting. 06/08/2024 Methamphetamine abuse (ICD-10 - F15.10) Recommend a combination of 12-step programs, outpatient programs, and psychotherapy to maintain recovery in the outpatient setting. 08/04/2024 Methamphetamine abuse (ICD-10 - F15.10) Recommend a combination of 12-step programs, outpatient programs, and psychotherapy to maintain recovery in the outpatient setting. 08/04/2024 Nicotine dependence, unspecified, uncomplicated (ICD-10 - F17.200) Client reports cessation of all nicotine products, including nicotine patch. 05/11/2024 Auditory hallucinations (ICD-10 - R44.0) 06/08/2024 Auditory hallucinations (ICD-10 - R44.0) 04/15/2024 Nicotine dependence, unspecified, uncomplicated (ICD-10 - F17.200) 04/21/2024 Auditory hallucinations (ICD-10 - R44.0) 04/21/2024 Nicotine dependence, unspecified, uncomplicated (ICD-10 - F17.200) 06/08/2024 Nicotine dependence, unspecified, uncomplicated (ICD-10 - F17.200) 05/11/2024 Nicotine dependence, unspecified, uncomplicated (ICD-10 - F17.200) 08/04/2024 Medication management (ICD-10 - Z79.899) May self-administer medications or be administered own oral medications per [facility] protocols. Provided informed consent with understanding of side effects, adverse effects, risks and benefits as well as alternative treatments as previously discussed and with the above recommended medications & other aspects of the treatment program. Agrees to return sooner if symptoms worsen or suicidal or homicidal ideations occur. 04/15/2024 Other 04/21/2024 Other May self-administer medications or be administered own oral medications per [facility] protocols. Provided informed consent with understanding of side effects, adverse effects, risks and benefits as well as alternative treatments as previously discussed and with the above recommended medications & other aspects of the treatment program. Agrees to return sooner if symptoms worsen or suicidal or homicidal ideations occur. 05/11/2024 Other May self-administer medications or be administered own oral medications per [facility] protocols. Provided informed consent with understanding of side effects, adverse effects, risks and benefits as well as alternative treatments as previously discussed and with the above recommended medications & other aspects of the treatment program. Agrees to return sooner if symptoms worsen or suicidal or homicidal ideations occur. 06/08/2024 Other May self-administer medications or be administered own oral medications per [facility] protocols. Provided informed consent with understanding of side effects, adverse effects, risks and benefits as well as alternative treatments as previously discussed and with the above recommended medications & other aspects of the treatment program. Agrees to return sooner if symptoms worsen or suicidal or homicidal ideations occur. Plan Of Treatment No Information Insurance Providers Payer Name Payer Address Payer Phone Subscriber Number Group Number Insured Name Patient Relationship to Insured Coverage Start Date Coverage End Date [facility] [address] [place] [address] [id number] Wenceslao Johnson Self - patient is the insured 4 4 [employer] [address] [place] [address] [id number] Wenceslao Johnson Self - patient is the insured 4 Medical (General) History Medical History History ICD Code No significant prior medical Hx Auditory hallucinations (resolved 2023) Surgical History Surgery Date(Month/Year) screws in left ankle 2017 Hospitalization History Reason Date(Month/Year) mental health 2023
--- OUTSIDE RECORDS SUMMARY | 2025-04-07 11:32 | XMS_ITS | Encounter Summary ---
Author Organization [facility] Healthcare Address [address] [place] [address] Care Team Providers Care Access Director Name Role Phone Marck Gee MD Unavailable Milton Bland MD Primary Care Provider [phone] Victoria Tran MD Unavailable [phone] Encounter Details Date Type Department Care Team (Late st Contact Info) Description 09/27/2024 Orders Only [facility] Health Information Management [address] [place] [id number] Scanning, Provider Social History Tobacco Use Types Packs/Day Years Used Date Smoking Tobacco: Every Day Cigarettes Cigars Smokeless Tobacco: Never Alcohol Use Standard Drinks/Week Comments Yes 8 [...] on file Legal Sex Male 3:19 [employer] Gender Identity Not on file Sexual Orientation Not on file documented as of this encounter Plan of Treatment Not on file documented as of this encounter Procedures Procedure Name Priority Date/Time Associated Diagnosis Comments SCAN - RADIOLOGY/IMAGING 09/27/2024 documented in this encounter Results * SCAN - RADIOLOGY/IMAGING (09/27/2024) Anatomical Region Laterality Modality Other us Provider Scanning Final Result documented in this encounter Visit Diagnoses Not on filedocumented in this encounter Care Teams Access Director Relationship Specialty Start Date End Date Milton Bland MD [address] [address] [place] [address] PCP - General Internal Medicine 08/07/21 Marck Gee MD Surgeon Thoracic Surgery 02/11/20 [place] [address] [address] [facility] [address] [place] [address] Consulting Physician Plastic Surgery 12/21/22 documented as of this encounter
--- OUTSIDE RECORDS SUMMARY | 2025-04-07 11:32 | XMS_ITS ---
Author Organization [facility] Address [address] [place] [address] Care Team Providers Care New Patient Escort Name Role Phone Evita Bond Primary Care Provider Allergies No Known Allergies REASON FOR VISIT Meds, Hallucinations Medications Medication SIG (Take, Route, Fr equency, Duration) Notes Start Date End Date Status predniSONE 10 MG Take 6 tablets on da y 1. Then decrease by 1 tablet daily for 6 days. Orally Once a day Active Social History Tobacco Use: Social History Observation Description Date Details (start date - stop date) Current Smoker NA - NA Sexual History Question Answer Notes Had sex in the past 12 months (vaginal, oral, or anal)? Yes with Women only Use protection? Yes How often? Most of the time Prevention strategies discussed: Condoms Have you ever had a Sexually transmitted disease ? No Tobacco use other than smoking: Question Answer Notes Are you an other tobacco user? No Tobacco Control (Standard) Question Answer Notes Tobacco use: Current smoker How often do you smoke cigarettes? Every day How many cigarettes a day do you smoke? 5 or les s How soon after you wake up do you smoke your fir st cigarette? Within 5 minutes Are you interested in quitting? Not ready to lisa t AUDIT-C (Standard) Question Answer Notes Did you have a drink contain ing alcohol in the past year? Yes How often did you have a dri nk containing alcohol in the past year? 2 to 4 times a month (2 points) How many drinks did you have on a typical day when you were drinking in the past year? 3 or 4 drinks (1 point) How often did you have six o r more drinks on one occasion in the past year? 2 to 4 times a month (2 points) Points 5 Interpretation Positive PRAPARE Question Answer Notes Date Completed/Updated: 03/09/2025 What is your current housing situation? I have h ousing Are you worried about losing your housing? No What is the highest level of school that you have finished? 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 Check all that apply I do not have problems meeting my needs Has lack of transportation k ept you from medical appointments, meetings, work or from getting things needed for daily living? No How often do you see or talk to people that you care about and feel close to? (For example: talking to friends on the phone, visiting friends or family, going to christian or club meetings) 3 to 5 times a week How stressed are you? Stress is when someone feels tense, nervous, anxious, or can't sleep at night because their mind is troubled Somewhat PRAPARE Score: 1 Enabling Services Provided? Yes Please specify Outreach Services Problems Problem Type SNOMED Code ICD Code Onset Dates Problem Status W/U Status Risk Notes Problem BMI 30+ - obesity (167000061) BMI 32.0-32.9,adult (Z68.32) Active confirmed Problem Methamphetamine abuse (645587343) Methamphetamine abuse (F15.10) Active confirmed Vital Signs Temperature 97.9 degrees Fahrenheit 03/09/20 25 Blood pressure systolic 158 mm Hg 03/09/20 25 Blood pressure diastolic 97 mm Hg 025 Heart Rate 105 /min 03/09/2025 Respiratory Rate 18 /min 03/09/2025 Height 69 in 03/09/2025 Weight 217 lbs 03/09/2025 BMI 32.04 kg/m2 03/09/2025 Oximetry 98 % 03/09/2025 Height-cm 175.26 cm 03/09/2025 Weight-kg 98.43 kg 03/09/2025 Encounters Encounter Location Date Provider Diagnosis [address] [address] 03/09/2025 Evita Bond BMI 32.0-32.9,adult Z68.32 ; Tobacco abuse Z72.0 ; Exercise counseling Z71.82 ; Dietary counseling Z71.3 ; Tobacco abuse counseling Z71.6 and Methamphetamine abuse F15.10 Assessments Encounter Date Diagnosis (ICD Code) Assessment Notes Treatment Notes Treatment Clinical Notes Section Notes 03/09/2025 BMI 32.0-32.9,adult (ICD-10 - Z68.32) 03/09/2025 Tobacco abuse (ICD-10 - Z72.0) 03/09/2025 Exercise counseling (ICD-10 - Z71.82) 03/09/2025 Dietary counseling (ICD-10 - Z71.3) 03/09/2025 Tobacco abuse counseling (ICD-10 - Z71.6) 03/09/2025 Methamphetamine abuse (ICD-10 - F15.10) Plan Of Treatment No Information Progress Notes * Wenceslao CHANDRADOB:1995 (29 yo M)Acc No.[id number]:03/09/2025 Patient: Wenceslao ESTEVES Provider: CORINE Hernandez :1995 A ge:29 Y S ex:Male Date:03/09/2025 Address:[address] [place] [address] Check In:02:49 PM CSTCheck O ut:03:14 PM 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 Meds, Hallucinations. * HPI: D epression Screening: PHQ-2 (2015 Edition) L ittle interest or pleasure in doing things? S everal days, F eeling down, depressed, or hopeless? S everal days, T otal Score 2 . 03/09/25 Patient is a current resident of [facility]. He is being treated for methamphetamine abuse. 1/2gm daily. He last used 7 days ago. Patient reports that he has auditory hallucinations that is worse at night and when he is using Meth. He has had his auditory hallucinations for the last 5 years. H e reports that since he has been at [facility] he no longer hears any voices. He scored an 8 on his PHQ9. He does not want any medications due to side effects- weight gain. He already sees MH here at [facility]. Will follow up as needed. D epression Screening: PHQ-9 L ittle interest or pleasure in doing things S everal days, F eeling down, depressed, or hopeless S everal days, T rouble falling or staying asleep, or sleeping too much S everal days, F eeling tired or having little energy S everal days, P oor appetite or overeating S everal days, F eeling bad about yourself or that you are a failure, or have let yourself or your family down M ore than half the days, T rouble concentrating on things, such as reading the newspaper or watching television S ever, M oving or speaking so slowly that other people could have noticed; or the opposite, being so fidgety or restless that you have been moving around a lot more than usual S ever,?Thoughts that you would be better off or of hurting yourself in some way N ot at all, Total Score 9 , I nterpretation M ild Depression. I ntervention D epression Screening Findings P ositive, S uicide Risk Assessment Performed 0 03/09/2025. F amily Planning: Reproductive Life Plan D o you want to talk about contraception or prevention during your visit today? N o, D o any of these apply to you??I am here for something else. * ROS: G eneral/Constitutional: Patient denies c hills, fatigue, fever, headache. ? R espiratory: Patient denies c ough, shortness of breath, sputum production, wheezing. C ardiovascular: Patient denies c hest pain, palpitations, swelling in hands/feet, Syncopal events. G astrointestinal: Patient denies a bdominal pain, nausea, vomiting, diarrhea, constipation, blood in stool. M usculoskeletal: Patient denies a rthritis, back problems, muscle aches, painful joints, weakness. S kin: Patient denies d iscoloration, dry skin, mole(s), rash.? N eurologic: Patient denies d izziness, fainting, headache, loss of strength, seizures, tingling/numbness. P sychiatric: Patient denies f eelings of anxiety , depressed mood , auditory/visual hallucinations , suicidal/homicidal thoughts. * Medical History: A nxiety, ADHD. * Surgical History: L eft ankle screws . * Hospitalization/Major Diagno stic Procedure: L eft ankle has screws put in . * Family History: N o Family History documented.. * Social History: T obacco Use: T obacco use other than smoking A re you an other tobacco user? N o. A re you a second hand smoker? A re you a second hand smoker? N o. T obacco Control (Standard) T obacco use: C urrent smoker, H ow often do you smoke cigarettes? E very day, H ow many cigarettes a day do you smoke? 5 or less, H ow soon after you wake up do you smoke your first cigarette? W ithin 5 minutes, A re you interested in quitting? N ot ready to quit.? P CMH: A DULT E ducation: M ore than high school diploma/GED, E mployment: F ull time, D o you understand spoken welsh? Y es, C ommunication needs (hearing, visual or cognitive): N o, G ood ability to interact with other people: Y es, I nsecurities in? (list all that apply) N one, R eviewed/Updated 0 03/09/2025. D rug/Alcohol: A PEDRO-C (Standard) D id you have a drink containing alcohol in the past year? Y es,?How often did you have a drink containing alcohol in the past year? 2 to 4 times a month (2 points), H ow many drinks did you have on a typical day when you were drinking in the past year? 3 or 4 drinks (1 point), H ow often did you have six or more drinks on one occasion in the past year? 2 to 4 times a month (2 points), P oints 5 , I nterpretation P ositive. S exual History: S exual History H ad sex in the past 12 months (vaginal, oral, or anal)? Y es, w ith W omen only, U se protection? Y es, H ow often? M ost of the time, P revention strategies discussed: C ondoms, H ave you ever had a Sexually transmitted disease??No. D etails of Sexual History A re you sexually active? Y es, A re you having any sexual problems? N o, H ave you had any sexually transmitted diseases (STDs)? N o. S exual Abuse H istory: n one. D rugs/Alcohol: D rugs H ave you used drugs other than those for medical reasons in the past 12 months??Yes, A re you in a treatment program? Y es, r elapse prevention discussed? Y es, Name of program: [facility], T ype of program: R esidential treatment, H ave ever injected drugs? Y es, A re you currently injecting drugs? Y es, A re you still using? N o, I s there a minor (18 years or younger) at risk at home? N o, Methamphetamine? Y es. C affeine I ntake: m ore than 4 cups per day. S ocial Determinants: Mita MIKE D ate Completed/Updated: 0 03/09/2025, W hat is your current housing situation? I have housing, A re you worried about losing your housing? N o, W hat is the highest level of school that you have finished? M ore than high school, W hat is your current work situation? F ull time work, I n the past year, have you or any family members you live with been unable to get any of the following when it was really needed? Check all that apply I do not have problems meeting my needs, H as lack of transportation kept you from medical appointments, meetings, work or from getting things needed for daily living? N o, H ow often do you see or talk to people that you care about and feel close to? (For example: talking to friends on the phone, visiting friends or family, going to christian or club meetings) 3 to 5 times a week,?How stressed are you? Stress is when someone feels tense, nervous, anxious, or can't sleep at night because their mind is troubled S Mita resendiz Score: 1 , E nabling Services Provided? Mita Ng specify O [facility]. * Medications: T aking predniSONE 10 MG Tablet Take 6 tablets on day 1. Then decrease by 1 tablet daily for 6 days. Orally Once a day , Medication List reviewed and reconciled with the patient * Allergies: N .K.D.A. Objective: * Vitals: Wt 217lbs 03/09/2025 02:58:47 PM AVIONICS ELECTRONICS TECHNICIAN Wt-kg* 98.43 kg 03/09/2025 02:58:47 PM AVIONICS ELECTRONICS TECHNICIAN Johnna F orrester HERBICIDE SERVICE SALES REPRESENTATIVE Ht* 69in 03/09/2025 02:58:47 PM AVIONICS ELECTRONICS TECHNICIAN Johnna F orrester HERBICIDE SERVICE SALES REPRESENTATIVE Ht-cm* 175.26 cm 03/09/2025 02:58:47 PM AVIONICS ELECTRONICS TECHNICIAN Johnna F orrester HERBICIDE SERVICE SALES REPRESENTATIVE BMI* 32.04Index 03/09/2025 02:58:47 PM AVIONICS ELECTRONICS TECHNICIAN Johnna F orrester HERBICIDE SERVICE SALES REPRESENTATIVE BP* 158/97mm Hg 03/09/2025 02:58:47 PM AVIONICS ELECTRONICS TECHNICIAN Johnna F orrester HERBICIDE SERVICE SALES REPRESENTATIVE Temp* 97.9F 03/09/2025 02:58:47 PM AVIONICS ELECTRONICS TECHNICIAN Johnna F orrester HERBICIDE SERVICE SALES REPRESENTATIVE HR* 105/min 03/09/2025 02:58:47 PM AVIONICS ELECTRONICS TECHNICIAN Johnna F orrester HERBICIDE SERVICE SALES REPRESENTATIVE RR* 18/min 03/09/2025 02:58:47 PM AVIONICS ELECTRONICS TECHNICIAN Johnna F orrester HERBICIDE SERVICE SALES REPRESENTATIVE Oxygen sat %* 98% 03/09/2025 02:58:47 PM AVIONICS ELECTRONICS TECHNICIAN Johnna F orrester HERBICIDE SERVICE SALES REPRESENTATIVE * Examination: G eneral Examination: GENERAL APPEARANCE: a lert, well hydrated, in no distress.? SKIN: g ood turgor, warm, dry skin, without lesions or rashes. HEART: G ood femoral pulses, no murmurs, regular rate and rhythm, S1, S2 normal. LUNGS: c lear to auscultation bilaterally, No wheezing, No rhonchi, No rales, No cough. ABDOMEN: S oft, Nontender, Nondistended, No masses, No visual or palpable hernia, Bowel sounds present. MUSCULOSKELETAL: f ull range of motion, No joint swelling or joint deformity. NEUROLOGIC: a lert and oriented, no focal neurological deficits, motor strength normal upper and lower extremities, gait normal. PSYCH: c ognitive function intact, judgement and insight good, mood/affect full range. Assessment: * Assessment: 1. T obacco abuse - Z72.0 (Primary) 2 . B VT 32.0-32.9,adult - Z68.32 ? 3 . E xercise counseling - Z71.82 4 . D ietary counseling - Z71.3? 5. T obacco abuse counseling - Z71.6 6 . M ethamphetamine abuse - F15.10 Plan: * Treatment: * Procedure Codes: G 9902 Pt scrn tbco and id as user * Preventive Medicine: YOUR PREVENTIVE WELLNESS PLAN: O ral Health: T he recommended frequency for dental check-ups is: e very 6 months, L ast dental check-up was: m ore than a year ago, Intervention: e ncouraged pt to make appointment with their dentist or with a [facility],?Education handouts provided: Carlos schroeder about Dental Care. Counseling: B P Management: L IFESTYLE RECOMMENDATION: H ypertension education, P HYSICAL ACTIVITY RECOMMENDATION: G iving encouragement to exercise, D IETARY RECOMMENDATIONS: L ow fat diet education. C are goal follow-up plan: B VT management provided Y es, E xercise Counseling Provided- Y es, N utrition/Dietary Counseling provided?Yes, A arnoldo Normal BMI Follow-up G iving encouragement to exercise, Lifestyle education regarding diet. C ommunication to patient: Jono kennseled the Patient on smoking effects; education provided 0 03/09/2025 . S MOKING: P atient counselled on the dangers of tobacco use and urged to quit. 0 03/09/2025 . * * Electronic signature of CORINE Lindsey on 04/07/2025 at 11:31 AM CDT Sign off status: Pending Visit Status: Jono HK (Check Out) * Provider: CORINE Hernandez Date: 0 03/09/2025 Generated for Cassandra medina/Mitesh/Rakel on: 0 04/07/2025 11:31 AM CDT History and Physical Notes * HPI (History of Present Illness) Category Sub-Category Detail Notes Category Not es Family Planning Reproductive Life Plan Do you wa nt to talk about contraception or prevention during your visit today?: No Do any of these apply to you?: I am here for something else Depression Screening PHQ-9 Little inte rest or pleasure in doing things: Several days Feeling down, depressed, or hopeless: Se veral days Trouble falling or staying asleep, or sl eeping too much: Several days Feeling tired or having little energy: S everal days Poor appetite or overeating: Several day s Feeling bad about yourself o r that you are a failure, or have let yourself or your family down: More than half the days Trouble concentrating on thi ngs, such as reading the newspaper or watching television: Several days Moving or speaking so slowly that other people could have noticed; or the opposite, being so fidgety or restless that you have been moving around a lot more than usual: Several days Thoughts that you would be b myra off or of hurting yourself in some way: Not at all Total Score: 9 Interpretation: Mild Depression Intervention Depression Screening Findings: P ositive Suicide Risk Assessment Performed: 03/09 Depression Screening PHQ-2 (2015 Edition) Little interest or pleasure in doing things?: Several days 03/09/25 Patient is a current resident of [facility]. He is being treated for methamphetamine abuse. 1/2gm daily. He last used 7 days ago. Patient reports that he has auditory hallucinations that is worse at night and when he is using Meth. He has had his auditory hallucinations for the last 5 years. He reports that since he has been at [facility] he no longer hears any voices. He scored an 8 on his PHQ9. He does not want any medications due to side effects- weight gain. He already sees MH here at [facility]. Will follow up as needed. Feeling down, depressed, or hopeless?: S ever Total Score: 2 Examination Category Sub-Category Detail Notes Category Not es General Examination GENERAL APPEARANCE: alert, w ell hydrated, in no distress HEART: Good femoral pulses, no murmurs, regular rate and rhythm, S1, S2 normal LUNGS: clear to auscultatio n bilaterally, No wheezing, No rhonchi, No rales, No cough ABDOMEN: Soft, Nontender, Non distended, No masses, No visual or palpable hernia, Bowel sounds present NEUROLOGIC: alert and oriented, no focal neurological deficits, motor strength normal upper and lower extremities, gait normal SKIN: good turgor, warm, d ry skin, without lesions or rashes MUSCULOSKELETAL: full range of motion , No joint swelling or joint deformity PSYCH: cognitive function i ntact, judgement and insight good, mood/affect full range
--- OUTSIDE RECORDS SUMMARY | 2025-04-07 11:32 | XMS_ITS | Patient Health Record ---
Author Organization [facility] Address [address] [place] [address] Care Team Providers Care Appliquer Zigzag Name Role Phone Evita Bond Primary Care Provider Allergies No Known Allergies Reason For Referral No Information Medications Medication SIG (Take, Route, Fr equency, Duration) Notes Start Date End Date Status predniSONE 10 MG Take 6 tablets on da y 1. Then decrease by 1 tablet daily for 6 days. Orally Once a day Active Immunizations Vaccine Route Administration Date Status Comme nts DTaP (Infanrix) NON-VFC Unknown 1995 Administered DTaP (Infanrix) NON-VFC Unknown 03/01/1998 Administered DTaP (Infanrix) NON-VFC Unknown 04/29/1998 Administered DTaP (Infanrix) NON-VFC Unknown 10/28/1998 Administered DTaP (Infanrix) NON-VFC Unknown 05/01/2002 Administered DTaP (Infanrix) NON-VFC Unknown 04/15/2009 Administered Hep B, adol/ ped (Engerix) NON-VFC Unknown 1995 A dministered Hep B, adol/ ped (Engerix) NON-VFC Unknown 1995 A dministered Hib, unspecified formulation Unknown 1995 Adminis tered Hib, unspecified formulation Unknown 03/01/1998 Adminis tered Hib, unspecified formulation Unknown 10/28/1998 Adminis tered Hib-Hep B Unknown 04/29/1998 Administered Hib-Hep B Unknown 05/01/2002 Administered HPV (human papillomavirus), quadrivalent, 3 dose schedule Unknown 10/22/2013 Administered HPV (human papillomavirus), quadrivalent, 3 dose schedule Unknown 10/27/2014 Administered HPV (human papillomavirus), quadrivalent, 3 dose schedule Unknown 03/01/2015 Administered IPV, NON-VFC Unknown 03/01/1998 Administered IPV, NON-VFC Unknown 05/01/2002 Administered IPV, VFC Unknown 1995 Administered Menactra Meningococcal (MCV4P) Unknown 10/22/2013 Admin istered MMR, NON-VFC Unknown 10/28/1998 Administered MMR, NON-VFC Unknown 06/17/2002 Administered OPV Unknown 10/28/1998 Administered Pfizer COVID-19 Unknown 05/06/2021 Administered Pfizer COVID-19 Unknown 05/27/2021 Administered Tdap (Boostrix) NON-VFC Unknown 03/14/2012 Administered Tdap (Boostrix) NON-VFC Unknown 11/19/2020 Administered Varicella, (Varivax) NON-VFC Unknown 06/17/2002 Adminis tered Varicella, (Varivax) NON-VFC Unknown 04/15/2009 Adminis tered Social History Tobacco Use: Social History Observation [...] school 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 Stress is when someone feels tense, nervous, anxious, or can't sleep at night because their mind is troubled Somewhat PRAPARE Score: 1 Enabling Services Provided? Yes Please specify Outreach Services Problems Problem Type SNOMED Code ICD Code Onset Dates Problem Status W/U Status Risk Notes Problem BMI 30+ - obesity (131968696) BMI 32.0-32.9,adult (Z68.32) Active confirmed Problem Methamphetamine abuse (676648741) Methamphetamine abuse (F15.10) Active confirmed Vital Signs Heart Rate 105 /min 03/09/2025 Temperature 97.9 degrees Fahrenheit 03/09/2025 Respiratory Rate 18 /min 03/09/2025 Oximetry 98 % 03/09/2025 Blood pressure diastolic 97 mm Hg 03/09/2025 Height-cm 175.26 cm 03/09/2025 Weight-kg 98.43 kg 03/09/2025 Height 69 in 03/09/2025 Blood pressure systolic 158 mm Hg 03/09/2025 Weight 217 lbs 03/09/2025 BMI 32.04 kg/m2 03/09/2025 Encounters Encounter Location Date Provider Diagnosis [facility] [address] [place] [address] 03/09/2025 Evita Bond BMI 32.0-32.9,adult Z68.32 ; Tobacco abuse Z72.0 ; Exercise counseling Z71.82 ; Dietary counseling Z71.3 ; Tobacco abuse counseling Z71.6 and Methamphetamine abuse F15.10 [facility] [address] [place] [address] 03/09/2025 Evita Bond Assessments Encounter Date Diagnosis (ICD Code) Assessment Notes Treatment Notes Treatment Clinical Notes Section Notes 03/09/2025 Tobacco abuse (ICD-10 - Z72.0) 03/09/2025 BMI 32.0-32.9,adult (ICD-10 - Z68.32) 03/09/2025 Exercise counseling (ICD-10 - Z71.82) 03/09/2025 Dietary counseling (ICD-10 - Z71.3) 03/09/2025 Tobacco abuse counseling (ICD-10 - Z71.6) 03/09/2025 Methamphetamine abuse (ICD-10 - F15.10) Plan Of Treatment No Information Insurance Providers Payer Name Payer Address Payer Phone Subscriber Number Group Number Insured Name Patient Relationship to Insured Coverage Start Date Coverage End Date [facility] [address] [place] [phone] [id number] Wenceslao Johnson Self - patient is the insured Medical (General) History Medical History History ICD Code Anxiety ADHD Surgical History Surgery Date(Month/Year) Left ankle screws Hospitalization History Reason Date(Month/Year) Left ankle has screws put in
[2025-04-07 11:33] VITALS: BP 124/88; PULSE 118; RESP 16; TEMP 36.8; O2SAT 99
--- NOTE | 2025-04-07 12:29 | ED.LOWEXIN ---
HPI - Extremity Injury (Lower) General Chief Complaint: Extremity Injury, Lower Stated Complaint: right ankle injury Time Seen by Provider: 04/07/25 11:51 History of Present Illness HPI Narrative: Patient is a 29-year-old male who presents to the ER after sustaining a right foot injury. He reports he was at work when a 400 lb pallet of boxes fell on his right foot. Patient endorses significant pain and swelling on top of his right foot. He reports he can feel all five of his metatarsals. Patient endorses a history of left ankle surgery but denies any other pertinent medical history. He denies any calf pain, toe pain, or decreased range of motion. Patient does endorse significant pain to the dorsum pedis with extension. Related Data Home Medications ?Medication ?Instructions ?Recorded ?Confirmed ?Last Taken ?Type hydroxyzine pamoate 25 mg capsule 25 mg PO TID 12/12/22 12/12/22 Unknown History paliperidone palmitate 156 mg/mL 156 mg IM MONTHLY 12/12/22 12/12/22 Unknown History intramuscular syringe (Invega Sustenna) sertraline 100 mg tablet mg 09/26/24 Unknown History Allergies Allergy/AdvReac Type Severity Reaction Status Date / Time No Known Allergies Allergy Verified 04/07/25 12:02 Review of Systems Review of Systems: All systems reviewed & are unremarkable except as noted in HPI and below PMFSH Past Medical History Medical History (Updated 04/07/25 @ 14:09 by Fela Henriquez APRN) Alcohol use Drug-induced nausea and vomiting Coffee ground emesis Vomiting bile Hyperactive gag reflex Marijuana use Flat foot [pes planus] (acquired), left foot (09/25/18) Pain in left ankle and joints of left foot Posterior tibial tendinitis, left leg (09/25/18) Sprain of deltoid ligament of left ankle, sequela History of ETOH abuse Depression Anxiety GERD (gastroesophageal reflux disease) Surgical History Surgical History Rapelje teeth extracted History of ankle surgery Family History Family History Father Vomiting Grandparent Diabetes mellitus DM II with Insulin dependence Social History Social History Smoking packs per day: 1 Smoking cigarettes per day: 20.0 Years smoked: 6 Smoking pack-years: 6.00 Smoking status: Current every day smoker Tobacco type: cigarettes Second hand tobacco smoke exposure: Yes Alcohol intake: current Drinks per week: 4 Substance use: current Substance use type: does not use Living arrangements: with family Occupation/Education: occupation Gender identity (if verbalized by the patient): Male Spiritual care concerns: No Exam Narrative: GENERAL: Well appearing, well-nourished, non-toxic, in no acute distress. HEAD: Normocephalic, atraumatic. NECK: Supple. No adenopathy, no masses. RESPIRATORY: Airway patent, respirations nonlabored. Clear to auscultation bilaterally, no rales, rhonchi, wheezing. CARDIOVASCULAR: Regular rate and rhythm without murmurs, rubs, or gallops. Peripheral pulses 2+ and equal bilaterally. ABDOMINAL: Soft, nontender, nondistended, no hepatosplenomegaly. Normoactive BS. MUSCULOSKELETAL: Moves all extremities. Strength/ROM intact without gross deformities. SKIN: Warm, dry, normal color. No rashes. Significant edema to pedal dorsum, mild discoloration (starting to turn purple), + bruising below R ankle. Increased pain with extension. NEURO: A&O X3. Speech clear. Cranial nerves II-XII intact. No ataxic movements. PSYCHIATRIC: Appropriate mood and affect. Normal interaction. Course Vital Signs Vital signs: Vital Signs Temperature 36.8 C 04/07/25 11:33 Pulse Rate 118 H 04/07/25 11:33 Respiratory Rate 16 04/07/25 11:33 Blood Pressure 124/88 04/07/25 11:33 Pulse Oximetry 99 04/07/25 11:33 Temperature 36.8 C 04/07/25 11:33 Pulse Rate 118 H 04/07/25 11:33 Respiratory Rate 16 04/07/25 11:33 Blood Pressure 124/88 04/07/25 11:33 Pulse Oximetry 99 04/07/25 11:33 MDM - Extremity Injury (Lower) MDM Narrative Medical decision making narrative: Patient is a 29-year-old male who presents to the ER after sustaining a right foot injury. He reports he was at work when a 400 lb pallet of boxes fell on his right foot. Patient endorses significant pain and swelling on top of his right foot. He reports he can feel all five of his metatarsals. Patient endorses a history of left ankle surgery but denies any other pertinent medical history. He denies any calf pain, toe pain, or decreased range of motion. Patient does endorse significant pain to the dorsum pedis with extension. Imaging Ordered: Right ankle x-ray Medications Ordered: Sheridan p.o., Toradol 60 mg IM Results: Pt's ankle x-ray indicates .No acute bony abnormality identified. Soft tissue swelling about the lateral malleolus. If symptoms persist or worsen, consider a short-term follow-up study or additional imaging for further assessment. Diagnosis: Right foot hematoma Consults: Orthopedic surgery or Podiatry Patient Education/Shared MDM: Results of imaging shared with patient. He endorses improvement of symptoms following medication administration. Patient strongly advised to follow-up with orthopedic surgery or Podiatry as soon as possible. He will be discharged home with a prescription for Sheridan and crutches. Strict return precautions provided. Patient verbalized understanding and is in agreement with plan. Vital signs stable at time of discharge. All questions answered. Differential Diagnosis Differential diagnosis: Likely ankle sprain and strain, ankle fracture and other (talus fracture) Imaging Data Attestation: I personally reviewed and interpreted this imaging study as follows: Radiologist's impression: Impressions Ankle X-Ray 04/07/25 11:56 IMPRESSION: 1.No acute bony abnormality identified. Soft tissue swelling about the lateral malleolus. If symptoms persist or worsen, consider a short-term follow-up study or additional imaging for further assessment. Discharge Plan Discharge Clinical Impression: Edema of right foot, Hematoma of right foot, Acute pain of right foot Patient Disposition: Home Condition: Stable Instructions: Antibiotic Form, P.R.I.C.E. Treatment (ED) Additional Instructions: Please return to the ER with any worsening symptoms. Follow-up with Orthopedic surgery or Podiatry as soon as possible. Take all medications as prescribed, including regularly scheduled medications. You may take Sheridan sparingly for pain control. Patient Language: [place] Prescriptions: No Action hydroxyzine pamoate 25 mg capsule 25 mg PO TID Invega Sustenna 156 mg/mL syringe 156 mg IM MONTHLY sertraline 100 mg tablet benzonatate 200 mg capsule 200 mg PO TID PRN (Reason: cough) Qty: 20 0RF methylprednisolone [Medrol (Aric)] 4 mg tablets,dose pack See Rx Instructions .ROUTE .COMPLEX Qty: 21 0RF Rx Instructions: orally per package directions oseltamivir 75 mg capsule 75 mg PO Q12H 5 Days Qty: 10 0RF Follow-up/Referrals: Edwina,Milton De La Cruz MD [Primary Care Provider] - Radha Horne DPM [Physician] - (podiatry) Jan Winchester MD [Physician] - (orthopedic surgery) Stand Alone Forms: Work/School Release IP
--- OUTSIDE RECORDS SUMMARY | 2025-04-07 12:39 | XMS_ITS | Clinical Summary ---
Author Organization [facility] Address [address] [place] [address] Care Team Providers Care Admission Specialist Name Role Phone Unavailable Primary Care Provider Unavailabl e Source Comments [facility],non-owned Affiliates and Associated Physician Practices is amultiple site organization consisting of ambulatory clinics and hospital sitesin [place], [place], [place] and [place]. This disclosure is being madepursuant to the Care Everywhere program and may not contain all information available regarding this patient. 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80: Non Reactive Blood BLOOD SPECIMEN / Unknown Venipuncture / Unknown 03/01/2018 2:23 PM CDT 03/01/2018 2:50 PM CDT Narrative [facility] - 03/02/2018 6:46 PM CDT Non Reactive - Antibodies to Hepatitis C virus (HCV) were not detected, result does not exclude early acute HCV infection. Non Reactive - Antibodies to Hepatitis C virus (HCV) were not detected, result does not exclude early acute HCV infection. us Evens Angel MD LAB - CHEMISTRY ORDERABLES Fin al Result [facility] [address] [place] [address] from Last 3 Months or Most Recently Relevant to Health Maintenance Insurance MEDICAID - [place] [facility] MEDICAID [facility]
--- OUTSIDE RECORDS SUMMARY | 2025-04-07 12:39 | XMS_ITS | Clinical Summary ---
Author Organization [facility] Address [address] [place] [id number] Care Team Providers Care Strategy Director Name Role Phone None, Provider MD Primary Care Provider Unavaila ble Allergies No known active allergies Encounters Date Type Department Care Team Description 03/25/2025 9:55 PM CDT - 03/25/2025 11:19 PM CDT Emergency [facility] Emergency [address], [place] [id number] Sarah Tripp, DATABASE MARKETING ANALYST Cough Discharge Disposition: Home or Self Care (Routine Discharge) 03/25/2025 Travel 02/28/2025 3:00 PM CDT - 02/28/2025 5:35 PM CDT Emergency [facility] Emergency [address] [place] [address] Gracie Weinberg MD Suicidal Ideation; Hallucinations Discharge Disposition: Home or Self Care (Routine Discharge) 02/28/2025 Travel from Last 3 Months Social History Tobacco Use Types Packs/Day Years Used Date Smoking Tobacco: Never Assessed Sex and Gender Information Value Date Recorded Sex Assigned at Not on file 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 Gender Identity Not on file Sexual Orientation Not on file Last Filed Vital Signs Vital Sign Reading Time Taken Comments Blood Pressure 126/82 03/25/2025 9:49 PM CDT Pulse 98 03/25/2025 9:49 PM CDT Temperature 37.2 C (98.9 F) 03/25/2025 9:49 PM CDT Respiratory Rate 16 03/25/2025 9:49 PM CDT Oxygen Saturation 98% 03/25/2025 9:49 PM CDT Inhaled Oxygen Concentration - - Weight 100.6 kg (221 lb 12.5 oz) 03/25/2025 9:49 PM CDT Height 170.2 cm (5' 7) 03/25/2025 9:49 PM CDT Body Mass Index 34.74 03/25/2025 9:49 PM CDT Plan of Treatment Health Maintenance Due Date Last Done Comments Annual Physical 2000 COVID-19 Vaccine ( season) 2024 05/27/2021, 05/06/2021 DTaP, Tdap and Td Vaccines (9 - Td or Tdap) 11/19/2030 11/19/2020, 03/14/2012, 04/15/2009, Additional history exists Hepatitis B Vaccines Completed 05/01/2002, 04/29/1998, 1997, Additional history exists Meningococcal Vaccine Completed 10/22/2013 HPV Vaccines Completed 03/01/2015, 11/2014, 10/22/2013 Hepatitis C Completed 03/01/2018, 04/30/2016 Meningococcal B Vaccine Aged Out No l onger eligible based on patient's age to complete this topic Pneumococcal Vaccine: Pediatrics (0 to 5 Years) and At-Risk Patients (6 to 49 Years) Aged Out No longer eligible based on patient's age to complete this topic RSV Immunizations Under 20 Months Aged Out No longer eligible based on patient's age to complete this topic Procedures Procedure Name Priority Date/Time Associated Diagnosis Comments CORONAVIRUS (COVID-19) ANTIGEN Nurse Collected Priority 03/25/2025 10:21 PM CDT STREP A RAPID Nurse Collected Priority 03/25/2025 10:21 PM CDT ECG 12-LEAD Routine 02/28/2025 3:18 PM CDT RESPIRATORY PCR PANEL 2 Nurse Collected Priority 02/28/2025 3:16 PM CDT THYROID STIM HORMONE TSH STAT 02/28/2025 3:15 PM CDT MAGNESIUM STAT 02/28/2025 3:15 PM CDT HEPATIC FUNCTION PANEL STAT 02/28/2025 3:15 PM CDT ETHANOL STAT 02/28/2025 3:15 PM CDT BASIC METABOLIC PANEL STAT 02/28/2025 3:15 PM CDT HEPATITIS PANEL,ACUTE NOW 04/30/2016 12:54 PM CDT from Last 3 Months or Most Recently Relevant to Health Maintenance Results * CORONAVIRUS (COVID-19) ANTIGEN (03/25/2025 10:21 PM CDT) CORONAVIRUS ANTIGEN IA NEGATIVE NEGATIVE 03/25/2025 11:07 PM CDT [facility] Comment: NEGATIVE RESULTS SHOULD BE TREATED PRESUMPTIVE AND CONFIRMED WITH A MOLECULAR ASSAY IF NECESSARY FOR PATIENT MANAGEMENT. NEGATIVE RESULTS DO NOT RULE OUT COVID 19 AND SHOULD NOT BE USED THE SOLE BASIS FOR TREATMENT OR PATIENT MANAGEMENT DECISIONS, INCLUDING INFECTION CONTROL DECISIONS. NEGATIVE RESULTS SHOULD BE CONSIDERED IN THE CONTEXT OF A PATIENT'S RECENT EXPOSURES, HISTORY AND THE PRESENCE OF CLINICAL SIGNS AND SYMPTOMS CONSISTENT WITH COVID 19. THIS TEST HAS BEEN AUTHORIZED BY THE FDA UNDER AN EMERGENCY USE AUTHORIZATION (EUA) FOR USE BY AUTHORIZED LABORATORIES. SPECIMEN TYPE NASAL 03/25/2025 10:22 PM CDT [facility] NASAL NASAL STRUCTURE / Unknown 03/25/2025 10:21 PM CDT Sarah Tripp NP MICROBIOLOGY - GENERAL ORDERABL ES Final Result [facility] [address] [place] [address], [phone] * STREP A RAPID (03/25/2025 10:21 PM CDT) SPECIMEN SOURCE THROAT 03/25/2025 10:22 PM CDT [facility] RAPID STREP TEST NEGATIVE NEGATIVE 03/25/2025 11:05 PM CDT [facility] Comment:NEGATIVE FOR GROUP A BETA STREP ANTIGEN STRUCTURE OF ANTERIOR PORTION OF NECK / Unknown 03/25/2025 10:21 PM CDT us Sarah Tripp NP MICROBIOLOGY - GENERAL ORDERABL ES Final Result Performing Organization Address City/[facility]/ZIP Co de Phone Number [facility] [address] [place] [address], [place] [phone] * ECG 12 lead (02/28/2025 3:18 PM CDT) 02/28/2025 3:18 PM CDT Narrative [facility] - 02/28/2025 3:19 PM CDT [facility]-ED Test Date: 2025-02-28 Pat Name: [facility] Department: Room: [facility] Gender: Male Dictionary Editor: : 1995 Requested By: GRACIE WEINBERG Order Number: [id number] Reading MD: Evens Lazar Measurements Intervals [place] Rate: 78 P: 26 AK: 148 QRS: 58 QRSD: 99 T: 54 QT: 379 QTc: 432 Interpretive Statements SINUS RHYTHM Procedure Note Evens Lazar MD - 02/28/2025 [facility]-ED Test Date: 2025-02-28 Pat Name: [facility] Department: 70 Room: [facility] Gender: Male Dictionary Editor: : 1995 Requested By: GRACIE WEINBERG Order Number: [id number] Reading ARJUN Lazar Measurements Intervals [place] Rate: 78 P: 26 AK: 148 QRS: 58 QRSD: 99 T: 54 QT: 379 QTc: 432 Interpretive Statements SINUS RHYTHM us Gracie Weinberg MD ECG ORDERABLES Final Result [facility] * BIOFIRE PCR UPPER RESPIRATORY PROFILE (RESPIRATORY PCR PANEL 2) (02/28/2025 3:16 PM CDT) Pathologist [facility] ADENOVIRUS PCR (RESP) NOT DETECTED NOT DETECTED 02/28/2025 4:22 PM CDT [facility] CORONAVIRUS 229E PCR (RESP) NOT DETECTED NOT DETECTED 02/28/2025 4:22 PM CDT [facility] CORONAVIRUS HKU1 PCR (RESP) NOT DETECTED NOT DETECTED 02/28/2025 4:22 PM CDT [facility] CORONAVIRUS NL63 PCR (RESP) NOT DETECTED NOT DETECTED 02/28/2025 4:22 PM CDT [facility] CORONAVIRUS OC43 PCR (RESP) NOT DETECTED NOT DETECTED 02/28/2025 4:22 PM CDT [facility] METAPNEUMOVIRUS PCR (RESP) NOT DETECTED NOT DETECTED 02/28/2025 4:22 PM CDT [facility] RHINOVIRUS/ENTEROV IRUS PCR (RESP) NOT DETECTED NOT DETECTED 02/28/2025 4:22 PM CDT [facility] INFLUENZA A PCR (RESP) NOT DETECTED NOT DETECTED 02/28/2025 4:22 PM CDT [facility] INFLUENZA B PCR (RESP) NOT DETECTED NOT DETECTED 02/28/2025 4:22 PM CDT [facility] PARAINFLUENZA 1 PCR (RESP) NOT DETECTED NOT DETECTED 02/28/2025 4:22 PM CDT [facility] PARAINFLUENZA 2 PCR (RESP) NOT DETECTED NOT DETECTED 02/28/2025 4:22 PM CDT [facility] PARAINFLUENZA 3 PCR (RESP) NOT DETECTED NOT DETECTED 02/28/2025 4:22 PM CDT [facility] PARAINFLUENZA 4 PCR (RESP) NOT DETECTED NOT DETECTED 02/28/2025 4:22 PM CDT [facility] RSV PCR (RESP) NOT DETECTED NOT DETECTED 02/28/2025 4:22 PM CDT [facility] B PARAPERTUSIS PCR (RESP) NOT DETECTED NOT DETECTED 02/28/2025 4:22 PM CDT [facility] BORDETELLA PERTUSSIS PCR (RESP) NOT DETECTED NOT DETECTED 02/28/2025 4:22 PM CDT [facility] CHLAMYDOPHILA PNEUMONIAE PCR (RESP) NOT DETECTED NOT DETECTED 02/28/2025 4:22 PM CDT [facility] MYCOPLASMA PNEUMONIAE PCR (RESP) NOT DETECTED NOT DETECTED 02/28/2025 4:22 PM CDT [facility] CORONAVIRUS SARS COV 2 PCR (RESP) NOT DETECTED NOT DETECTED 02/28/2025 4:22 PM CDT [facility] NASOPHARYNGEAL SWAB / Unknown 02/28/2025 3:16 PM CDT Gracie Weinberg MD MICROBIOLOGY - GENERAL ORDER CAITLIN Final Result Performing Organization Address City/State/[facility] Co de Phone Number [facility] [address] [place] [address], [phone] * BASIC METABOLIC PANEL (02/28/2025 3:15 PM CDT) SODIUM S/P/B 140 136 - 145 MMOL/L 02/28/2025 4:01 PM CDT [facility] POTASSIUM S/P/B 3.5 3.5 - 5.1 MMOL/L 02/28/2025 4:01 PM CDT [facility] CHLORIDE S/P/B 109 97 - 115 MMOL/L 02/28/2025 4:01 PM CDT [facility] CO2 26.3 21.0 - 32.0 MMOL/L 02/28/2025 4:01 PM CDT [facility] GLUCOSE 103 74 - 106 MG/DL 02/28/2025 4:01 PM CDT [facility] BUN 9 7 - 18 MG/DL 02/28/2025 4:01 PM CDT [facility] CREATININE S/P/B 0.88 0.70 - 1.30 MG/DL 02/28/2025 4:01 PM CDT [facility] CALCIUM S/P/B 8.8 8.5 - 10.1 MG/DL 02/28/2025 4:01 PM CDT [facility] ANION GAP 4.7 2.0 - 10.0 MMOL/L 02/28/2025 4:01 PM CDT [facility] OSMOLALITY (CALC) 289 MOSM/KG 025 4:01 PM CDT [facility] Comment:REFERENCE RANGE NOT ESTABLISHED GFR ESTIMATE >90 >90 ML/MIN/1. 73 M2 02/28/2025 4:01 PM CDT [facility] GFR NOTES GFR REFERENCE S: 02/28/2025 4:01 PM CDT [facility] Comment: THE ESTIMATED GFR IS CALCULATED USING THE 2020 CKD-EPI EQUATION. THE FOLLOWING CATEGORIES FOR GRADING RENAL FUNCTION ARE RECOMMENDED BY THE INTERNATIONAL SOCIETY OF NEPHROLOGY (KDIGO 2012 CLINICAL PRACTICE GUIDELINE). G1,NORMAL OR HIGH: >89 ml/min/1.73 m2 G2,MILDLY DECREASED: 60-89 ml/min/1.73 m2 G3A,MILDLY TO MODERATELY DECREASED: 45-59 ml/min/1.73 m2 G3B,MODERATELY TO SEVERELY DECREASED: 30-44 ml/min/1.73 m2 G4,SEVERELY DECREASED: 15-29 ml/min/1.73 m2 G5,KIDNEY FAILURE: <15 ml/min/1.73 m2 02/28/2025 3:15 PM CDT us Gracie Weinberg MD LABORATORY Final Result [facility] [address] [place] [address], [phone] * (ABNORMAL) HEPATIC FUNCTION PANEL (02/28/2025 3:15 PM CDT) BILIRUBIN TOTAL S/P/B 1.1(H) 0.2 - 1.0 MG/DL 02/28/2025 4:01 PM CDT [facility] BILIRUBIN DIRECT S/P/B 0.2 0.0 - 0.2 MG/DL 02/28/2025 4:01 PM CDT [facility] ALKALINE PHOSPHATASE S/P/B 81 45 - 115 U/L 02/28/2025 4:01 PM CDT [facility] AST 29 15 - 37 U/L 02/28/2025 4:01 PM CDT [facility] ALT 54 16 - 61 U/L 02/28/2025 4:01 PM CDT [facility] TOTAL PROTEIN S/P/B 6.9 6.4 - 8.2 G/DL 02/28/2025 4:01 PM CDT [facility] ALBUMIN S/P/B 3.3(L) 3.4 - 5.0 G/DL 02/28/2025 4:01 PM CDT [facility] 02/28/2025 3:15 PM CDT us Gracie Weinberg MD LABORATORY Final Result Performing Organization Address City/[facility]/ZIP Co de Phone Number [facility] [address] [place] [id number], [phone] * (ABNORMAL) THYROID STIM HORMONE TSH (02/28/2025 3:15 PM CDT) TSH 0.275(L) 0.358 - 3.740 uIU/ML 02/28/2025 4:01 PM CDT [facility] Comment: ASSAY PERFORMED BY CHEMILUMINESCENCE METHODOLOGY USING [employer]. PATIENT RESULTS DETERMINED BY ASSAYS USING DIFFERENT MANUFACTURERS FOR METHODS MAY NOT BE COMPARABLE. 02/28/2025 3:15 PM CDT us Gracie Weinberg MD LABORATORY Final Result Performing Organization Address City/[facility]/ZIP Co de Phone Number [facility] [address] [place] [address], [place] [phone] * MAGNESIUM (02/28/2025 3:15 PM CDT) [facility] MAGNESIUM 1.9 1.6 - 2.6 MG/DL 02/28/2025 4:01 PM CDT [facility] 02/28/2025 3:15 PM CDT us Gracie Weinberg MD LABORATORY Final Result Performing Organization Address [facility]/ZIP Co de Phone Number [facility] [address] [place] [address], [place] [phone] * ETHANOL (02/28/2025 3:15 PM CDT) [facility] ALCOHOL S/P/B ZERO 0 G/DL 02/28/2025 3:40 PM CDT [facility] 02/28/2025 3:15 PM CDT us Gracie Weinberg MD LABORATORY Final Result Performing Organization Address City/[facility]/ZIP Co de Phone Number [facility] [address] [place] [address], [place] [phone] * HEPATITIS PANEL,ACUTE (04/30/2016 12:54 PM CDT) [facility] HEPATITIS B SURFACE AG NON-REACTI VE NON-REACT [...] [facility] [place] [address], [phone] from Last 3 Months or Most Recently Relevant to Health Maintenance Insurance [employer] Care Teams Strategy Director Relationship Specialty Start Date End Date None, Provider, PCP - General UNKNOWN PHYSICIAN SPECIALTY 02/28/25
--- OUTSIDE RECORDS SUMMARY | 2025-04-07 12:39 | XMS_ITS | Clinical Summary ---
Author Organization [facility] [place] [address] [facility] lt Address [address] [place] [address] Care Team Providers Care Tow Mate Name Role Phone Marck Gee MD Unavailable Milton Bland MD Primary Care Provider [phone] Victoria Tran MD Unavailable [phone] Allergies No known active allergies Medications albuterol [...] 5th finger, seen in Urgent Care and [facility]. Assessment & Plan (12/17/2022 4:44 PM CDT): The right fifth finger cellulitis persists. It centers over the dorsal fifth PIP joint where the wound remains open and gaping with exposure of subcutaneous fat. He did go back to work and was swinging a hammer which is probably not the best thing for this condition. 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 There is no definite tendon or [...] planned. Assessment & Plan (09/16/2022 1:32 PM NURSE RESEARCHER): Subacute, interval improvement with initiation of Invega [...] monitor. Assessment & Plan (08/30/2022 8:31 PM NURSE RESEARCHER): Acute on chronic. Denies SI HI Start Invega - titrate up for effect. 2 wk f/u - plan peter MYERS if eff. 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 If he must kneel, he should use knee pads. A trial of nonsteroidals might be appropriate. ADHD (attention deficit hype ractivity disorder), combined type 01/04/2020 Assessment & Plan (11/01/2022 7:51 PM NURSE RESEARCHER): Discontinue Adderall since has relapsed again. Assessment & Plan (08/30/2022 8:33 PM NURSE RESEARCHER): Chronic, persistent symptoms of inattention, distractibility, inability [...] discussed. Assessment & Plan (09/11/2021 9:44 PM NURSE RESEARCHER): Chronic, persistent symptoms of inattention, distractibility, inability [...] freq. Assessment & Plan (11/01/2022 7:52 PM NURSE RESEARCHER): Strongly encouraged cessation. Not ready to quit. Referred for substance use treatment. Ambivalent about treatment. Assessment & Plan (09/16/2022 1:32 PM NURSE RESEARCHER): Chronic, persistent use. Likely contributing to psychosis. Not ready or willing to quit at this time. Encouraged substance use treatment. Declined. Assessment & Plan (08/30/2022 8:34 PM NURSE RESEARCHER): Not using. Strongly cautioned - no use. Agreed. Assessment & Plan (06/03/2022 12:23 PM CDT): Recommend decreasing overall use. Assessment & Plan (08/07/2021 3:32 PM NURSE RESEARCHER): He smokes a little bit every day which helps him calm down after a day of work. Assessment & Plan (06/14/2021 3:59 PM CDT): Reduce overall use. Assessment & Plan (10/10/2019 9:55 AM NURSE RESEARCHER): Chronic, persistent, does not see as a [...] labs Assessment & Plan (09/05/2019 4:23 PM NURSE RESEARCHER): Due to intractable vomiting, improving, cont to [...] interval. Assessment & Plan (10/10/2019 9:59 AM NURSE RESEARCHER): Chronic, persistent, admixed with substance use issues. [...] consent. Assessment & Plan (09/04/2019 6:02 PM NURSE RESEARCHER): [facility] meds Assessment & Plan (06/19/2019 2:56 [...] disorder , severe, in sustained remission, dependence ([facility]) 06/19/2019 Assessment & Plan (12/17/2022 4:47 PM CDT): He is in group therapy and is working hard to avoid amphetamines but still snorts occasionally. Assessment & Plan (11/26/2022 4:14 PM CDT): Last use 10 days ago. Ongoing PI and voices. Assessment & Plan (11/01/2022 7:53 PM NURSE RESEARCHER): Admits that he used about a week [...] available. Assessment & Plan (08/30/2022 8:34 PM NURSE RESEARCHER): Relapse - no use reported since Jun. Cont cessation. Needs drug tx. Referred. Assessment & Plan (09/11/2021 9:44 PM NURSE RESEARCHER): Continued cessation highly advised. Denies any use. Assessment & Plan (06/14/2021 4:01 PM CDT): Continued cessation as advised. Denies any use. Assessment & Plan (12/12/2020 5:05 PM CDT): Denies any use. Continued cessation highly advised. Assessment & Plan (10/10/2019 9:56 AM NURSE RESEARCHER): Chronic, stable. Denies any use of methamphetamine. [...] use. Assessment & Plan (09/16/2022 1:32 PM NURSE RESEARCHER): Chronic and persistent use. Advised against using alcohol and drugs. Patient states that he is going to continue using them. He does not have much interest to quit at this time. Assessment & Plan (08/07/2021 3:34 PM NURSE RESEARCHER): He is still drinking heavily every day. Other mood problems seem to be better. We encouraged him to follow-up with psychiatry and seek assistance through other agencies such as [facility]. We will check some follow-up labs for toxic effects of heavy daily alcohol use. Assessment & Plan (10/10/2019 10:00 AM NURSE RESEARCHER): Chronic issue, treatment recommended, does not wish [...] monitor. Assessment & Plan (09/11/2021 9:44 PM NURSE RESEARCHER): Chronic condition, persistent but stable symptoms. Medication [...] interval. Assessment & Plan (10/10/2019 9:57 AM NURSE RESEARCHER): Chronic, persistent, difficult to tell whether not [...] 03/11/2014 Assessment & Plan (09/05/2019 4:23 PM NURSE RESEARCHER): Due to gastritis, IVF, supportive care. Clears only for now, improving and will advance diet as tolerated Tobacco use disorder 02/23/2013 Assessment & Plan (12/14/2022 3:12 PM CDT): He is no longer smoking cigarettes but is vaping. We recommended a pneumococcal vaccination. We can not give him immunizations here due to his insurance. Assessment & Plan (08/07/2021 3:28 PM NURSE RESEARCHER): Smokes cigarettes, about a pack a day. He has no motivation to quit. His father has emphysema and he has relatives who had lung cancer. We discussed the importance of cutting back and quitting now while he is still young. 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 He gets up every day. He enjoys his work. 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 It sounds like there are still some [...] Follow with patient who the patient's outpatient Commission Auditor is Hypokalemia 09/05/2019 10/07/2023 Overview (08/05/2021): See hospital record. Assessment & Plan (09/05/2019 4:23 PM NURSE RESEARCHER): replete Intractable vomiting 09/04/2019 023 Overview (12/30/2022): Cyclic vomiting syndrome vs gastritis per evaluation in 2019. Assessment & Plan (09/04/2019 6:03 PM NURSE RESEARCHER): Cyclic vomiting syndrome vs gastritis. Supportive care GI bleed 09/04/2019 12/30/2022 Overview (12/30/2022): See hospital records. Placed on PPI. Assessment & Plan (09/04/2019 6:08 PM NURSE RESEARCHER): Monitor CBC. Protonix bid Sprain of ligament [...] from baseball, left ankle tendon repair at [facility]. Medical History Medical History Date Comments Obesity [...] on file Legal Sex Male 3:19 AM NURSE RESEARCHER Gender Identity Not on file Sexual Orientation [...] 11/2014, 10/22/2013 Influenza Vaccine Discontinued Insurance AETNA [facility] AETNA BETTER FOR[facility]LY [facility] AETNA [facility] CHOICE PLUS Advance Directives For more information, please contact: [phone] * Full Code (Latest Code Status on [...] 4:14 AM 08/28/2019 7:00 AM Care Teams Tow Mate Relationship Specialty Start Date End Date Milton Bland MD [address] [address] [place] [id number] PCP - General Internal Medicine 08/07/21 Marck Gee MD Surgeon Thoracic Surgery 02/11/20 [place] [id number] [facility] [address] [address] Consulting Physician Plastic Surgery 12/21/22
--- OUTSIDE RECORDS SUMMARY | 2025-04-07 12:39 | XMS_ITS | Encounter Summary ---
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
[2025-04-07] MEDS: KETOROLAC (*BKC) 60 MG/2 ML VIAL IM (12:48)
[2025-04-07] MEDS: HYDROcodone/acetaminophen (*CRX) 5-325 MG TABLET 1 TAB PO (12:48)
== END 2025-04-07 14:39 | disposition home or self-care (01) ==
PROVIDERS: Emergency Provider Registered Nurse; PCP Internal Medicine Infectious Disease
DX: S90.31XA Contusion of right foot, initial encounter (principal); Y99.0 Civilian activity done for income or pay; F17.210 Nicotine dependence, cigarettes, uncomplicated; W20.8XXA Other cause of strike by thrown, projected or falling object, initial encounter
CPT/HCPCS: 29515; 73610; 96372; 99283; A9270; J1885